=== PATIENT | male | born 1940 | race Caucasian/White ===

== ENCOUNTER → 2016-08-26 | Outpatient (CLI) | payer BC ==
[~2016-08-26] MED LIST: ATOR-26 PO; AVD5 PO; CLIN150C PO; CYCL10TA6 PO; DICL-201 PO; INSU1INJ SC; LISI20TA3 PO; LPR50X PO; LSX/80 PO; MAGN1TAB41 PO; METF-384 PO; POTA-335 PO; PRD150 PO; RPF/8 PO; XNXUNK PO; [UNRECOGNIZED DRUG - CODE] IM
[2016-08-26 11:48] LABS: BASO % 0.5 %; BASO ABS # 0.03 K/uL (0-0.2); COMPLETE YES; EOS % 4.2 %; HEMATOCRIT 49.8 % (42-52); IG% 0.3 %; LYMPH % 34.4 %; LYMPH ABS # 2.03 K/uL (1.2-3.4); MEAN CELL VOLUME 96.1 fL (80-100); MEAN CORPUSCULAR HEMOGLOBIN 31.7 pg (25-34); MEAN CORPUSCULAR HGB CONC 32.9 g/dl (32-36); MEAN PLATELET VOLUME 10.2 fL (7.4-10.4); NEUT % 49.6 %; PLATELET COUNT 179 K/uL (130-400); RED BLOOD COUNT 5.18 M/uL (4.7-6.1)
[2016-08-26 12:01] LABS: ALT/SGPT 31 U/L (12-78); AST/SGOT 17 U/L (15-37); BLOOD UREA NITROGEN 29 mg/dl (7-18); BUN/CREATININE RATIO 19.6 (10-20); CALCIUM 8.7 mg/dl (8.5-10.1); CARBON DIOXIDE 32 mmol/L (21-32); CHLORIDE 105 mmol/L (98-107); GLUCOSE 120 mg/dl (70-99); POTASSIUM 4.5 mmol/L (3.5-5.1); SODIUM 142 mmol/L (136-145)
[2016-08-26 12:06] LABS: ALB/GLOB RATIO 1.1 (0.9-2); ALKALINE PHOSPHATASE 75 U/L (45-117)
[2016-08-26 13:11] LABS: ESTIMATED AVERAGE GLUCOSE 126 mg/dl; HA1C FLAG Normal (Normal)
== END | disposition home or self-care (01) ==
LOC: C.LAB1850 09:48
PROVIDERS: ATTEND Internal Medicine Pulmonary Disease
DX: R39.9 Unspecified symptoms and signs involving the genitourinary system (principal); E78.5 Hyperlipidemia, unspecified; I10 Essential (primary) hypertension; E11.9 Type 2 diabetes mellitus without complications; I25.10 Atherosclerotic heart disease of native coronary artery without angina pectoris; G47.33 Obstructive sleep apnea (adult) (pediatric); I35.1 Nonrheumatic aortic (valve) insufficiency; G47.34 Idiopathic sleep related nonobstructive alveolar hypoventilation

== ENCOUNTER → 2016-09-25 | Outpatient (CLI) | payer BC | END | disposition home or self-care (01) | LOC: C.LAB1850 14:45 | PROVIDERS: ATTEND Urology | DX: N52.9 Male erectile dysfunction, unspecified (principal) ==

== ENCOUNTER → 2017-01-13 | Outpatient (CLI) | payer BC ==
[2017-01-13 13:44] LABS: ESTIMATED AVERAGE GLUCOSE 126 mg/dl; HA1C FLAG Normal (Normal)
[2017-01-13 13:51] LABS: ALT/SGPT 31 U/L (12-78); AST/SGOT 19 U/L (15-37); BLOOD UREA NITROGEN 31 mg/dl (7-18); BUN/CREATININE RATIO 25.6 (10-20); CALCIUM 8.7 mg/dl (8.5-10.1); CARBON DIOXIDE 27 mmol/L (21-32); CHLORIDE 107 mmol/L (98-107); GLUCOSE 116 mg/dl (70-99); POTASSIUM 4.6 mmol/L (3.5-5.1); SODIUM 140 mmol/L (136-145)
[2017-01-13 13:54] LABS: RATIO 24.4 mcg/mg (0-30.0)
[2017-01-13 13:57] LABS: ALB/GLOB RATIO 1.1 (0.9-2); ALKALINE PHOSPHATASE 82 U/L (45-117); CHOLESTEROL 126 mg/dl (0-200); CHOLESTEROL/HDL RATIO 2.3; HDL CHOLESTEROL 54 mg/dl; LDL CHOLESTEROL CALCULATED 54 mg/dl; TRIGLYCERIDES 91 mg/dl (0-150); VERY LOW DENSITY LIPOPROT CALC 18 mg/dl
--- NOTE | 2017-01-22 11:01 | CODING QUERY MEDICAL NECESSITY ---
SUPPORTING DIAGNOSIS NEEDED A supporting diagnosis is required for the test/procedure performed on this patient in order for us to be reimbursed by the patient's insurance. Please provide a supporting diagnosis for the following test/procedure listed below next to the test name along with your signature. *If there is no additional diagnosis for this patient that would support the following test/procedure please document that below next to the test/procedure. Test(s)/Procedure(s) that require a supporting diagnosis: * VITAMIN D, 25-HYDROXY DIAGNOSIS: * VITAMIN B12 DIAGNOSIS: Provider Signature: Date: Thank you Kenyatta Mckeon [employer] Once completed, please kindly fax back to [phone] For questions please call [phone]
== END | disposition home or self-care (01) ==
LOC: C.LAB1850 11:35
PROVIDERS: ATTEND Internal Medicine Endocrinology, Diabetes & Metabolism
DX: E11.9 Type 2 diabetes mellitus without complications (principal); E55.9 Vitamin D deficiency, unspecified; R53.83 Other fatigue

== ENCOUNTER → 2017-03-03 | Outpatient (CLI) | payer BC ==
[2017-03-03 12:05] LABS: BASO % 0.5 %; BASO ABS # 0.03 K/uL (0-0.2); COMPLETE YES; HEMATOCRIT 51.4 % (42-52); IG% 0.3 %; LYMPH % 30.2 %; MEAN CELL VOLUME 98.8 fL (80-100); MEAN CORPUSCULAR HEMOGLOBIN 32.7 pg (25-34); MEAN CORPUSCULAR HGB CONC 33.1 g/dl (32-36); MONO % 10.2 %; NEUT % 54.8 %; PLATELET COUNT 160 K/uL (130-400); WHITE BLOOD COUNT 5.97 K/uL (4.8-10.8)
[2017-03-03 12:18] LABS: ALT/SGPT 30 U/L (12-78); BLOOD UREA NITROGEN 30 mg/dl (7-18); BUN/CREATININE RATIO 23.4 (10-20); CALCIUM 9.1 mg/dl (8.5-10.1); CARBON DIOXIDE 32 mmol/L (21-32); CHLORIDE 105 mmol/L (98-107); GLUCOSE 110 mg/dl (70-99); POTASSIUM 4.5 mmol/L (3.5-5.1); SODIUM 142 mmol/L (136-145)
[2017-03-03 12:23] LABS: ALB/GLOB RATIO 1.1 (0.9-2); ALKALINE PHOSPHATASE 74 U/L (45-117); AST/SGOT 23 U/L (15-37)
[2017-03-03 12:33] LABS: ESTIMATED AVERAGE GLUCOSE 128 mg/dl; HA1C FLAG Normal (Normal)
--- NOTE | 2017-03-18 07:29 | CODING QUERY MEDICAL NECESSITY ---
CQSUPPORTING DIAGNOSIS NEEDED A supporting diagnosis is required for the test/procedure performed on this patient in order for us to be reimbursed by the patient's insurance. Please provide a supporting diagnosis for the following test/procedure listed below next to the test name along with your signature. *If there is no additional diagnosis for this patient that would support the following test/procedure please document that below next to the test/procedure. Test(s)/Procedure(s) that require a supporting diagnosis: DOS 03/03/17 PROSTATE SPECIFIC TEST Provider Signature: Date: Thank you Milka Barrera [employer] Once completed, please kindly fax back to [phone] For questions please call [phone]
--- NOTE | 2017-03-18 07:30 | CODING QUERY MEDICAL NECESSITY ---
CQSUPPORTING DIAGNOSIS NEEDED A supporting diagnosis is required for the test/procedure performed on this patient in order for us to be reimbursed by the patient's insurance. Please provide a supporting diagnosis for the following test/procedure listed below next to the test name along with your signature. *If there is no additional diagnosis for this patient that would support the following test/procedure please document that below next to the test/procedure. Test(s)/Procedure(s) that require a supporting diagnosis: DOS 03/03/17 COMPLETE BLOOD COUNT Provider Signature: Date: Thank you Milka Barrera [employer] Once completed, please kindly fax back to [phone] For questions please call [phone]
== END | disposition home or self-care (01) ==
LOC: C.LAB1850 10:12
PROVIDERS: ATTEND Urology
DX: N52.9 Male erectile dysfunction, unspecified (principal); E78.5 Hyperlipidemia, unspecified; E11.9 Type 2 diabetes mellitus without complications; G47.33 Obstructive sleep apnea (adult) (pediatric); G47.34 Idiopathic sleep related nonobstructive alveolar hypoventilation

== ENCOUNTER → 2017-05-20 | Outpatient (CLI) | payer BC ==
[2017-05-20 17:34] LABS: LYME DISEASE AB IGG NEG (NEG)
[2017-05-20 17:36] LABS: LYME DISEASE AB IGM EQUIVOCAL (NEG)
== END | disposition home or self-care (01) ==
LOC: C.LAB1850 15:31
PROVIDERS: ATTEND Physician Assistant Medical
DX: M25.50 Pain in unspecified joint (principal); T14.8XXA Other injury of unspecified body region, initial encounter; W57.XXXA Bitten or stung by nonvenomous insect and other nonvenomous arthropods, initial encounter

== ENCOUNTER → 2017-09-04 | Outpatient (CLI) | payer BC ==
[~2017-09-04] MED LIST changes: +DABI150C3 PO; -PRD150 PO
[2017-09-04 16:35] LABS: HEMATOCRIT 51.5 % (42-52); MEAN CELL VOLUME 100.4 fL (80-100); MEAN CORPUSCULAR HEMOGLOBIN 33.1 pg (25-34); MEAN PLATELET VOLUME 9.9 fL (7.4-10.4); PLATELET COUNT 196 K/uL (130-400); RED CELL DISTRIBUTION WIDTH CV 14.1 % (11.5-14.5); RED CELL DISTRIBUTION WIDTH SD 52.2 fL (36.4-46.3); WHITE BLOOD COUNT 7.05 K/uL (4.8-10.8)
[2017-09-04 17:04] LABS: ALBUMIN 3.5 gm/dl (3.4-5.0); ALT/SGPT 45 U/L (12-78); BLOOD UREA NITROGEN 36 mg/dl (7-18); CALCIUM 8.5 mg/dl (8.5-10.1); CARBON DIOXIDE 32 mmol/L (21-32); CREATININE 1.76 mg/dl (0.60-1.40); GLUCOSE 117 mg/dl (70-99); POTASSIUM 4.6 mmol/L (3.5-5.1); SODIUM 141 mmol/L (136-145)
[2017-09-04 17:09] LABS: ALKALINE PHOSPHATASE 88 U/L (45-117); AST/SGOT 31 U/L (15-37); TOTAL PROTEIN 6.8 gm/dl (6.4-8.2)
[2017-09-05 08:41] LABS: HEMOGLOBIN A1C 5.5 % (4.5-5.6)
== END | disposition home or self-care (01) ==
LOC: C.LAB1850 15:45
PROVIDERS: ATTEND Urology
DX: R39.9 Unspecified symptoms and signs involving the genitourinary system (principal); E11.9 Type 2 diabetes mellitus without complications

== ENCOUNTER 2019-12-07 09:57 | Inpatient (IN) ==
--- NOTE | 2019-11-09 13:46 | PAT Medication Instructions ---
Medication Instructions Date of Service November 09, 2019 Home Medications Medication Instructions Recorded magnesium oxide 400 mg (241.3 mg 400 mg PO BID #180 tab 04/14/19 magnesium) tablet lansoprazole 30 mg capsule,delayed 30 mg PO DAILY #90 cap 04/21/19 release atorvastatin 80 mg tablet See Rx Instructions .ROUTE 07/19/19 .COMPLEX #90 tablet potassium chloride 20 mEq See Rx Instructions .ROUTE 08/10/19 tablet,extended release .COMPLEX #60 tab metoprolol tartrate 50 mg tablet 50 mg PO BID #180 tab 08/20/19 hydrocodone 5 mg-acetaminophen 300 1 tab PO Q6H #100 tab 08/26/19 mg tablet diazepam 5 mg tablet 5 mg PO TID #90 tab 09/20/19 testosterone cypionate 200 mg/mL 200 mg IM ONCE #5 ml 09/28/19 intramuscular oil diclofenac sodium 75 mg 75 mg PO BID #180 tab 10/18/19 tablet,delayed release lisinopril 20 mg tablet 20 mg PO QAM #90 tab 10/18/19 apixaban 5 mg tablet 5 mg PO BID #180 tab 10/25/19 alprazolam [Xanax] 0.25 mg PO BID PRN dutasteride 0.5 mg PO QAM furosemide 40 mg PO Q2D tamsulosin 0.4 mg PO QPM magnesium oxide 400 mg (241.3 mg magnesium) tablet 400 mg PO BID lansoprazole 30 mg capsule,delayed release 30 mg PO DAILY atorvastatin 80 mg tablet See Rx Instructions .ROUTE .COMPLEX potassium chloride 20 mEq tablet,extended release See Rx Instructions .ROUTE .COMPLEX metoprolol tartrate 50 mg tablet 50 mg PO BID hydrocodone 5 mg-acetaminophen 300 mg tablet 1 tab PO Q6H diazepam 5 mg tablet 5 mg PO TID testosterone cypionate 200 mg/mL intramuscular oil 200 mg IM ONCE diclofenac sodium 75 mg tablet,delayed release 75 mg PO BID lisinopril 20 mg tablet 20 mg PO QAM apixaban 5 mg tablet 5 mg PO BID cetirizine [Zyrtec] 10 mg PO DAILY PRN [id number] acid-lutein [Centrum Silver] 1 tab PO QAM vitamin B complex 1 tab PO QAM Continue as directed testosterone cypionate 200 mg/mL intramuscular oil 200 mg IM ONCE ASK your surgeon for instructions diclofenac sodium 75 mg tablet,delayed release 75 mg PO BID ASK your prescriber and surgeon apixaban 5 mg tablet 5 mg PO BID -- must be held for a minimum of 3 days prior to surgery for spinal anesthesia. DO NOT take the morning of surgery furosemide 40 mg PO Q2D magnesium oxide 400 mg (241.3 mg magnesium) tablet 400 mg PO BID potassium chloride 20 mEq tablet,extended release See Rx Instructions .ROUTE .COMPLEX lisinopril 20 mg tablet 20 mg PO QAM cetirizine [Zyrtec] 10 mg PO DAILY PRN [id number] acid-lutein [Centrum Silver] 1 tab PO QAM vitamin B complex 1 tab PO QAM Take morning of surgery With a small sip of water, OTHERWISE NOTHING TO EAT OR DRINK AFTER MIDNIGHT: alprazolam [Xanax] 0.25 mg PO BID PRN (if needed) dutasteride 0.5 mg PO QAM lansoprazole 30 mg capsule,delayed release 30 mg PO DAILY metoprolol tartrate 50 mg tablet 50 mg PO BID hydrocodone 5 mg-acetaminophen 300 mg tablet 1 tab PO Q6H (if needed, may be taken up to four hours before surgery) diazepam 5 mg tablet 5 mg PO TID Take evening before surgery alprazolam [Xanax] 0.25 mg PO BID PRN (if needed) tamsulosin 0.4 mg PO QPM magnesium oxide 400 mg (241.3 mg magnesium) tablet 400 mg PO BID atorvastatin 80 mg tablet PO QPM metoprolol tartrate 50 mg tablet 50 mg PO BID hydrocodone 5 mg-acetaminophen 300 mg tablet 1 tab PO Q6H (if needed) diazepam 5 mg tablet 5 mg PO TID cetirizine [Zyrtec] 10 mg PO DAILY PRN (if needed) Other Notes If you have any questions please call us at [phone] or [phone] or [phone] or [phone]
--- NOTE | 2019-11-10 15:05 | Anesthesiology Consultation ---
Date of Service November 10, 2019 Assessment & Plan (1) Encounter for pre-operative examination: Note to Kip re: hyperkalemia, await response. Cardio clearance scheduled for 11/21 [facility]. Patient has allergy to ropivicaine listed. He does not recall any specific incident, tho "pruritis with knee injection" is listed. Had bupivacaine regional block with TSA, no complications noted. Also has h/o multilevel spinal fusion. May not be candidate for SAB. Surgeon and patient aware. Chart Review Chart Review: Acceptable Risk for Surgery (pending surgeon ordered cardio clearance 11/21 [facility], optimization of K+) and Patient seen in Pre Admission Testing Teaching & Discussion Instructed NPO after midnight before surgery, except medications with 15 cc of water. Medication instructions provided according to the PAT guidelines. History Surgery Operation Date: 12/07/19 09:25 Proposed Procedures p Right Total Hip Arthroplasty, Possible Acetabular Component - Mann Rubio, Height/Weight Height: 6 ft 3 in Weight: 124.6 kg Allergies Allergy/AdvReac Type Severity Reaction Status Date / Time nickel Allergy Intermediate contact Verified 11/03/19 13:18 dermatitis acetaminophen Allergy Mild PRURITIS Verified 11/03/19 13:18 [From Tylenol-Codeine #3] adhesive Allergy Mild SKIN Verified 11/03/19 13:18 IRRITATION,SWELLING codeine Allergy Mild ITCHING Verified 11/03/19 13:18 Penicillins Allergy Mild ITCHING Verified 11/03/19 13:18 ropivacaine Allergy Mild PRURITIS Verified 11/03/19 13:18 REACTION WITH KNEE INJECTION shrimp Allergy Mild ITCHY HANDS Verified 11/03/19 13:18 Medications Home Medications Medication Instructions Recorded Confirmed Last Taken alprazolam [Xanax] 0.25 mg PO BID PRN 03/12/18 11/03/19 Unknown dutasteride 0.5 mg PO QAM 03/12/18 11/03/19 03/27/18 07:30 furosemide 40 mg PO Q2D 03/12/18 11/03/19 03/25/18 11:00 tamsulosin 0.4 mg PO QPM 03/12/18 11/03/19 03/26/18 23:00 magnesium oxide 400 mg (241.3 mg 400 mg PO BID #180 tab 04/14/19 11/03/19 Unknown magnesium) tablet lansoprazole 30 mg capsule,delayed 30 mg PO DAILY #90 cap 04/21/19 11/03/19 Unknown release atorvastatin 80 mg tablet See Rx Instructions .ROUTE 07/19/19 11/03/19 Unknown .COMPLEX #90 tablet potassium chloride 20 mEq See Rx Instructions .ROUTE 08/10/19 11/03/19 Unknown tablet,extended release .COMPLEX #60 tab metoprolol tartrate 50 mg tablet 50 mg PO BID #180 tab 08/20/19 11/03/19 Unknown hydrocodone 5 mg-acetaminophen 300 1 tab PO Q6H #100 tab 08/26/19 11/03/19 Unknown mg tablet diazepam 5 mg tablet 5 mg PO TID #90 tab 09/20/19 11/03/19 Unknown testosterone cypionate 200 mg/mL 200 mg IM ONCE #5 ml 09/28/19 11/03/19 Unknown intramuscular oil diclofenac sodium 75 mg 75 mg PO BID #180 tab 10/18/19 11/03/19 Unknown tablet,delayed release lisinopril 20 mg tablet 20 mg PO QAM #90 tab 10/18/19 11/03/19 Unknown apixaban 5 mg tablet 5 mg PO BID #180 tab 10/25/19 11/03/19 Unknown cetirizine [Zyrtec] 10 mg PO DAILY PRN 11/03/19 11/03/19 Unknown [id number] acid-lutein [Centrum 1 tab PO QAM 11/03/19 11/03/19 Unknown Silver] vitamin B complex 1 tab PO QAM 11/03/19 11/03/19 Unknown Past Medical History Medical History Atrial fibrillation PAROXYSMAL BPH (benign prostatic hyperplasia) CAD (coronary artery disease) CABG X2 (2012)- [facility], SVG-OM Cardiomyopathy TACHYCARDIA INDUCED (RESOLVED) CHF (congestive heart failure) DIASTOLIC CKD (chronic kidney disease) Degenerative disc disease Diabetes mellitus, type 2 DIET CONTROLLED (KETO DIET) GERD (gastroesophageal reflux disease) CONTROLLED Hearing deficit Hiatal hernia SUSPECTED Hyperlipidemia Hypertension Obesity Osteoarthritis Peripheral neuropathy Personal history of kidney stones Sleep apnea CPAP Valvular disease MODERATE AI Exercise / Class Metabolic Activity III < 4 Walking/Shop/Light housework (Using cane for ambulation, does not have stairs, denies CP or SOB with ambulation) Does endorse some chest pain but feels 2/2 acid reflux, states cardiology also suspects GI etiology Past Family History Family History Unknown Skin cancer Lung cancer Coronary arteriosclerosis Grandmother (Paternal) Family history of diabetes mellitus Past Surgical History Surgical History Fusion of lumbar spine History of appendectomy History of cardiac cath 2012 (NO STENTS) DONE AT [facility] History of carpal tunnel release LEFT History of cataract surgery BILATERAL CATARACT History of cholecystectomy History of colonoscopy History of nasal septoplasty History of surgery PENIS PUMP IMPLANT (STILL INTACT/WORKING) History of tooth extraction HAS IMPLANTS History of total hip arthroplasty RIGHT OLGA LIDIA; REVISION History of total knee replacement B/L Hx of decompression of ulnar nerve LEFT= 09/07/15= GRADE VIEW 2, CARO #2, ETT 7.5 AT [facility] (ROPIVACAINE ALLERGY; NO PNB USED) Hx of heart bypass surgery CABG X2 (2012)- [facility], SVG-OM ([facility]) Past Anesthesia History No Hx of Anesthesia Complications and No Family Hx of Anesthesia Complications History of PONV No Hx of PONV and No Hx of Motion Sickness Social History Smoking Status: Former smoker tobacco type: cigarettes Do You Dip or Chew Tobacco: No Smoking End Date: 1995 Hx Alcohol Use: Yes Alcohol type: wine and hard liquor alcohol intake frequency: a few times a week Hx Substance Use: No substance use type: does not use Review of Systems Pt denies any recent chest pain, shortness of breath, palpitations, cough, fever or URI. +seasonal allergy symptoms, itchy eyes/runny nose Physical Exam Vital Signs BP: 151/57 -- pt reports this is high for him, usually 120s systolic at home P: 65bpm SPO2: 95% RA T: 98.0 F R: 18 ENMT Mouth: + dental restorations (few implants); no chipped teeth and no loose teeth Thyromental Distance: < 3.5 Finger Breadths (3) Mallampati Class: II Neck + limited neck extension (moderately) Respiratory normal respiratory effort Auscultation: lungs clear to auscultation bilaterally Cardiovascular Rate/Rhythm: regular rate and regular rhythm Heart Sounds: + murmur (I/ systolic RSB) Extremities: no edema Testing Laboratory Results 11/10/19 15:20 11/10/19 15:20 PT 11.0 Seconds (9.0-12.0) 11/10/19 15:20 INR 1.0 (0.9-1.1) 11/10/19 15:20 APTT 29.5 Seconds (21.0-31.0) 11/10/19 15:20 Urine Color Yellow 11/10/19 Unknown Urine Appearance Clear (Clear) 11/10/19 Unknown Urine pH 5.0 (4.5-7.5) 11/10/19 Unknown Ur Specific [place] 1.017 (1.000-1.030) 11/10/19 Unknown Urine Protein Negative (Negative) 11/10/19 Unknown Urine Glucose (UA) Negative (Negative) 11/10/19 Unknown Urine Ketones Negative (Negative) 11/10/19 Unknown Urine Nitrite Negative (Negative) 11/10/19 Unknown Ur Leukocyte Esterase Negative (Negative) 11/10/19 Unknown *creatinine is at baseline, pt has CKD. Note sent to PCP re: K+ Electrocardiogram Date: 11/10/19 Findings: + NSR @ (61bpm) and + RBBB When compared with EKG of 04/01/2018, septal infarct is now present. QT has shortened. Ventricular rate is decreased by 30 bpm and QRS axis shifted left. Chest X-Ray Date: 11/10/19 FINDINGS: Cardiac silhouette is enlarged, unchanged. Prior median sternotomy with findings suggestive of CABG. Calcified plaque of the thoracic aortic arch. Left shoulder total joint arthroplasty. No pneumothorax, pleural effusion, airspace consolidation or overt pulmonary edema. Degenerative changes of the right shoulder and spine. IMPRESSION: Cardiomegaly without acute process. Echocardiogram Date: 08/19/19 EF: 55% Moderately dilated left ventricle with normal systolic function. No regional wall motion abnormalities. Severe concentric LVH. Mildly dilated right ventricle with reduced systolic function. Right ventricle not well visualized. At least mild to moderate eccentric aortic regurgitation. Aortic regurgitation may be underestimated due to poor image quality. Technically difficult study, enhanced with IV Definity. No significant change from prior study on 11/28/2014.
--- NOTE | 2019-11-10 15:54 | XRay Report ---
XR chest Pre-admission PA/Lat HISTORY: 79 years-old Male PAT preoperative exam COMPARISON: Chest radiograph 03/30/2018 TECHNIQUE: PA and lateral views of the chest FINDINGS: Cardiac silhouette is enlarged, unchanged. Prior median sternotomy with findings suggestive of CABG. Calcified plaque of the thoracic aortic arch. Left shoulder total joint arthroplasty. No pneumothorax , pleural effusion, airspace consolidation or overt pulmonary edema. Degenerative changes of the righ t shoulder and spine. IMPRESSION: Cardiomegaly without acute process. ACT 112: Negative or not required by law. The above report was generated using voice recognition software. It may contain grammatical, syntax o r spelling errors. Electronically signed by: Richy Pierce M.D. 11/10/2019 3:52 PM
[2019-11-10 16:28] LABS: Basophils # (auto) 0.02 K/uL (0-0.2); Basophils % (auto) 0.3 %; Eosinophils # (auto) 0.22 K/uL (0-0.5); Eosinophils % (auto) 3.5 %; Hematocrit (blood only) 48.6 % (42-52); Hemoglobin 15.9 g/dL (14.0-18.0); Immature Granulocytes # (auto) 0.02 K/uL (0.00-0.02); Immature Granulocytes % (auto) 0.3 %; Lymphocytes # (auto) 1.13 K/uL (1.2-3.4); Lymphocytes % (auto) 18.1 %; Mean Corpuscular Hemoglobin 31.6 pg (25-34); Mean Corpuscular Hgb Conc 32.7 g/dL (32-36); Mean Corpuscular Volume 96.6 fL (80-100); Mean Platelet Volume 10.4 fL (7.4-10.4); Monocytes # (auto) 0.63 K/uL (0.11-0.59); Monocytes % (auto) 10.1 %; Neutrophils # (auto) 4.22 K/uL (1.4-6.5); Neutrophils % (auto) 67.7 %; Platelet Count 158 K/uL (130-400); RDW Coefficient of Variation 14.2 % (11.5-14.5); RDW Standard Deviation 50.3 fL (36.4-46.3); Red Blood Count 5.03 M/uL (4.7-6.1); White Blood Count 6.24 K/uL (4.8-10.8)
[2019-11-10 16:32] LABS: Appearance Urine Clear (Clear); Bilirubin Urine Negative (Negative); Blood Urine Negative (Negative); Color Urine Yellow; Glucose Urine UA Negative (Negative); Ketones Urine Negative (Negative); Leukocyte Esterase Urine Negative (Negative); Nitrite Urine Negative (Negative); Protein Urine Negative (Negative); Specific Gravity Urine 1.017 (1.000-1.030); Urobilinogen Urine Negative (Negative)
[2019-11-10 16:38] LABS: Partial Thromboplastin Ratio 1.1; Partial Thromboplastin Time 29.5 Seconds (21.0-31.0)
[2019-11-10 16:48] LABS: Albumin Level 3.4 gm/dl (3.4-5.0); BUN Creatinine Ratio 36.6 (10-20); Calcium 8.6 mg/dl (8.5-10.1); Creatinine Clr Calc Pharmacy 53.1 ml/min; Est GFR (African American) 46.1; Est GFR (Non-African American) 39.8; Potassium 5.6 mmol/L (3.5-5.1)
--- NOTE | 2019-11-10 16:51 | Electrocardiogram Report ---
Test Reason : Blood Pressure : / mmHG Vent. Rate : 061 BPM Atrial Rate : 061 BPM P-R Int : 196 ms QRS Dur : 186 ms QT Int : 452 ms P-R-T Axes : 060 239 022 degrees QTc Int : 455 ms Normal sinus rhythm Right bundle branch block Abnormal ECG When compared with ECG of 01-APR-2018 07:17, Vent. rate has decreased BY 38 BPM QRS axis Shifted left Septal infarct is now Present QT has shortened Confirmed by Joes Alfredo Crockett ([id number]) on 11/10/2019 4:51:10 PM Referred By: Mann Rubio Confirmed By:Jose Alfredo Crockett
[2019-11-11 05:47] LABS: Estimated Average Glucose 131 mg/dl; Hemoglobin A1C 6.2 % (4.5-5.6)
--- NOTE | 2019-12-04 18:47 | History & Physical Report ---
Date of Service December 07, 2019 Assessment & Plan (1) Failed total hip arthroplasty: I have indicated the patient for revision right total hip replacement, head and liner exchange, possible acetabulum. The risks, benefits and complications of surgery were explained to the patient which include but not limited to infection, acute blood loss, DVT/PE, injury to nerves, vessels, bone, soft tissue, arthrofibrosis, chronic pain, failure of the prosthesis, hip dislocation, leg length discrepancy, need for additional surgery, cardiac and pulmonary events and . The patient wished to proceed with surgery and informed consent was obtained at this time. We will plan to restart the patients home blood thinner, Eliquis post-operatively for DVT prophylaxis. Upon discharge the patient will be discharged home with home health services. Appropriate clearances by PCP and cardiology were obtained. Patient has nickel allergy however has done well over the last 16 years without any adverse reactions with his current implant. History of Present Illness Chief Complaint: Failed right total hip arthroplasty Primary Care Provider: Tylor Almodovar MD The patient is a 79 year old male who presents with failed right total hip arthroplasty. Patient has a history for right hip OLGA LIDIA 11/[address] Mayer. The patient had recurrent instability with multiple dislocation and underwent revision right OLGA LIDIA with constrained liner 08/2003. The patient has done well since without any recurrent of right total hip instability however in August 2019 the patient was seen in the office with increasing right hip pain. XRs at that time demonstrated failure of the constrained liner with a broken displaced ring. The patient has failed outpatient conservative treatments to this point which included NSAIDs and home exercise/walking program. The patient's pain and limited function have progressed to the point where they severely hinder their activities of daily living and they no longer tolerate exercise programs. They are requesting to proceed with revision total hip replacement surgery. Allergies Allergy/AdvReac Type Severity Reaction Status Date / Time nickel Allergy Intermediate contact Verified 12/07/19 10:28 dermatitis adhesive Allergy Mild SKIN Verified 12/07/19 10:28 IRRITATION,SWELLING codeine Allergy Mild ITCHING Verified 12/07/19 10:28 Penicillins Allergy Mild ITCHING Verified 12/07/19 10:28 ropivacaine Allergy Mild PRURITIS Verified 12/07/19 10:28 REACTION WITH KNEE INJECTION shrimp Allergy Mild ITCHY HANDS Verified 12/07/19 10:28 Home Medications Home Medications Medication Instructions Recorded Confirmed Type alprazolam [Xanax] 0.25 mg PO BID PRN 03/12/18 12/07/19 History dutasteride 0.5 mg PO QAM 03/12/18 12/07/19 History tamsulosin 0.4 mg PO QPM 03/12/18 12/07/19 History magnesium oxide 400 mg (241.3 mg 400 mg PO BID #180 tab 04/14/19 12/07/19 Rx magnesium) tablet lansoprazole 30 mg capsule,delayed 30 mg PO DAILY #90 cap 04/21/19 12/07/19 Rx release atorvastatin 80 mg tablet See Rx Instructions .ROUTE 07/19/19 12/07/19 Rx .COMPLEX #90 tablet metoprolol tartrate 50 mg tablet 50 mg PO BID #180 tab 08/20/19 12/07/19 Rx testosterone cypionate 200 mg/mL 200 mg IM ONCE #5 ml 09/28/19 12/07/19 Rx intramuscular oil diclofenac sodium 75 mg 75 mg PO BID #180 tab 10/18/19 12/07/19 Rx tablet,delayed release lisinopril 20 mg tablet 20 mg PO QAM #90 tab 10/18/19 12/07/19 Rx apixaban 5 mg tablet 5 mg PO BID #180 tab 10/25/19 12/07/19 Rx cetirizine [Zyrtec] 10 mg PO DAILY PRN 11/03/19 12/07/19 History ot-olh-dncpi acid-lutein [Centrum 1 tab PO QAM 11/03/19 12/07/19 History Silver] vitamin B complex 1 tab PO QAM 11/03/19 12/07/19 History hydrocodone 5 mg-acetaminophen 300 1 tab PO Q6H #100 tab 11/18/19 12/07/19 Rx mg tablet diazepam 5 mg PO TID PRN 12/07/19 12/07/19 History Past Med/Surg History Medical History Atrial fibrillation PAROXYSMAL BPH (benign prostatic hyperplasia) CAD (coronary artery disease) CABG X2 (2012)- [facility], SVG-OM Cardiomyopathy TACHYCARDIA INDUCED (RESOLVED) CHF (congestive heart failure) DIASTOLIC CKD (chronic kidney disease) Degenerative disc disease Diabetes mellitus, type 2 DIET CONTROLLED (KETO DIET) GERD (gastroesophageal reflux disease) CONTROLLED Hearing deficit Hiatal hernia SUSPECTED Hyperlipidemia Hypertension Obesity Osteoarthritis Peripheral neuropathy Personal history of kidney stones Sleep apnea CPAP Valvular disease MODERATE AI Surgical History Fusion of lumbar spine History of appendectomy History of cardiac cath 2012 (NO STENTS) DONE AT [facility] History of carpal tunnel release LEFT History of cataract surgery BILATERAL CATARACT History of cholecystectomy History of colonoscopy History of nasal septoplasty History of surgery PENIS PUMP IMPLANT (STILL INTACT/WORKING) History of tooth extraction HAS IMPLANTS History of total hip arthroplasty RIGHT OLGA LIDIA; REVISION History of total knee replacement B/L Hx of decompression of ulnar nerve LEFT= 09/07/15= GRADE VIEW 2, CARO #2, ETT 7.5 AT [facility] (ROPIVACAINE ALLERGY; NO PNB USED) Hx of heart bypass surgery CABG X2 (2012)- [facility]OM[facility]-L[facility], SVG-OM ([facility]) Family History Unknown Skin cancer Lung cancer Coronary arteriosclerosis Grandmother (Paternal) Family history of diabetes mellitus Social History Preferred Language: Ivorian Communication Ability: Effective Visual Impairment: No Limitations Lead Architect Required: No Beliefs That Will Affect Care: None marital status: Current Living Situation: Spouse Feels Safe at Home: Yes Safety Concerns: Feels Safe At This Time Smoking Status: Former smoker Tobacco Type: cigarettes ; Age Started Using Tobacco: 15 ; Age Quit Using Tobacco: 56 ; packs per day: 1.5 ; Do You Dip or Chew Tobacco: No ; Smoking End Date: 1995 ; Number of Years Since Quit: 24 ; Second Hand Exposure: Yes (IN THE PAST) ; Tobacco Cessation Education Requested by Patient: No Hx Alcohol Use: Yes Alcohol type: wine and hard liquor Hx Substance Use: No Review of Systems Review of Systems: All systems reviewed & are unremarkable except as noted in HPI & below Constitutional: as per Subjective / HPI Physical Exam Physical Exam: RLE NVSI +EHL/FHL/TA/GS SILT grossly, +2 DP pulse, compartments soft NT, antalgic gait. Constitutional: WD/WN, vitals as above Eyes: PERRL, conjunctivae normal, anicteric sclerae ENMT: external ear and nose normal, oropharynx normal Neck: trachea midline, no thyromegaly Respiratory: normal respiratory effort, lungs clear to auscultation Cardiovascular: RRR, no murmur, no edema Gastrointestinal (Abdomen): normal bowel sounds, soft, nontender, no hepatosplenomegaly Musculoskeletal: no cyanosis or clubbing, extremities motor strength 5/5 Skin: no rashes, warm and dry Neurologic: patellar DTR's 2+ bilat, sensation intact Psychiatric: A+Ox3, euthymic affect Lymphatic: no cervical or axillary lymphadenopathy Results & Data Results & Data ([facility]) Diagnostic Findings XRs of the right hip demonstrate a well aligned well fixed total hip prothesis with a constrain liner, the ring is displaced and broken in two pieces. Bone scan of the right hip negative for infectious process or loosening.
[~2019-12-07 09:57] MED LIST changes: +ACETAMINOPHEN 500 MG TAB PO SCH; -ATOR-26 PO; -AVD5 PO; +BUPIVACAINE 0.5 % 5 MG/1 ML PF 10ML VIAL ONE; -CLIN150C PO; +CLINDAMYCIN 600 MG/54 ML BAG IV SCH; -CYCL10TA6 PO; +CeleBREX 200 MG CAP PO SCH; -DABI150C3 PO; -DICL-201 PO; +FAMOTIDINE 20 MG TAB PO SCH; +GABAPENTIN 300 MG CAP PO SCH; -INSU1INJ SC; -LISI20TA3 PO; -LPR50X PO; +LR 500ML BOLUS, THEN 15ML/HR IV SCH; -LSX/80 PO; -MAGN1TAB41 PO; -METF-384 PO; +METOCLOPRAMIDE HCL 10 MG TABLET PO SCH; -POTA-335 PO; -RPF/8 PO; +TRANEXAMIC ACID 1,000 MG **IV Intra-op IV SCH; +TRANEXAMIC ACID 1,000 MG **IV Pre-op IV SCH; -XNXUNK PO; -[UNRECOGNIZED DRUG - CODE] IM; +dexAMETHasone 4 MG TAB PO SCH
--- NOTE | 2019-12-07 11:28 | History & Physical Bridge Note ---
Date of Service December 07, 2019 History & Physical Bridge Note I have examined the patient, reviewed the History & Physical and in the interval since the performance of the History & Physical I have noted the following changes of clinical significance: no changes noted
[2019-12-07] MEDS ORDERED: EPINEPHRINE INFIL SCH (11:45)
[2019-12-07] MEDS ORDERED: BUPIVACAINE INFIL SCH (11:45)
[2019-12-07] MEDS ORDERED: [UNRECOGNIZED DRUG - OTHER] INFIL SCH (11:45)
[2019-12-07] MEDS ORDERED: fentaNYL citrate 100 MCG/2 ML VIAL ONE ×2 (13:07→17:28)
[2019-12-07] MEDS ORDERED: MIDAZOLAM HCL 1 MG/ML 2ML VIAL ONE (13:07)
[2019-12-07] MEDS ORDERED: BACITRACIN INJ 50,000 UNIT VIAL ONE (14:27)
[2019-12-07] MEDS ORDERED: CLINDAMYCIN PHOS 300 MG/2 ML VIAL IV SCH (15:30)
--- NOTE | 2019-12-07 16:13 | Post Operative Brief Note ---
Immediate Post Op Note v1 Date of Surgery December 07, 2019 Pre & Post Diagnosis Operation Date: 12/07/19 11:55 Pre-Op Diagnosis: Failed right total hip arthroplasty Post-Op Diagnosis: Failed right total hip arthroplasty I identified the patient and participated in the time-out.: Yes Procedure Operation Date: 12/07/19 11:55 Actual Procedures p Right Revision Total Hip Arthroplasty, Head and Liner Exchange, Constrained(Right) - Mann Rubio DO Surgeon Mann Rubio DO Librarian Sloan Wilburn Estimated Blood Loss 175 Findings Consistent with Post-Op Diagnosis Fluids 1300 cc LR Specimens femoral head, constrained liner, broken locking ring Anesthesia Type Spinal MAC Complications none Disposition Disposition: Recovery Room Overlapping Procedure I was present for: the critical portions of procedure. I was immediately available: during the entire case. Back up surgeon: was not required during procedure.
--- NOTE | 2019-12-07 16:15 | Operative Report ---
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 Post-Op Diagnosis: Failed right total hip arthroplasty I identified the patient and participated in the time-out.: Yes Procedure Operation Date: 12/07/19 11:55 Actual Procedures p Right Revision Total Hip Arthroplasty, Head and Liner Exchange, Constrained(Right) - Mann Rubio DO Surgeon Mann Rubio DO Signing Agent Sloan Wilburn Estimated Blood Loss 175 Findings Consistent with Post-Op Diagnosis Fluids 1300 cc LR Specimens femoral head, constrained liner, broken locking ring, two pieces Drains none Anesthesia Type Spinal MAC Complications none Disposition Disposition: Recovery Room Description of Procedure Following induction of adequate spinal anesthesia, the patient was transferred to the OR table and placed in lateral decubitus position with left hip down. The right hip was prepped and draped in the typical sterile fashion and a posterolateral/Bari-Langenbeck incision was made inline with the previous incision. Subcutaneous tissue was sharply dissected. Electrocautery was utilized for hemostasis. The fascia was incised throughout the length of the wound and retracted with the Charnley retractor. The bursa which was scared in was taken down and the short external rotators and capsule were identified and tagged with two #1 Vicryl sutures. The short external rotators and capsule were divided from the posterior aspect of the femur using electrocautery. Both external rotators and posterior capsule were swept posterior and protected, along with protecting the sciatic nerve. 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 Meticulous removal of intra-articular scar tissue was performed with bovie until only healthy appearing synovial tissue remained. Locking ring was identified broken into two pieces and loosely sitting within the joint. These pieces were removed at this time. The hip prosthesis was dislocated by flexion and internal rotation in a controlled manner. The femoral head was removed from the trunion, which was clean and was without signs of wear. The femoral stem stability assessed and found to be stable without signs of loosening. Next, exposure of the acetabulum was obtained. Additional scar tissue removal and debridement of the intra-articular soft tissue was performed. Utilizing the liner extraction tool the liner was removed. Acetabular cup stability was assessed and found to be stable and witho ut signs of loosening. Next, a 56 trial liner was inserted and locked into place. A +3.5 femoral head was placed onto the stem and a trial reduction was carried out. The hip was found to be stable in all degrees of rotation with hip flexion and extension with no impingement and leg lengths were equal. The hip was dislocated once more, trial components were removed and access to the acetabulum was re- established. The trial liner was removed and the cup was irrigated to ensure all debris was removed. A final 56 mm Trident constrained acetabular insert was placed and seated properly. Access to the proximal femur was once more gained and the final 28+3.5 mm femoral head was impacted into place and the hip was reduced. Range of motion was checked once again and found to be stable. The wound was copiously irrigated with sterile saline solution with bacitracin. The carmelo-incisional soft tissue was injected utilizing [place] ortho mix which includes a combination of Ropivicaine 0.5% 150mg, Bupivicaine 0.5%/Epinephrine 1:200,000 30ml, Toradol 30mg, Dexamethasone 4mg, Ketamine 10mg, Clonidine 100mcg and NSS 30ml solution. Capsule, external rotators and deep tissue were repaired with #1 Vicryl. The fascia was closed using #1 Vicryl, subcutaneous tissue was closed using 2-0 Vicryl, and skin was closed with mic. Sterile dressings were applied which included Prevena incisional vac. A abduction pillow was placed between the legs. The patient tolerated the procedure well and was transported to PACU in stable condition. Due to the complex nature of the procedure, the entire surgery was performed with the operational assistance of Sloan Wilburn PA-C. The social worker assistant, under direct supervision, was involved in the actual performance of all aspects of the surgical procedure including patient positioning, hemostasis, tissue retraction, instrument management and wound closure. I attest to the content of the Intraoperative Record and any orders documented therein. Any exceptions are noted below.
[2019-12-07] MEDS ORDERED: PROPOFOL IV EMULSION 10 MG/ML 20 ML VIAL IV ONE (16:18)
[2019-12-07] MEDS ORDERED: LIDOCAINE HCL 2% 2 ML VIAL/AMP(20MG/ML) INFIL ONE (16:18)
[2019-12-07] MEDS ORDERED: PHENYLEPHRINE HCL 10 MG/ML VIAL ONE (16:18)
[2019-12-07] MEDS ORDERED: ONDANSETRON INJ 2 MG/ML 2 ML VIAL ONE (16:18)
--- NOTE | 2019-12-07 17:01 | XRay Report ---
XR hip 1V RT w pelvis CLINICAL HISTORY: Postoperative examination COMPARISON: None. DISCUSSION: There are postsurgical changes of a total right hip arthroplasty. The acetabular and femo ral components appear well seated. There is no dislocation. There is gas present within the soft tiss ues consistent with recent surgery. There are mild osteoarthritic changes involving the left hip. Rad iopaque densities project over the base of the penis. There are vascular calcifications. IMPRESSION: Postsurgical changes of a total right hip arthroplasty. ACT 112: Negative or not required by law. Electronically signed by: Jomar To M.D. 12/07/2019 5:00 PM
--- NOTE | 2019-12-07 17:15 | Anesthesiology Progress Note ---
Date of Service December 07, 2019 Anesthesia Post Procedure Vital Signs Vital Signs: Temp Pulse Pulse Resp BP BP Pulse Ox 12/07/19 17:10 62 18 133/61 94 12/07/19 17:00 72 16 139/60 95 12/07/19 16:50 68 14 126/58 L 94 12/07/19 16:40 97.3 F L 66 16 122/51 L 96 12/07/19 10:20 98.4 F 67 20 180/63 H 97 Pain Intensity Right Hip: Pain Intensity: 2 Transfer of Care Handoff Completed per policy Notes Mental Status: alert / awake / arousable and participated in evaluation Patient Amnestic to Procedure: Yes Nausea / Vomiting: adequately controlled Pain: adequately controlled Airway Patency, RR, SpO2: stable & adequate BP & HR: stable & adequate Hydration State: stable & adequate Neuraxial Anesthesia: was administered and sensory block is resolving Anesthetic Complications: no major complications apparent and Pt Satisfied with anesthetic care
[2019-12-07] MEDS ORDERED: ATROPINE SULFATE 0.1 MG/ML 10ML SYR IV PRN (17:31)
[2019-12-07] MEDS ORDERED: ONDANSETRON INJ 2 MG/ML 2 ML VIAL IV PRN ×2 (17:31→18:20)
[2019-12-07] MEDS ORDERED: ePHEDrine sulfate 50 MG/ML AMP IV PRN (17:31)
[2019-12-07] MEDS: fentaNYL citrate 100 MCG/2 ML VIAL IV PRN ×2 (17:33→17:38)
[2019-12-07] MEDS ORDERED: HYDROmorphone INJ 0.5 MG/0.5 ML SYR IV PRN (18:20)
[2019-12-07] MEDS ORDERED: MAGNESIUM HYDROXIDE SUSP 30 ML UDC PO PRN (18:20)
[2019-12-07] MEDS ORDERED: METOCLOPRAMIDE HCL INJ 5 MG/ML 2 ML VIAL IV PRN (18:20)
[2019-12-07] MEDS ORDERED: bisacodyL 10 MG SUPP PR PRN (18:20)
[2019-12-07] MEDS ORDERED: NALOXONE HCL 0.4 MG/1 ML VIAL/CARP IV PRN (18:20)
[2019-12-07] MEDS ORDERED: ALPRAZolam 0.25 MG TABLET PO PRN (18:20)
--- NOTE | 2019-12-07 18:23 | Orthopedic Progress Note ---
Date of Service December 07, 2019 Assessment & Plan (1) Failed total hip arthroplasty: s/p revision R OLGA LIDIA, head and liner, constrained -clinda x 24 -DVT ppx: SCDs, TEDs, Eliquis -WBAT RLE -PT/OT -Posterior hip precautions -PO XR demonstrates well aligned well fixed total hip prothesis without fracture/dislocation -am labs -DC planning Admission and Anticipated Discharge Date Admission Date: December 07, 2019 Subjective Post Operative Progress Note Patient seen sitting up in bed, comfortable, denies complaints, pain well controlled, no acute issues. Review of Systems Review of Systems: All systems reviewed & are unremarkable except as noted in HPI & below Constitutional: as per Subjective / HPI Physical Exam Physical Exam: RLE NVSI +EHL/FHL/TA/GS SILT grossly, +2 DP pulse, compartments soft NT, dressing cdi. Constitutional: WD/WN, vitals as above Results & Data ([facility]) Vital Signs (Past 12 Hours) Vital Signs Temp Pulse Pulse Resp BP BP Pulse Ox 12/07/19 18:00 54 L 12 135/51 L 95 12/07/19 17:50 36.7 C 58 L 12 134/49 L 96 12/07/19 17:40 58 L 12 135/49 L 96 12/07/19 17:30 53 L 14 147/55 H 95 12/07/19 17:20 36.7 C 58 L 14 143/59 H 92 12/07/19 17:10 62 18 133/61 94 12/07/19 17:00 72 16 139/60 95 12/07/19 16:50 68 14 126/58 L 94 12/07/19 16:40 36.3 C L 66 16 122/51 L 96 12/07/19 10:20 36.9 C 67 20 180/63 H 97
[2019-12-07] MEDS: OXYCODONE HCL IR 5 MG TAB (IMMEDIATE RELEASE) PO PRN (18:53)
[2019-12-07] MEDS ORDERED: SODIUM CHLORIDE 0.9% 1000ML 1,000 ML IV SCH (19:00)
[2019-12-07] MEDS ORDERED: SENNA 8.6 MG TAB PO SCH (21:00)
[2019-12-07] MEDS ORDERED: TAMSULOSIN HCL 0.4 MG CAP PO SCH (21:00)
[2019-12-07] MEDS: METOPROLOL TARTRATE 50 MG TAB PO SCH (22:09)
[2019-12-07] MEDS: DOCUSATE SODIUM 100 MG CAP PO SCH (22:09)
[2019-12-07] MEDS: ACETAMINOPHEN 500 MG TAB PO SCH (22:10)
[2019-12-07] MEDS: DUTASTERIDE: ORDER AWAITING ACTION SCH (23:42)
[2019-12-07] MEDS: CLINDAMYCIN 900 MG in DEXTROSE 5% 50 ML IV SCH (23:42)
[2019-12-08] MEDS: ACETAMINOPHEN 500 MG TAB PO SCH ×2 (05:06→14:23)
[2019-12-08 05:57] LABS: Basophils # (auto) 0.01 K/uL (0-0.2); Basophils % (auto) 0.1 %; Hematocrit (blood only) 43.8 % (42-52); Immature Granulocytes # (auto) 0.01 K/uL (0.00-0.02); Immature Granulocytes % (auto) 0.1 %; Lymphocytes % (auto) 5.4 %; Mean Corpuscular Hemoglobin 31.3 pg (25-34); Mean Platelet Volume 10.1 fL (7.4-10.4); Monocytes # (auto) 1.04 K/uL (0.11-0.59); Monocytes % (auto) 11.3 %; Neutrophils # (auto) 7.68 K/uL (1.4-6.5); Neutrophils % (auto) 83.1 %; Platelet Count 144 K/uL (130-400); RDW Coefficient of Variation 14.7 % (11.5-14.5); RDW Standard Deviation 52.7 fL (36.4-46.3); Red Blood Count 4.47 M/uL (4.7-6.1); White Blood Count 9.24 K/uL (4.8-10.8)
[2019-12-08 06:23] LABS: Calcium 8.1 mg/dl (8.5-10.1); Creatinine Clr Calc Pharmacy 67.2 ml/min; Est GFR (African American) 61.1; Est GFR (Non-African American) 52.8; Potassium 4.5 mmol/L (3.5-5.1)
--- NOTE | 2019-12-08 07:38 | Orthopedic Progress Note ---
Date of Service December 08, 2019 Assessment & Plan (1) Failed total hip arthroplasty: s/p revision R OLGA LIDIA, head and liner, constrained POD#1 -clinda x 24 -DVT ppx: SCDs, TEDs, Eliquis -WBAT RLE -PT/OT -Posterior hip precautions -PO XR demonstrates well aligned well fixed total hip prothesis without fracture/dislocation -am labs - as above, hgb 14.0 -DC planning - home with Admission and Anticipated Discharge Date Admission Date: December 07, 2019 Subjective Post Operative Progress Note Patient seen sitting up in bed, comfortable, denies complaints, pain well controlled, no acute issues. Denies F/C/N/V/SOB/CP. Patient was also seen post operatively on 12/07/19, progress note placed, however the note was accidently canceled on 12/08/19 when placing today's progress note. On 12/07/19 patient was doing well and without complications, RLE PE NVSI grossly, dressing CDI. A/P as noted below. Review of Systems Review of Systems: All systems reviewed & are unremarkable except as noted in HPI & below Constitutional: as per Subjective / HPI Physical Exam Physical Exam: RLE NVSI +EHL/FHL/TA/GS SILT grossly, +2 DP pulse, compartments soft NT, dressing cdi. Constitutional: WD/WN, vitals as above Results & Data ([facility]) Vital Signs (Past 12 Hours) Vital Signs Temp Pulse Resp BP Pulse Ox 12/08/19 03:50 36.4 C L 57 L 16 135/54 L 97 12/07/19 23:22 36.7 C 52 L 16 144/61 H 98 12/07/19 21:18 36.3 C L 69 18 137/57 L 95 12/07/19 20:16 36.6 C 72 18 133/53 L 95 Laboratory Results 12/08/19 12/08/19 12/07/19 Range/Units 05:30 05:30 16:40 WBC 9.24 (4.8-10.8) K/uL RBC 4.47 L (4.7-6.1) M/uL Hgb 14.0 (14.0-18.0) g/dL Hct 43.8 (42-52) % MCV 98.0 (80-100) fL MCH 31.3 (25-34) pg MCHC 32.0 (32-36) g/dL RDW Std Deviation 52.7 H (36.4-46.3) fL RDW Coeff of Anjelica 14.7 H (11.5-14.5) % Plt Count 144 (130-400) K/uL MPV 10.1 (7.4-10.4) fL Immature Gran % (Auto) 0.1 % Neut % (Auto) 83.1 % Lymph % (Auto) 5.4 % Barton % (Auto) 11.3 % Eos % (Auto) 0.0 % Baso % (Auto) 0.1 % Neut # (Auto) 7.68 H (1.4-6.5) K/uL Lymph # (Auto) 0.50 L (1.2-3.4) K/uL Barton # (Auto) 1.04 H (0.11-0.59) K/uL Eos # (Auto) 0.00 (0-0.5) K/uL Baso # (Auto) 0.01 (0-0.2) K/uL Immature Gran # (Auto) 0.01 (0.00-0.02) K/uL Sodium 140 (136-145) mmol/L Potassium 4.5 (3.5-5.1) mmol/L Chloride 109 H (98-107) mmol/L Carbon Dioxide 26 (21-32) mmol/L Anion Gap 5.0 (3-11) BUN 23 H (7-18) mg/dl Creatinine 1.29 (0.6-1.4) mg/dl Est Cr Clr Drug Dosing 67.2 ml/min Est GFR ( Amer) 61.1 Est GFR (Non-Af Amer) 52.8 BUN/Creatinine Ratio 18.0 (10-20) Glucose 151 H (70-99) mg/dl POC Glucose 153 H (70-99) mg/dl Calcium 8.1 L (8.5-10.1) mg/dl Blood Type Antibody Screen Crossmatch 12/07/19 12/07/19 Range/Units 10:19 10:15 WBC (4.8-10.8) K/uL RBC (4.7-6.1) M/uL Hgb (14.0-18.0) g/dL Hct (42-52) % MCV (80-100) fL MCH (25-34) pg MCHC (32-36) g/dL RDW Std Deviation (36.4-46.3) fL RDW Coeff of Anjelica (11.5-14.5) % Plt Count (130-400) K/uL MPV (7.4-10.4) fL Immature Gran % (Auto) % Neut % (Auto) % Lymph % (Auto) % Barton % (Auto) % Eos % (Auto) % Baso % (Auto) % Neut # (Auto) (1.4-6.5) K/uL Lymph # (Auto) (1.2-3.4) K/uL Barton # (Auto) (0.11-0.59) K/uL Eos # (Auto) (0-0.5) K/uL Baso # (Auto) (0-0.2) K/uL Immature Gran # (Auto) (0.00-0.02) K/uL Sodium (136-145) mmol/L Potassium (3.5-5.1) mmol/L Chloride (98-107) mmol/L Carbon Dioxide (21-32) mmol/L Anion Gap (3-11) BUN (7-18) mg/dl Creatinine (0.6-1.4) mg/dl Est Cr Clr Drug Dosing ml/min Est GFR ( Amer) Est GFR (Non-Af Amer) BUN/Creatinine Ratio (10-20) Glucose (70-99) mg/dl POC Glucose 128 H (70-99) mg/dl Calcium (8.5-10.1) mg/dl Blood Type O Positive Antibody Screen NEGATIVE Crossmatch See Detail
[2019-12-08] MEDS ORDERED: MULTIVITAMIN TAB PO SCH (09:00)
[2019-12-08] MEDS ORDERED: APIXABAN 5 MG TABLET PO SCH (09:00)
[2019-12-08] MEDS ORDERED: PANTOprazole 40 MG TAB PO SCH (09:00)
[2019-12-08] MEDS ORDERED: lisinopriL 20 MG TAB PO SCH (09:00)
[2019-12-08] MEDS ORDERED: ATORVASTATIN 40 MG TAB PO SCH (09:00)
[2019-12-08] MEDS: CLINDAMYCIN 900 MG in DEXTROSE 5% 50 ML IV SCH (09:02)
[2019-12-08] MEDS: OXYCODONE HCL IR 5 MG TAB (IMMEDIATE RELEASE) PO PRN ×2 (09:04)
[2019-12-08] MEDS: DOCUSATE SODIUM 100 MG CAP PO SCH (09:06)
[2019-12-08] MEDS: METOPROLOL TARTRATE 50 MG TAB PO SCH (09:07)
[2019-12-08] MEDS: DUTASTERIDE: ORDER AWAITING ACTION SCH (09:08)
--- NOTE | 2019-12-08 14:16 | Discharge Summary ---
Date of Service December 08, 2019 Admission HPI Per Admitting Provider The patient is a 79 year old male who presents with failed right total hip arthroplasty. Patient has a history for right hip OLGA LIDIA 11/[address] Mayer. The patient had recurrent instability with multiple dislocation and underwent revision right OLGA LIDIA with constrained liner 08/2003. The patient has done well since without any recurrent of right total hip instability however in August 2019 the patient was seen in the office with increasing right hip pain. XRs at that time demonstrated failure of the constrained liner with a broken displaced ring. The patient has failed outpatient conservative treatments to this point which included NSAIDs and home exercise/walking program. The patient's pain and limited function have progressed to the point where they severely hinder their activities of daily living and they no longer tolerate exercise programs. They are requesting to proceed with revision total hip replacement surgery. Principal Diagnosis Revision right total hip replacement, head and liner exchange, constrained -Failed right total hip replacement Discharge Exam RLE NVSI +EHL/FHL/TA/GS SILT grossly, +2 DP pulse, compartments soft NT, dressing cdi. Constitutional WD/WN, vitals as above Discharge Data Allergies Allergy/AdvReac Type Severity Reaction Status Date / Time nickel Allergy Intermediate contact Verified 12/07/19 10:28 dermatitis adhesive Allergy Mild SKIN Verified 12/07/19 10:28 IRRITATION,SWELLING codeine Allergy Mild ITCHING Verified 12/07/19 10:28 Penicillins Allergy Mild ITCHING Verified 12/07/19 10:28 ropivacaine Allergy Mild PRURITIS Verified 12/07/19 10:28 REACTION WITH KNEE INJECTION shrimp Allergy Mild ITCHY HANDS Verified 12/07/19 10:28 Consultations 12/08/19 08:00 Consult Case Management - Discharge Planning Routine Procedures Performed Operation Date: 12/07/19 11:55 Actual Procedures p Right Revision Total Hip Arthroplasty, Head and Liner Exchange, Constrained(Right) - Mann Rubio DO Hospital Course (1) Failed total hip arthroplasty: The patient is a 79 -year-old male who presents with pain and failed right total hip replacement with broken locking ring on constrained liner and failed outpatient conservative treatments. The patient's symptoms have progressed to the point where it has been difficult to perform even normal activities of daily living. I indicated the patient for a revision right total hip arthroplasty, the risks, benefits and complications of the procedure include but not limited to infection, bleeding, damage to bone, nerves, vessels, surrounding soft tissue, may develop blood clots, loss of function, leg length discrepancy, dislocation, failure of the components, loosening of the components, the need for additional surgery and . The patient wished to proceed with surgery at this time and informed consent was obtained. Hospital Course: On 12/07/19 the patient was taken to the operating room, adequate anesthesia administered and underwent a revision right total hip arthroplasty. The patient tolerated the procedure well and was taken to the PACU in stable condition. Post-operatively the patient was started on a DVT ppx medication and given appropriate IV antibiotics. Consults were placed to physical therapy, occupational therapy and case management. On POD#1, the patient did well overnight and their pain was well controlled. Labs were drawn and the Hgb was 14.0. The patient progressed well with PT. Dressings were changed at this time and the incision was clean, dry and intact. The patients hospital stay was relatively uneventful and they were deemed stable by the orthopedic team and consultants to be discharged home with on 12/08/19. Discharge Instructions: Upon discharge the patient may weight bear as tolerates through their operative extremity. They were instructed to keep the incision clean and dry at all times. The patient may shower but should not submerge the incision, avoid bathing, pools and hot tubes. The patient was given a script for pain medication and should take as instructed. The patient's home blood thinner, Eliquis was restarted and should take as directed. The patient was instructed to not drive or travel for long distances until cleared to do so. If the patient develops any symptoms of fevers, chills, nausea, vomiting, increased redness, swelling, pain or drainage from the surgical site, they should notify the office and/or proceed to the nearest emergency room. The patient should follow up in 10-14 days after surgery for their routine post-operative follow-up appointment and should call the office to confirm the date and time. s/p revision R OLGA LIDIA, head and liner, constrained POD#1 -clinda x 24 -DVT ppx: SCDs, TEDs, Eliquis -WBAT RLE -PT/OT -Posterior hip precautions -PO XR demonstrates well aligned well fixed total hip prothesis without fracture/dislocation -am labs - as above, hgb 14.0 -DC planning - home with Total Time Total Time Spent Total Time Spent (In Minutes): 30 Discharge Plan Discharge Items Patient Disposition: Home - Home Health Services Reason For Visit: Unilateral Primary Osteoarthritis, Right hip Discharge Diagnosis: Revision right total hip replacement Condition on Discharge: Good Activity: Per Instructions section Lifting: Wait until after follow-up appointment Bathing: Keep incision dry Bathing Comment: No bathing, pools or hot tubs Sexual Activity: Wait until after follow-up appointment Exercise/Sports: Wait until after follow-up appointment Driving/Machine Use: No driving Weightbearing: Full weightbearing Non-emergency contact: Primary Care Provider and Surgeon Call non-emergency contact if: you have any medication questions, your symptoms worsen, your pain is not controlled, your pain is worsening, your pain is unusual for you, your pain is concerning for you, you have a fever, your temperature is above 101, your wound has increased redness, your wound has incre ased drainage and your wound pain has increased Follow-up/Referrals: Tylor lAmodovar MD [Primary Care Provider] - Diet: Regular Addtl Attending Provider Instructions: ACTIVITY RECOMMENDATIONS: SELF CARE INSTRUCTIONS AFTER TOTAL HIP REPLACEMENT Until the incision and soft tissues around your hip have healed, there is a possibility that the hip prosthesis could dislocate. A. Observe the following precautions to prevent dislocation: 1. Don't bend your hip greater than 90 degrees. 2. Avoid crossing your legs or ankles while standing or lying. 3. Sit with your feet placed 6 inches apart. 4. When sitting, keep your knees below your hips. Sit on a firm surface, avoid deep, soft chairs and couches. Use an elevated toilet seat in the bathroom. 5. Don't bend over at the waist. Use a long handled shoehorn and a sock aid to help you put on your shoes and socks. A graphics specialist can help you spanish moss picker objects that are too high or too low to reach. 6. Keep car riding to a minimum for at least one month after surgery. B. Your balance may be shaky for a while. Use crutches or a walker until directed by your doctor. C. Use hand rails when walking on stairs. D. Wear low heeled shoes with non-slip soles. E. Be sure that your floors are free of things that could trip you - throw rugs, electrical cords, small objects. Avoid wet and waxed floors, especially with crutches and canes. F. Try to walk several times a day with rest periods between. G. Continue with all the exercises taught to you in the hospital. Again, make walking a part of your daily routine. SPECIAL CARE INSTRUCTIONS: VERY IMPORTANT TO READ AND REVIEW A. You may still be at risk for phlebitis and blood clots. 1. Wear surgical stockings (JANKI hose) for 2 weeks after surgery to improve circulation and reduce swelling. 2. Take your home blood thinner, Eliquis twice daily or as directed by your doctor. This is your blood thinner. 3. High risk patients may be prescribed a stronger blood thinner if necessary. 4. If you are on Coumadin normally, your family doctor/emergency preparedness coordinator should monitor your blood work. Expect a phone call the day of or the day after bloodwork is drawn to adjust your dosage. B. You must take antibiotics before having dental work, bladder, bowel and other surgery. Your doctor will provide you with a permanent card to carry describing precautions. C. Call [facility] if you have a fever, redness or swelling around the incision, cloudy drainage from incision, or sudden increase in pain in your hip, not relieved by your regular pain medication. D. Please call the office at if you have any concerns or questions about your operation or recovery. * YOU MAY SHOWER, NO TUB BATHS UNTIL CLEARED BY YOUR DOCTOR. * WEAR JANKI HOSE 20 HOURS PER DAY FOR 2 WEEKS. * YOU SHOULD USE A WALKER OR CRUTCHES FOR 2-4 WEEKS. THIS WILL HELP PREVENT STRAIN ON YOUR HIP MUSCLE AND ALLOW IT TO HEAL PROPERLY. YOU MAY WEAN TO A CANE TOLERATED. * MOST PATIENTS WILL HAVE HOME NURSING FOR THERAPY. IF YOU DECIDE TO DO OUTPATIENT PHYSICAL THERAPY, PLEASE SCHEDULE THIS 3 TIMES PER WEEK. *PREVENA incisional vac is a special dressing covering your incision. This dressing provides a sterile dry environment while you are healing. The dressing is to be left in place for 7 days post-operatively. Your home nurse or surgeon will remove. If you develop any redness or blisters or have any questions notify your surgeon immediately. FOLLOW UP VISIT: If appointment is not already scheduled: Please call [facility] to make a follow-up appointment for 2 weeks after your surgery at . Pending Studies at Discharge: No Stand-Alone Forms: My [facility], Opioid Pain Management, Smoking Cessation Medications and DC Order Prescriptions: New acetaminophen 500 mg Tablet 1,000 mg PO Q8 PRN (Reason: pain/fever) Qty: 90 RF: 0 oxycodone 5 mg Tablet 5 mg PO Q6H MDD 4 PRN (Reason: pain) Qty: 30 RF: 0 sennosides [Senokot] 8.6 mg Tablet 17.2 mg PO HS PRN (Reason: constipation) Qty: 28 RF: 0 Continued magnesium oxide 400 mg (241.3 mg magnesium) tablet 400 mg PO BID Qty: 180 RF: 3 lansoprazole 30 mg capsule,delayed release(DR/EC) 30 mg PO DAILY Qty: 90 RF: 3 atorvastatin 80 mg tablet See Rx Instructions .ROUTE .COMPLEX Qty: 90 RF: 4 metoprolol tartrate 50 mg tablet 50 mg PO BID Qty: 180 RF: 3 lisinopril 20 mg tablet 20 mg PO QAM Qty: 90 RF: 3 Eliquis 5 mg tablet 5 mg PO BID Qty: 180 RF: 3 cetirizine [Zyrtec] 10 mg Tablet 10 mg PO DAILY PRN (Reason: allergy relief) RF: 0 vitamin B complex Tablet 1 tab PO QAM RF: 0 Centrum Silver 400-250 mcg Tablet,Chewable 1 tab PO QAM RF: 0 diazepam 5 mg tablet 5 mg PO TID PRN (Reason: anxiety) RF: 0 tamsulosin 0.4 mg Capsule 0.4 mg PO QPM RF: 0 dutasteride 0.5 mg Capsule 0.5 mg PO QAM RF: 0 Discontinued testosterone cypionate 200 mg/mL oil 200 mg IM ONCE Qty: 5 RF: 0 diclofenac sodium 75 mg tablet,delayed release (DR/EC) 75 mg PO BID Qty: 180 RF: 3 hydrocodone-acetaminophen 5-300 mg tablet 1 tab PO Q6H Qty: 100 RF: 0 alprazolam [Xanax] 0.25 mg Tablet 0.25 mg PO BID PRN (Reason: Anxiety) RF: 0 Discharge Orders: Discharge Order (Routine); Ordered 12/08/19 Ordered By: Mann Spaulding/Other Patient Handouts: DVT Post Op Prevention, A1C Admission Data Admit Date/Time: 12/07/19 16:41 Attending Provider: Mann Rubio Admit Provider: Mann Rubio Primary Care Provider: Tylor Almodovar Other Providers: Tahir,Home Health Other Interventions: Discharge Summary Assessment (RN) Last Done: 12/08/19 14:18 DC Date/Time DO NOT enter until pt leaves facility: 12/08/19 15:15
== END 2019-12-08 15:15 | disposition home health service (06) | DRG 464 ==
LOC: ASU 09:57 → 3E 16:41

== ENCOUNTER 2023-04-22 07:00 | Inpatient (IN) ==
[2023-04-22 08:13] LABS: Basophils # (auto) 0.04 K/uL (0.00-0.20); Basophils % (auto) 0.6 %; Eosinophils # (auto) 0.21 K/uL (0.00-0.50); Eosinophils % (auto) 3.3 %; Hematocrit (blood only) 49.1 % (42.0-52.0); Hemoglobin 16.3 g/dl (14.0-18.0); Immature Granulocytes # (auto) 0.02 K/uL (0.01-0.20); Immature Granulocytes % (auto) 0.3 %; Lymphocytes # (auto) 0.72 K/uL (1.20-3.40); Lymphocytes % (auto) 11.3 %; Mean Corpuscular Hgb Conc 33.2 g/dL (32.0-36.0); Mean Corpuscular Volume 96.5 fL (80.0-100.0); Mean Platelet Volume 10.2 fL (9.4-12.4); Monocytes # (auto) 0.66 K/uL (0.11-0.59); Monocytes % (auto) 10.3 %; Neutrophils # (auto) 4.75 K/uL (1.40-6.50); Neutrophils % (auto) 74.2 %; Platelet Count 164 K/uL (130-400); RDW Standard Deviation 57.6 fL (36.4-46.3); Red Blood Count 5.09 M/uL (4.70-6.10)
--- NOTE | 2023-04-22 08:15 | Emergency Department Note ---
Impression & Plan SOB (shortness of breath), CHF (congestive heart failure), Pedal edema, Elevated troponin, Hypomagnesemia ED Provider Note NAME: KEELEY CABRERA AGE: 83 SEX: M : 1940 ARRIVES VIA: Walk-In INFORMANT: [Patient][family] ED PROVIDER(S): [Chun Ingram MD] CHIEF COMPLAINT: Respiratory problems HISTORY OF PRESENT ILLNESS: The patient is an 83-year-old former smoker. He has had 1 cardiac bypass. The patient had a stress echo several months ago and did well. He had a recent upper GI that was unremarkable and a recent negative chest x-ray. The patient states that he has been increasingly short of breath for several months. He especially notices it with exertion or if he tries to lay flat. He cannot sleep at night. Things have worsened to the point where he felt he should be seen. The patient states that he has noticed some increasing pedal and abdominal edema. He has gained about 6 pounds. He is on diuretics. The patient is concerned that he may have COPD that is yet to be diagnosed. He is asking for a pulmonology referral at discharge. PMHx/PSHx/Social Hx: See Below PHYSICAL EXAM: GENERAL: Patient is in no acute distress. HEENT: No acute trauma, normocephalic atraumatic, mucous membranes moist, no nasal congestion. NECK: No stridor, no adenopathy, no meningismus, trachea is midline. LUNGS: Clear to auscultation bilaterally, no wheeze, no rhonchi, breath sounds equal. HEART: 2/6 systolic murmur, regular rate and rhythm. ABDOMEN: Soft, nontender, no peritonitis. EXTREMITIES: No cyanosis, full range of motion of all the joints without pain or difficulty. Moderate bilateral pedal edema. NEUROLOGIC: Oriented x 3, no acute motor or sensory deficits, no focal weakness. SKIN: No jaundice, no diaphoresis. DIFFERENTIAL DIAGNOSIS: Fluid overload, CHF, renal failure, electrolyte imbalance, COPD, PE, NE, anemia, among others. EMERGENCY DEPARTMENT PROCEDURES: MEDICAL DECISION MAKING: There is no leukocytosis or anemia. There is a normal platelet count. INR is slightly high at 1.2, likely from his Eliquis use. There is an elevation of the creatinine which is baseline looking back at previous testing. Magnesium was somewhat low at 1.5. No concerning liver enzyme elevation. ECG shows a sinus rhythm with a right bundle branch block, no obvious acute ischemia. Cardiac enzyme testing x1 is slightly elevated. This troponin elevation could be secondary to mismatch or potentially cardiac injury. Chest film does show CHF, no pneumonia. Chest CT does show CHF, no pneumonia. BNP is elevated consistent with fluid overload. On exam, the patient did have moderate pedal edema. The patient received IV Lasix, 80 mg. He is diuresing. He was given 1 g of IV magnesium. Given his ongoing dyspnea, given the findings on x-ray, given his laboratory testing results, I do think a hospital stay would be warranted. He needs further diuresis and cardiac work-up. I spoke with the patient and case management, the on-call hospitalist was consulted. Prior/Outside records/notes reviewed: Recent stress echo result, recent GI note. ECG per my interpretation: Indication was shortness of breath. The ECG shows a sinus rhythm with some PVCs. There is a right bundle branch block. The rate is 83. There is no concerning ST elevation. The QTc is 505. Continuous Cardiac Monitoring per my interpretation: An order was placed for continuous cardiac monitoring. The monitor shows a rate of 76 with sinus rhythm with PVCs.. Imaging/x-ray results per my interpretation: Chest x-ray shows some CHF, no pneumonia. Chronic Medical/Social conditions affecting care: Coronary artery disease, advanced age. Care/Management discussed with: Case management, the on-call hospitalist. Level of care consideration(s): After review of the information above and other included data: --I believe the patient requires escalation of care to admission DISPOSITION: Admitted Past Med/Surg History Medical History Degenerative disc disease Diabetes mellitus, type 2 DIET CONTROLLED (KETO DIET) Peripheral neuropathy Obesity Cardiomyopathy TACHYCARDIA INDUCED (RESOLVED) CKD (chronic kidney disease) Valvular disease MODERATE AI Hiatal hernia SUSPECTED CHF (congestive heart failure) DIASTOLIC CAD (coronary artery disease) CABG X2 (2012)- THOMAS-LAD, SVG-OM GERD (gastroesophageal reflux disease) Osteoarthritis BPH (benign prostatic hyperplasia) Personal history of kidney stones Hearing deficit Hyperlipidemia Hypertension Atrial fibrillation PAROXYSMAL Sleep apnea CPAP Surgical History Fusion of lumbar spine History of surgery PENIS PUMP IMPLANT (STILL INTACT/WORKING) History of cardiac cath 2012 (NO STENTS) DONE AT [place] Hx of decompression of ulnar nerve LEFT= 09/07/15= GRADE VIEW 2, CARO #2, ETT 7.5 AT [facility] (ROPIVACAINE ALLERGY; NO PNB USED) History of carpal tunnel release LEFT History of total hip arthroplasty RIGHT OLGA LIDIA; REVISION History of total knee replacement B/L History of colonoscopy History of cholecystectomy History of appendectomy History of tooth extraction HAS IMPLANTS History of nasal septoplasty History of cataract surgery BILATERAL CATARACT Hx of heart bypass surgery CABG X2 (2012)- THOMAS-LAD, SVG-OM () Family History Unknown Skin cancer Lung cancer Coronary arteriosclerosis Grandmother (Paternal) Family history of diabetes mellitus Social History Smoking Status: Former smoker Age Started Using Tobacco: 15; Age Quit Using Tobacco: 56; packs per day: 1.5; Second Hand Exposure: Yes (IN THE PAST); Do You Dip or Chew Tobacco: No; Hx Alcohol Use: Yes Alcohol type: wine and hard liquor Hx Substance Use: No Preferred Language: Citizen Of [place] Communication Ability: Effective Visual Impairment: No Limitations Care Navigator Required: No Beliefs That Will Affect Care: None marital status: Current Living Situation: Spouse Feels Safe at Home: Yes Assistive Devices: Glasses and Walker Allergies Allergies Allergy/AdvReac Type Severity Reaction Status Date / Time nickel Allergy Intermediate contact Verified 04/22/23 11:43 dermatitis adhesive Allergy Mild SKIN Verified 04/22/23 11:43 IRRITATION,SWELLING codeine Allergy Mild ITCHING Verified 04/22/23 11:43 Penicillins Allergy Mild ITCHING Verified 04/22/23 11:43 ropivacaine Allergy Mild PRURITIS Verified 04/22/23 11:43 REACTION WITH KNEE INJECTION shrimp Allergy Mild ITCHY HANDS Verified 04/22/23 11:43 Home Meds Home Medications Medication Instructions Recorded Confirmed multivit with min-folic 1 tab PO QAM 11/03/19 04/22/23 acid-lutein 400 mcg-250 mcg chewable tablet (Centrum Silver) vitamin B complex 1 tab PO QAM 11/03/19 04/22/23 cholecalciferol (vitamin D3) 50 100 mcg PO BID 07/10/21 04/22/23 mcg (2,000 unit) capsule insulin glargine 100 unit/mL (3 17 unit subcut QPM 10/29/22 04/22/23 mL) subcutaneous pen (Lantus Solostar U-100 Insulin) diclofenac sodium 75 mg 75 mg PO BID 01/29/23 04/22/23 tablet,delayed release apixaban 5 mg tablet (Eliquis) 5 mg PO BID 04/22/23 04/22/23 atorvastatin 80 mg tablet 80 mg PO HS 04/22/23 04/22/23 furosemide 80 mg tablet 40 mg PO QAM 04/22/23 04/22/23 metoprolol tartrate 50 mg tablet 50 mg PO BID 04/22/23 04/22/23 pantoprazole 40 mg tablet,delayed 40 mg PO QAM 04/22/23 04/22/23 release Previous Rx's Medication Instructions Recorded safety needles 21 gauge x 1" (BD #100 ea 02/26/21 Eclipse) syringe with needle 3 mL 21 gauge #100 ea 09/14/21 x 1" ([employer] Luer Lock Syringe with needle) metformin 500 mg tablet 500 mg PO BID #180 tabs 05/13/22 BD Ultra-Fine Mini Pen Needle 31 #100 ea 06/08/22 gauge x 3/16" (pen needle, diabetic) blood sugar diagnostic (OneTouch #300 ea 09/10/22 Verio test strips) testosterone cypionate 200 mg/mL 200 mg IM Q14D #10 mL 09/12/22 intramuscular oil diazepam 5 mg tablet 5 mg PO TID PRN anxiety #30 tabs 11/07/22 betamethasone dipropionate 0.05 % 1 applic topical BID PRN skin 11/29/22 topical ointment irritation #45 grams lisinopril 40 mg tablet 40 mg PO DAILY #30 tabs 01/29/23 dutasteride 0.5 mg capsule 0.5 mg PO QAM #90 caps 02/19/23 hydrocodone 5 mg-acetaminophen 325 1 tab PO Q6H PRN pain #100 tabs 03/03/23 mg tablet tamsulosin 0.4 mg capsule 0.4 mg PO QPM #90 caps 04/15/23 Results & Data (ED) Vital Signs Vital Signs - 24 hr 04/22/23 07:01 04/22/23 07:01 04/22/23 07:47 Temperature 36.6 C Temperature Source Temporal Artery Scan Pulse Rate 76 85 Pulse Rate from SpO2 Sensor 86 Respiratory Rate 16 18 Blood Pressure 169/70 H Blood Pressure Mean 103 Pulse Oximetry 93 91 Oxygen Delivery Method Room Air Room Air Sepsis Recent Fever Within 48 Hours No Sepsis New/Unexplained Change in Mental Status N/A Sepsis Action Taken by Nursing No Action Required 04/22/23 07:49 04/22/23 07:49 04/22/23 08:00 Temperature Temperature Source Pulse Rate 82 71 Pulse Rate from SpO2 Sensor 82 70 Respiratory Rate 19 18 Blood Pressure 178/74 H Blood Pressure Mean 134 Pulse Oximetry 91 90 Oxygen Delivery Method Sepsis Recent Fever Within 48 Hours Sepsis New/Unexplained Change in Mental Status Sepsis Action Taken by Nursing 04/22/23 08:30 04/22/23 08:43 04/22/23 09:00 Temperature Temperature Source Pulse Rate 71 69 81 Pulse Rate from SpO2 Sensor 71 82 Respiratory Rate 20 15 Blood Pressure Blood Pressure Mean Pulse Oximetry 97 97 Oxygen Delivery Method Sepsis Recent Fever Within 48 Hours Sepsis New/Unexplained Change in Mental Status Sepsis Action Taken by Nursing 04/22/23 09:12 04/22/23 09:12 Temperature Temperature Source Pulse Rate 87 Pulse Rate from SpO2 Sensor 87 Respiratory Rate 22 Blood Pressure 194/80 H Blood Pressure Mean 134 Pulse Oximetry 94 Oxygen Delivery Method Sepsis Recent Fever Within 48 Hours Sepsis New/Unexplained Change in Mental Status Sepsis Action Taken by Prison Medications Current Medication List: was personally reviewed by me Laboratory Data Attestation: I reviewed the patient's lab results. 04/22/23 07:55 04/22/23 07:55 Lab Results 04/22/23 04/22/23 Range/Units 07:55 09:30 WBC 6.40 (4.8-10.8) K/ul RBC 5.09 (4.70-6.10) M/uL Hgb 16.3 (14.0-18.0) g/dl Hct 49.1 (42.0-52.0) % MCV 96.5 (80.0-100.0) fL MCH 32.0 (25.0-34.0) pg MCHC 33.2 (32.0-36.0) g/dL RDW Std Deviation 57.6 H (36.4-46.3) fL RDW Coeff of Anjelica 16.0 H (11.5-14.5) % Plt Count 164 (130-400) K/uL MPV 10.2 (9.4-12.4) fL Immature Gran % (Auto) 0.3 % Neut % (Auto) 74.2 % Lymph % (Auto) 11.3 % Glasscock % (Auto) 10.3 % Eos % (Auto) 3.3 % Baso % (Auto) 0.6 % Neut # (Auto) 4.75 (1.40-6.50) K/uL Lymph # (Auto) 0.72 L (1.20-3.40) K/uL Glasscock # (Auto) 0.66 H (0.11-0.59) K/uL Eos # (Auto) 0.21 (0.00-0.50) K/uL Baso # (Auto) 0.04 (0.00-0.20) K/uL Immature Gran # (Auto) 0.02 (0.01-0.20) K/uL PT 13.0 H (9.0-12.0) Seconds INR 1.2 H (0.9-1.1) APTT 27.9 (21.0-31.0) Seconds PTT Ratio 1.0 Sodium 142 (136-145) mmol/L Potassium 4.4 (3.5-5.1) mmol/L Chloride 105 (98-107) mmol/L Carbon Dioxide 30 (21-32) mmol/L Anion Gap 7 (3-11) BUN 46 H (6-23) mg/dl Creatinine 2.10 H (0.6-1.4) mg/dl Est Cr Clr Drug Dosing Not Reportable Est GFR ( Amer) 33.0 ml/min Est GFR (Non-Af Amer) 28.5 ml/min BUN/Creatinine Ratio 21.9 H (10-20) Glucose 171 H (70-99(Fasting)) mg/dl Calcium 9.3 (8.6-10.3) mg/dl Magnesium 1.5 L (1.7-2.4) mg/dl Total Bilirubin 1.5 H (0.2-1.0) mg/dl AST 30 (13-39) U/L ALT 27 (7-52) U/L Alkaline Phosphatase 56 (34-104) U/L Troponin I High Sens 46.0 H 46.1 H (0-20) pg/ml B-Natriuretic Peptide 1924 H (0-100) pg/ml Total Protein 6.5 (6.0-8.3) gm/dl Albumin 3.9 (3.4-5.0) gm/dl Globulin 2.6 (2.5-4.0) gm/dl Albumin/Globulin Ratio 1.5 (0.9-2) Administered Medications Discontinued Medications Furosemide (Furosemide 40 Mg/4 Ml Vial) 80 mg IV ONE ONE Stop: 04/22/23 08:50 Last Admin: 04/22/23 10:21 Dose: 80 mg Documented By: HS Magnesium Sulfate/Dextrose (Magnesium Sulfate / D5w) 1 gm in 100 mls @ 100 mls/hr IV NOW STA Stop: 04/22/23 09:49 Last Infusion: 04/22/23 11:23 Dose: Infused Documented By: Admin: 04/22/23 10:21 Dose: 100 mls/hr Documented By: HS Imaging Data Radiologist's Impression: Chest X-Ray 04/22/23 07:40 XR chest 1V portable HISTORY: 83 years-old Male Chest pain, nonspecific acute chest pain COMPARISON: 11/15/2022 TECHNIQUE: AP view of the chest FINDINGS: Cardiac silhouette is enlarged. Median sternotomy wires are noted. No pneumothorax, pleural effusion or overt pulmonary edema. Pulmonary vascular congestion. Mild bibasilar atelectasis versus scarring. Left shoulder arthroplasty. Degenerative changes of the spine and right shoulder. IMPRESSION: Cardiomegaly with pulmonary vascular congestion. ACT 112: Negative or not required by law. The above report was generated using voice recognition software. It may contain grammatical, syntax or spelling errors. Electronically signed by: Vignesh Pierce M.D. 04/22/2023 9:[address] 04/22/23 08:48 CT SCAN OF THE CHEST WITHOUT IV CONTRAST CLINICAL HISTORY: Dyspnea. COMPARISON STUDY: Chest x-ray dated 04/22/2023. TECHNIQUE: CT scan of the thorax was performed from the thoracic inlet to the upper abdomen. Images are reviewed in the axial, sagittal, and coronal planes. IV contrast was not administered for this examination as per the referring clinician. A dose lowering technique was utilized adhering to the principles of ALARA. There are streak artifacts from a left shoulder arthroplasty. CT DOSE: 977.49 mGy.cm FINDINGS: Thyroid: Enlarged and heterogeneous. Thoracic aorta: There is atherosclerotic calcification of the thoracic aorta, which is normal in caliber and demonstrates standard 3-vessel arch anatomy. Heart: The patient is status post midline sternotomy. The heart is enlarged and without pericardial effusion. The coronary arteries are densely calcified. The main pulmonary arteries are dilated suggesting pulmonary artery hypertension. Lungs and pleural spaces: Emphysematous change is noted. There are trace pleural effusions. No airspace consolidation is seen typical for pneumonia. The trachea and central airways are clear. Foci of parenchymal scarring are seen throughout both lungs, greatest at the lung bases. There are scattered calcified granulomas. Moderate lobular septal thickening is observed. Mediastinum: Subcentimeter mediastinal lymph nodes are not pathologically enlarged by size criteria. Angella: Not well assessed without IV contrast. Axillae: There is no axillary lymphadenopathy. Upper abdomen: Residual enteric contrast is noted in the colon. A 2.3 cm cyst is seen in the upper pole of the left kidney. Skeletal structures: The skeletal structures are osteopenic. No lytic or blastic bony lesions are seen. A left shoulder arthroplasty is in place. Advanced arthritic changes seen in the right shoulder. Fusion hardware is seen in the upper lumbar spine. Spondylotic changes seen throughout the thoracic spine. IMPRESSION: 1. Marked cardiomegaly with mild intralobular septal thickening. This could be seen with acute versus chronic congestive change. Correlate clinically. 2. Trace pleural effusions. 3. There is no airspace consolidation typical for pneumonia. 4. Mild emphysema. 5. Additional findings as above. ACT 112: Negative or not required by law. Electronically signed by: Chun Casarez M.D. 04/22/2023 10:07 AM Discharge Plan Visit Data Chief Complaint: Respiratory Problems Stated Complaint: TROUBLE BREATHING,LABORED BREATHING ED Provider: Chun Ingram Discharge Problem: SOB (shortness of breath), CHF (congestive heart failure), Pedal edema, Elevated troponin, Hypomagnesemia Patient Disposition: Admitted As Inpatient Condition: Fair Discharge Problem: CHF (congestive heart failure) Qualifiers: Heart failure type: unspecified Heart failure chronicity: acute Qualified Code(s): I50.9 - Heart failure, unspecified
[2023-04-22 08:39] LABS: Alanine Aminotransferase 27 U/L (7-52); Albumin Globulin Ratio 1.5 (0.9-2); Albumin Level 3.9 gm/dl (3.4-5.0); Alkaline Phosphatase 56 U/L (34-104); Anion Gap 7 (3-11); Aspartate Aminotransferase 30 U/L (13-39); BUN Creatinine Ratio 21.9 (10-20); Bilirubin,Total 1.5 mg/dl (0.2-1.0); Blood Urea Nitrogen 46 mg/dl (6-23); Calcium 9.3 mg/dl (8.6-10.3); Carbon Dioxide 30 mmol/L (21-32); Chloride 105 mmol/L (98-107); Est GFR (Non-African American) 28.5 ml/min; Globulin 2.6 gm/dl (2.5-4.0); Glucose 171 mg/dl (70-99(Fasting)); Magnesium 1.5 mg/dl (1.7-2.4); Potassium 4.4 mmol/L (3.5-5.1); Sodium 142 mmol/L (136-145); Total Protein 6.5 gm/dl (6.0-8.3)
[2023-04-22 08:41] LABS: INR 1.2 (0.9-1.1); Partial Thromboplastin Time 27.9 Seconds (21.0-31.0)
[2023-04-22] MEDS ORDERED: FUROSEMIDE 40 MG/4 ML VIAL IV ONE (08:49)
[2023-04-22] MEDS ORDERED: MAGNESIUM SULFATE / D5W 1 GM/100 ML BAG IV STA (08:50)
--- NOTE | 2023-04-22 09:01 | XRay Report ---
XR chest 1V portable HISTORY: 83 years-old Male Chest pain, nonspecific acute chest pain COMPARISON: 11/15/2022 TECHNIQUE: AP view of the chest FINDINGS: Cardiac silhouette is enlarged. Median sternotomy wires are noted. No pneumothorax, pleural effusion or overt pulmonary edema. Pulmonary vascular congestion. Mild bibasilar atelectasis versus scarring. Left shoulder arthroplasty. Degenerative changes of the spine and right shoulder. IMPRESSION: Cardiomegaly with pulmonary vascular congestion. ACT 112: Negative or not required by law. The above report was generated using voice recognition software. It may contain grammatical, syntax o r spelling errors. Electronically signed by: Vignesh Pierce M.D. 04/22/2023 9:00 AM
--- NOTE | 2023-04-22 10:09 | CT Scan Report ---
CT SCAN OF THE CHEST WITHOUT IV CONTRAST CLINICAL HISTORY: Dyspnea. COMPARISON STUDY: Chest x-ray dated 04/22/2023. TECHNIQUE: CT scan of the thorax was performed from the thoracic inlet to the upper abdomen. Images are reviewed in the axial, sagittal, and coronal planes. IV contrast was not administered for this ex amination as per the referring clinician. A dose lowering technique was utilized adhering to the gurmeet nciples of SUKHJINDER. There are streak artifacts from a left shoulder arthroplasty. CT DOSE: 977.49 mGy.cm FINDINGS: Thyroid: Enlarged and heterogeneous. Thoracic aorta: There is atherosclerotic calcification of the thoracic aorta, which is normal in rambo shiva and demonstrates standard 3-vessel arch anatomy. Heart: The patient is status post midline sternotomy. The heart is enlarged and without pericardial e ffusion. The coronary arteries are densely calcified. The main pulmonary arteries are dilated suggest ing pulmonary artery hypertension. Lungs and pleural spaces: Emphysematous change is noted. There are trace pleural effusions. No airspa ce consolidation is seen typical for pneumonia. The trachea and central airways are clear. Foci of pa renchymal scarring are seen throughout both lungs, greatest at the lung bases. There are scattered ca lcified granulomas. Moderate lobular septal thickening is observed. Mediastinum: Subcentimeter mediastinal lymph nodes are not pathologically enlarged by size criteria. Angella: Not well assessed without IV contrast. Axillae: There is no axillary lymphadenopathy. Upper abdomen: Residual enteric contrast is noted in the colon. A 2.3 cm cyst is seen in the upper po le of the left kidney. Skeletal structures: The skeletal structures are osteopenic. No lytic or blastic bony lesions are see n. A left shoulder arthroplasty is in place. Advanced arthritic changes seen in the right shoulder. F usion hardware is seen in the upper lumbar spine. Spondylotic changes seen throughout the thoracic sp ine. IMPRESSION: 1. Marked cardiomegaly with mild intralobular septal thickening. This could be seen with acute versus chronic congestive change. Correlate clinically. 2. Trace pleural effusions. 3. There is no airspace consolidation typical for pneumonia. 4. Mild emphysema. 5. Additional findings as above. ACT 112: Negative or not required by law. Electronically signed by: Chun Casarez M.D. 04/22/2023 10:07 AM
--- NOTE | 2023-04-22 12:53 | XCELERA ---
[id number] [id number]___[id number]
[2023-04-22] MEDS ORDERED: ONDANSETRON INJ 2 MG/ML 2 ML VIAL IV PRN (13:42)
[2023-04-22] MEDS ORDERED: POLYETHYLENE (MIRALAX) 17 GM PACK PO PRN (13:42)
[2023-04-22] MEDS ORDERED: MAGNESIUM HYDROXIDE SUSP 30 ML UDC PO PRN (13:42)
[2023-04-22] MEDS ORDERED: ACETAMINOPHEN 325 MG TAB PO PRN (13:42)
[2023-04-22] MEDS ORDERED: ALUMINUM/MAGNESIUM SUSP 30 ML UDC PO PRN (13:42)
[2023-04-22] MEDS ORDERED: diazePAM 5 MG TABLET PO PRN (13:42)
--- NOTE | 2023-04-22 13:50 | Electrocardiogram Report ---
Test Reason : Blood Pressure : / mmHG Vent. 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
[2023-04-22] MEDS ORDERED: METOPROLOL TARTRATE 50 MG TAB PO STA (14:03)
[2023-04-22] MEDS: FUROSEMIDE 40 MG/4 ML VIAL IV SCH (17:59)
--- NOTE | 2023-04-22 18:35 | History & Physical Report ---
Date of Service April 22, 2023 Assessment & Plan (1) CHF (congestive heart failure): Plan: appears that his dyspnea is most likely pulmonary edema due to diastolic CHF and CKD probably exacerbated by sodium intake diuresis consider adjusting AMARI inhibitor/beta-jackelin after diuresis educated on sodium restriction and how to track with the delicate balance between diastolic dysfunction and CKD, discussed we will probably need to have his Lasix more dynamic at home (with daily weights, symptom logs, close/serial BMP checks, etc.) elevated troponin appears to be mild demand ischemia due to above (2) CKD (chronic kidney disease): Plan: see above, CKD 3, slight bump in creatinine probably due to poor forward flow from acute exacerbation (3) Type 2 diabetes mellitus with stage 3b chronic kidney disease: Plan: fingersticks, home meds, supplemental insulin if needed (4) Hypertension: Plan: follow-up with diuresis, holding lisinopril for now due to slight bump in creatinine and need for aggressive diuresis (5) Paroxysmal atrial fibrillation: Plan: rate controlled, anticoagulated with Eliquis (6) DVT prophylaxis: Plan: anticoagulated with Eliquis (7) [facility]: [facility] Anticipate hospitalization until breathing has improved, fluid has been removed. In discussion with patient he is a full code. Admission and Anticipated Discharge Date Admission Date: April 22, 2023 History of Present Illness Chief Complaint: Patient is a very pleasant 83-year-old male who notes that over the last probably 3 months or more he has had intermittent chest painnotes its sort of across his entire chest and feel like a stabbing type pain or gas painhe notes sometimes Gas-X helps sometimes it does not. For this he has had a rather extensive work-up including a GI work-up and a stress test that have been reassuringly negative. Additionally he has had a degree of progressive dyspnea on exertion and progressive orthopneato wear recently he has only really been able to sleep in the chairshe came in today because the overall situation was worsening and he had gone about 3 nights without being able to sleep at all. He has gained 6-8 pounds over that timeframe, but also notes that he was trying to eat significantly less and significantly healthier during that timeframe because he also has lost about 100 pounds over the last year, and whenever he was gaining weight he tried to make up for it by restricting his diet further. He notes occasional sodium intake in the form of soy sauce maybe twice a week, but then his noted that he takes in a good bit of sodium multiple timesalthough she was not really able to specify what it was that he was eating besides the soy sauce. Primary Care Provider: Tylor Almodovar MD See above Allergies Allergy/AdvReac Type Severity Reaction Status Date / Time nickel Allergy Intermediate contact Verified 04/22/23 11:43 dermatitis adhesive Allergy Mild SKIN Verified 04/22/23 11:43 IRRITATION,SWELLING codeine Allergy Mild ITCHING Verified 04/22/23 11:43 Penicillins Allergy Mild ITCHING Verified 04/22/23 11:43 ropivacaine Allergy Mild PRURITIS Verified 04/22/23 11:43 REACTION WITH KNEE INJECTION shrimp Allergy Mild ITCHY HANDS Verified 04/22/23 11:43 Home Medications Medication Instructions Recorded Confirmed Type multivit with min-folic 1 tab PO QAM 11/03/19 04/22/23 History acid-lutein 400 mcg-250 mcg chewable tablet (Centrum Silver) vitamin B complex 1 tab PO QAM 11/03/19 04/22/23 History safety needles 21 gauge x 1" (BD #100 ea 02/26/21 04/10/23 Rx Eclipse) cholecalciferol (vitamin D3) 50 100 mcg PO BID 07/10/21 04/22/23 History mcg (2,000 unit) capsule syringe with needle 3 mL 21 gauge #100 ea 09/14/21 04/10/23 Rx x 1" (emploi.uspoint Luer Lock Syringe with needle) metformin 500 mg tablet 500 mg PO BID #180 tabs 05/13/22 04/22/23 Rx BD Ultra-Fine Mini Pen Needle 31 #100 ea 06/08/22 04/10/23 Rx gauge x 3/16" (pen needle, diabetic) blood sugar diagnostic (OneTouch #300 ea 09/10/22 04/10/23 Rx Verio test strips) testosterone cypionate 200 mg/mL 200 mg IM Q14D #10 mL 09/12/22 04/22/23 Rx intramuscular oil insulin glargine 100 unit/mL (3 17 unit subcut QPM 10/29/22 04/22/23 History mL) subcutaneous pen (Lantus Solostar U-100 Insulin) diazepam 5 mg tablet 5 mg PO TID PRN anxiety #30 tabs 11/07/22 04/22/23 Rx betamethasone dipropionate 0.05 % 1 applic topical BID PRN skin 11/29/22 04/22/23 Rx topical ointment irritation #45 grams diclofenac sodium 75 mg 75 mg PO BID 01/29/23 04/22/23 History tablet,delayed release lisinopril 40 mg tablet 40 mg PO DAILY #30 tabs 01/29/23 04/22/23 Rx dutasteride 0.5 mg capsule 0.5 mg PO QAM #90 caps 02/19/23 04/22/23 Rx hydrocodone 5 mg-acetaminophen 325 1 tab PO Q6H PRN pain #100 tabs 03/03/23 04/22/23 Rx mg tablet tamsulosin 0.4 mg capsule 0.4 mg PO QPM #90 caps 04/15/23 04/22/23 Rx apixaban 5 mg tablet (Eliquis) 5 mg PO BID 04/22/23 04/22/23 History atorvastatin 80 mg tablet 80 mg PO HS 04/22/23 04/22/23 History furosemide 80 mg tablet 40 mg PO QAM 04/22/23 04/22/23 History metoprolol tartrate 50 mg tablet 50 mg PO BID 04/22/23 04/22/23 History pantoprazole 40 mg tablet,delayed 40 mg PO QAM 04/22/23 04/22/23 History release Past Med/Surg History Medical History Degenerative disc disease Diabetes mellitus, type 2 DIET CONTROLLED (KETO DIET) Peripheral neuropathy Obesity Cardiomyopathy TACHYCARDIA INDUCED (RESOLVED) CKD (chronic kidney disease) Valvular disease MODERATE AI Hiatal hernia SUSPECTED CHF (congestive heart failure) DIASTOLIC CAD (coronary artery disease) CABG X2 (2012)- [facility]OM[facility], SVG-OM GERD (gastroesophageal reflux disease) Osteoarthritis BPH (benign prostatic hyperplasia) Personal history of kidney stones Hearing deficit Hyperlipidemia Hypertension Atrial fibrillation PAROXYSMAL Sleep apnea CPAP Surgical History Fusion of lumbar spine History of surgery PENIS PUMP IMPLANT (STILL INTACT/WORKING) History of cardiac cath 2012 (NO STENTS) DONE AT [facility] Hx of decompression of ulnar nerve LEFT= 09/07/15= GRADE VIEW 2, CARO #2, ETT 7.5 AT [facility] (ROPIVACAINE ALLERGY; NO PNB USED) History of carpal tunnel release LEFT History of total hip arthroplasty RIGHT OLGA LIDIA; REVISION History of total knee replacement B/L History of colonoscopy History of cholecystectomy History of appendectomy History of tooth extraction HAS IMPLANTS History of nasal septoplasty History of cataract surgery BILATERAL CATARACT Hx of heart bypass surgery CABG X2 (2013)- [facility]OM[facility], SVG-OM () Family History Unknown Skin cancer Lung cancer Coronary arteriosclerosis Grandmother (Paternal) Family history of diabetes mellitus Social History Smoking Status: Former smoker Age Started Using Tobacco: 15; Age Quit Using Tobacco: 56; packs per day: 1.5; Second Hand Exposure: Yes (IN THE PAST); Do You Dip or Chew Tobacco: No; Hx Alcohol Use: Yes Alcohol type: wine and hard liquor Hx Substance Use: No Preferred Language: Ecuadorean Communication Ability: Effective Visual Impairment: No Limitations 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 HEENT normocephalic atraumatic mucous membranes moist. Cardio is regular no rubs murmurs or gallops. Lungs show faint basilar and midlung scattered rales, although this is admittedly after he has had 80 of Lasix and a rather significant urine output. No rhonchi no wheezes no accessory muscle use. Extremities show bilateral lower extremity edema. Neuro shows cranial nerves II through XII be grossly intact gross motor and sensory intact. Skin without rashes pallor or icterus. Mental status shows good recent and remote recall normal mood and affect good judgment and insight. Normal gait Results & Data Results & Data Vital Signs (Past 12 Hours) Vital Signs Temp Pulse Pulse Resp BP BP Pulse Ox 04/22/23 18:24 04/22/23 16:52 97.9 F 103 H 18 169/80 H 97 04/22/23 16:14 74 18 157/75 H 93 04/22/23 14:28 82 18 176/78 H 91 04/22/23 13:43 04/22/23 13:42 78 18 182/74 H 94 04/22/23 11:17 92 04/22/23 11:17 79 22 164/78 H 92 04/22/23 10:30 84 23 94 04/22/23 10:19 93 04/22/23 09:12 194/80 H 04/22/23 09:12 87 22 94 04/22/23 09:00 81 15 97 04/22/23 08:43 69 04/22/23 08:30 71 20 97 04/22/23 08:00 71 18 90 04/22/23 07:49 178/74 H 04/22/23 07:49 82 19 91 04/22/23 07:47 85 18 91 04/22/23 07:01 04/22/23 07:01 97.9 F 76 16 169/70 H 93 Pulse Ox O2 Del Method O2 Del Method 04/22/23 18:24 Room Air 04/22/23 16:52 Room Air 04/22/23 16:14 Room Air 04/22/23 14:28 Room Air 04/22/23 13:43 93 Room Air 04/22/23 13:42 Room Air 04/22/23 11:17 Room Air 04/22/23 11:17 Room Air 04/22/23 10:30 04/22/23 10:19 04/22/23 09:12 04/22/23 09:12 04/22/23 09:00 04/22/23 08:43 04/22/23 08:30 04/22/23 08:00 04/22/23 07:49 04/22/23 07:49 04/22/23 07:47 04/22/23 07:01 Room Air 04/22/23 07:01 Room Air Code Status & VTE Plan VTE Prophylaxis Plan VTE Prophylaxis will be ordered: Yes PG Care Time/CCT Total # of Minutes Spent Total Time Spent with Patient: Total time spent is greater than 50% in coordination of care (as documented) at patient's floor/unit and/or counseling patient: Coding Level of Care Code 61904 INT INP/OBS CARE 3/75MIN Diagnoses CHF (congestive heart failure) I50.9 Heart failure chronicity: acute Heart failure type: unspecified CKD (chronic kidney disease) N18.9 Type 2 diabetes mellitus with stage 3b chronic kidney disease E11.22; N18.32 Hypertension I10 Paroxysmal atrial fibrillation I48.0 DVT prophylaxis Z29.9 Discharge planning issues Z02.9 (1) CHF (congestive heart failure) Heart failure chronicity: acute Heart failure type: unspecified Qualified Code(s): I50.9 - Heart failure, unspecified
[2023-04-22] MEDS ORDERED: GLUCAGON FOR INJ 1 MG VIAL IM PRN (19:00)
[2023-04-22] MEDS ORDERED: CARBOHYDRATES FOR HYPOGLYCEMIA PO PRN (19:00)
[2023-04-22] MEDS ORDERED: GLUCOSE 10 TAB/TUBE PO PRN (19:00)
[2023-04-22] MEDS ORDERED: DEXTROSE 50% 50 ML SYRINGE IV PRN (19:00)
[2023-04-22] MEDS ORDERED: GLUCOSE 40% GEL 15 GM TUBE PO PRN (19:00)
[2023-04-22] MEDS: ATORVASTATIN 40 MG TAB PO SCH (20:50)
[2023-04-22] MEDS: APIXABAN 2.5 MG TAB PO SCH (20:50)
[2023-04-22] MEDS: TAMSULOSIN HCL 0.4 MG CAP PO SCH (20:51)
[2023-04-22] MEDS: METOPROLOL TARTRATE 50 MG TAB PO SCH (20:51)
[2023-04-22] MEDS: CHOLECALCIFEROL 1,000 UNITS 25 MCG TAB PO SCH (20:53)
[2023-04-22] MEDS ORDERED: LANTUS PER UNIT CHARGE SQ SCH (21:00)
[2023-04-22] MEDS ORDERED: MELATONIN 3 MG TAB PO PRN (21:38)
[2023-04-22] MEDS: INSULIN ASPART PER UNIT CHARGE SC SCH (21:45)
[2023-04-22] MEDS: LANTUS PER UNIT CHARGE SQ SCH (21:53)
[2023-04-23] MEDS: HYDROCODONE/ACETAMOPHEN 5/325MG TAB PO PRN ×4 (01:19→22:06)
[2023-04-23 07:23] LABS: Basophils # (auto) 0.04 K/uL (0.00-0.20); Basophils % (auto) 0.6 %; Eosinophils # (auto) 0.28 K/uL (0.00-0.50); Eosinophils % (auto) 4.5 %; Hematocrit (blood only) 47.6 % (42.0-52.0); Hemoglobin 15.8 g/dl (14.0-18.0); Immature Granulocytes # (auto) 0.01 K/uL (0.01-0.20); Immature Granulocytes % (auto) 0.2 %; Lymphocytes # (auto) 1.03 K/uL (1.20-3.40); Lymphocytes % (auto) 16.6 %; Mean Corpuscular Hemoglobin 32.4 pg (25.0-34.0); Mean Corpuscular Hgb Conc 33.2 g/dL (32.0-36.0); Mean Corpuscular Volume 97.7 fL (80.0-100.0); Monocytes # (auto) 0.77 K/uL (0.11-0.59); Monocytes % (auto) 12.4 %; Neutrophils # (auto) 4.06 K/uL (1.40-6.50); Neutrophils % (auto) 65.7 %; Platelet Count 150 K/uL (130-400); RDW Coefficient of Variation 16.3 % (11.5-14.5); RDW Standard Deviation 58.7 fL (36.4-46.3); Red Blood Count 4.87 M/uL (4.70-6.10); White Blood Count 6.19 K/ul (4.8-10.8)
[2023-04-23 08:00] LABS: Calcium 8.9 mg/dl (8.6-10.3); Potassium 3.7 mmol/L (3.5-5.1)
[2023-04-23 08:01] LABS: Troponin I High Sensitivity 63.6 pg/ml (0-20)
[2023-04-23 08:05] LABS: BUN Creatinine Ratio 20.9 (10-20); Creatinine Clr Calc Pharmacy 44.1 ml/min; Est GFR (African American) 39.2 ml/min; Est GFR (Non-African American) 33.8 ml/min
[2023-04-23] MEDS: APIXABAN 2.5 MG TAB PO SCH ×2 (08:16→20:48)
[2023-04-23] MEDS: FINASTERIDE 5 MG TAB PO SCH (08:17)
[2023-04-23] MEDS: FUROSEMIDE 40 MG/4 ML VIAL IV SCH ×2 (08:17→16:29)
[2023-04-23] MEDS: CEROVITE ADV FORMULA TAB PO SCH (08:18)
[2023-04-23] MEDS: METOPROLOL TARTRATE 50 MG TAB PO SCH (08:18)
[2023-04-23] MEDS: PANTOprazole 40 MG TAB PO SCH (08:18)
[2023-04-23] MEDS: VITAMIN B COMPLEX TAB PO SCH (08:19)
[2023-04-23] MEDS: VIBEGRON 75 MG TAB PO SCH (08:19)
[2023-04-23] MEDS: CHOLECALCIFEROL 1,000 UNITS 25 MCG TAB PO SCH ×2 (08:19→20:49)
[2023-04-23] MEDS: INSULIN ASPART PER UNIT CHARGE SC SCH ×4 (08:31→20:51)
[2023-04-23] MEDS ORDERED: FAMOTIDINE 20 MG TAB PO SCH (09:00)
[2023-04-23] MEDS: METOPROLOL TARTRATE 25 MG TAB PO SCH ×2 (10:26→20:50)
[2023-04-23] MEDS: DICLOFENAC SOD 1% GEL 100 GM TUBE EXT SCH ×4 (10:27→20:51)
--- NOTE | 2023-04-23 15:11 | Hospitalist Progress Note ---
Date of Service April 23, 2023 Assessment & Plan (1) CHF (congestive heart failure): Plan: appears that his dyspnea is most likely pulmonary edema due to diastolic CHF and CKD probably exacerbated by sodium intake continue diuresis consider adjusting AMARI inhibitor/today will increase beta-jackelin ongoing education on sodium restriction and how to track with the delicate balance between diastolic dysfunction and CKD, discussed we will probably need to have his Lasix more dynamic at home (with daily weights, symptom logs, close/serial BMP checks, etc.) elevated troponin appears to be mild demand ischemia due to above - hasn't peaked but also echo without WMA and overall elevation of troponin mild. will trend to peak for completeness (2) CKD (chronic kidney disease): Plan: see above, CKD 3, slight bump in creatinine probably due to poor forward flow from acute exacerbation - improved w diuresis (3) Type 2 diabetes mellitus with stage 3b chronic kidney disease: Plan: fingersticks, home meds, supplemental insulin if needed - sugars have been acceptable (4) Hypertension: Plan: follow-up with diuresis, holding lisinopril for now due to slight bump in creatinine and need for aggressive diuresis -numbers reasonable given the situation (5) Paroxysmal atrial fibrillation: Plan: rate controlled, anticoagulated with Eliquis (6) DVT prophylaxis: Plan: anticoagulated with Eliquis (7) Discharge planning issues: Plan: would like to diurese further to get him closer to dry to make dynamic dosing/tracking easier for him as outpt - hopefully home tomorrow though Admission and Anticipated Discharge Date Admission Date: April 22, 2023 Subjective feeling better far less orthopnea and PND. still voiding a good deal no new symptoms chronic back pain amenable to the idea he might be taking in more sodium than he was aware of Review of Systems Review of Systems: All systems reviewed & are unremarkable except as noted in HPI & below Physical Exam Physical Exam: gen aaox3 pleasant nad heent nc at mmm lungs faint scattered rales fairly similar maybe even more pronounced than yseterday but also far better air entry /far better respiratory effort than yesterday. ongoing LE edema. no focal neuro deficits Results & Data Results & Data Vital Signs (Past 12 Hours) Vital Signs Temp Pulse Pulse Resp BP Pulse Ox O2 Del Method 04/23/23 12:00 98.4 F 88 18 155/74 H 97 Room Air 04/23/23 08:00 97.7 F 71 16 174/80 H 95 Room Air 04/23/23 07:33 62 PG Care Time/CCT Total # of Minutes Spent Total Time Spent with Patient: Total time spent is greater than 50% in coordination of care (as documented) at patient's floor/unit and/or counseling patient: Coding Level of Care Code 77028 SUB INP/OBS CARE 3/50MIN Diagnoses CHF (congestive heart failure) I50.9 Heart failure chronicity: acute Heart failure type: unspecified CKD (chronic kidney disease) N18.9 Type 2 diabetes mellitus with stage 3b chronic kidney disease E11.22; N18.32 Hypertension I10 Paroxysmal atrial fibrillation I48.0 DVT prophylaxis Z29.9 Discharge planning issues Z02.9 (1) CHF (congestive heart failure) Heart failure chronicity: acute Heart failure type: unspecified Qualified Code(s): I50.9 - Heart failure, unspecified
--- NOTE | 2023-04-23 15:11 | Billing Data ---
Date of Service April 23, 2023 Coding Level of Care Code 30742 SUB INP/OBS CARE
[2023-04-23] MEDS: ATORVASTATIN 40 MG TAB PO SCH (20:49)
[2023-04-23] MEDS: TAMSULOSIN HCL 0.4 MG CAP PO SCH (20:50)
[2023-04-23] MEDS: LANTUS PER UNIT CHARGE SQ SCH (20:52)
[2023-04-24 07:07] LABS: BUN Creatinine Ratio 21.1 (10-20); Calcium 9.6 mg/dl (8.6-10.3); Creatinine Clr Calc Pharmacy 45.4 ml/min; Est GFR (African American) 41.1 ml/min; Est GFR (Non-African American) 35.5 ml/min; Potassium 4.5 mmol/L (3.5-5.1)
--- NOTE | 2023-04-24 07:43 | Hospitalist Progress Note ---
Date of Service April 24, 2023 Assessment & Plan (1) CHF (congestive heart failure): Plan: appears that his dyspnea is most likely pulmonary edema due to diastolic CHF and CKD probably exacerbated by sodium intake continue diuresis consider adjusting AMARI inhibitor/today will increase beta-jackelin ongoing education on sodium restriction and how to track with the delicate balance between diastolic dysfunction and CKD, discussed we will probably need to have his Lasix more dynamic at home (with daily weights, symptom logs, close/serial BMP checks, etc.) elevated troponin appears to be mild demand ischemia due to above - hasn't peaked but also echo without WMA and overall elevation of troponin mild. will trend to peak for completeness (2) CKD (chronic kidney disease): Plan: see above, CKD 3, slight bump in creatinine probably due to poor forward flow from acute exacerbation - improved w diuresis (3) Type 2 diabetes mellitus with stage 3b chronic kidney disease: Plan: fingersticks, home meds, supplemental insulin if needed - sugars have been acceptable (4) Hypertension: Plan: follow-up with diuresis, holding lisinopril for now due to slight bump in creatinine and need for aggressive diuresis -numbers reasonable given the situa tion (5) Paroxysmal atrial fibrillation: Plan: rate controlled, anticoagulated with Eliquis (6) DVT prophylaxis: Plan: anticoagulated with Eliquis (7) Discharge planning issues: Plan: would like to diurese further to get him closer to dry to make dynamic dosing/tracking easier for him as outpt - hopefully home tomorrow though Admission and Anticipated Discharge Date Admission Date: April 22, 2023 Results & Data Results & Data Vital Signs (Past 12 Hours) Vital Signs Temp Pulse Pulse Resp BP Pulse Ox O2 Del Method 04/24/23 03:24 36.4 C L 59 L 20 161/64 H 94 Room Air 04/24/23 00:59 59 L 04/23/23 22:47 36.3 C L 65 20 166/67 H 91 Room Air 04/23/23 22:45 Room Air 04/23/23 19:56 36.6 C 80 20 172/77 H 95 Room Air (1) CHF (congestive heart failure) Heart failure chronicity: acute Heart failure type: unspecified Qualified Code(s): I50.9 - Heart failure, unspecified
[2023-04-24] MEDS: APIXABAN 2.5 MG TAB PO SCH (08:30)
[2023-04-24] MEDS: PANTOprazole 40 MG TAB PO SCH (08:30)
[2023-04-24] MEDS: CEROVITE ADV FORMULA TAB PO SCH (08:30)
[2023-04-24] MEDS: METOPROLOL TARTRATE 25 MG TAB PO SCH (08:30)
[2023-04-24] MEDS: VITAMIN B COMPLEX TAB PO SCH (08:30)
[2023-04-24] MEDS: CHOLECALCIFEROL 1,000 UNITS 25 MCG TAB PO SCH (08:30)
[2023-04-24] MEDS: FINASTERIDE 5 MG TAB PO SCH (08:31)
[2023-04-24] MEDS: DICLOFENAC SOD 1% GEL 100 GM TUBE EXT SCH (08:31)
[2023-04-24] MEDS: VIBEGRON 75 MG TAB PO SCH (08:31)
[2023-04-24] MEDS: INSULIN ASPART PER UNIT CHARGE SC SCH ×2 (08:34→12:14)
[2023-04-24] MEDS: FUROSEMIDE 40 MG/4 ML VIAL IV SCH (09:15)
--- NOTE | 2023-04-24 11:11 | Discharge Summary ---
Date of Service April 24, 2023 Admission HPI Per Admitting Provider See above Admission Exam Per Admitting Provider n general he is awake alert oriented x3 pleasant no distress. HEENT normocephalic atraumatic mucous membranes moist. Cardio is regular no rubs murmurs or gallops. Lungs show faint basilar and midlung scattered rales, although this is admittedly after he has had 80 of Lasix and a rather si gnificant urine output. No rhonchi no wheezes no accessory muscle use. Extremities show bilateral lower extremity edema. Neuro shows cranial nerves II through XII be grossly intact gross motor and sensory intact. Skin without rashes pallor or icterus. Mental status shows good recent and remote recall normal mood and affect good judgment and insight. Normal gait Principal Diagnosis fluid overload Discharge Exam Gen: well appearing male in NAD HEENT: AT NC MMM CV: RRR no m/r/g clinically well perfused Resp: CTAB no increased work of breathing, good air movement Abd: non-distended MSK: no obvious deformities Skin: no rashes or bruising Neuro: alert and oriented Psych: appropriate mood and affect Discharge Data Allergies Allergy/AdvReac Type Severity Reaction Status Date / Time nickel Allergy Intermediate contact Verified 04/22/23 11:43 dermatitis adhesive Allergy Mild SKIN Verified 04/22/23 11:43 IRRITATION,SWELLING codeine Allergy Mild ITCHING Verified 04/22/23 11:43 Penicillins Allergy Mild ITCHING Verified 04/22/23 11:43 ropivacaine Allergy Mild PRURITIS Verified 04/22/23 11:43 REACTION WITH KNEE INJECTION shrimp Allergy Mild ITCHY HANDS Verified 04/22/23 11:43 Consultations 04/22/23 09:16 ED Decision to Admit Stat Ordered Studies Chest X-Ray 04/22/23 07:40 XR chest 1V portable HISTORY: 83 years-old Male Chest pain, nonspecific acute chest pain COMPARISON: 11/15/2022 TECHNIQUE: AP view of the chest FINDINGS: Cardiac silhouette is enlarged. Median sternotomy wires are noted. No pneumothorax, pleural effusion or overt pulmonary edema. Pulmonary vascular congestion. Mild bibasilar atelectasis versus scarring. Left shoulder arthroplasty. Degenerative changes of the spine and right shoulder. IMPRESSION: Cardiomegaly with pulmonary vascular congestion. Chest CT 04/22/23 08:48 FINDINGS: Thyroid: Enlarged and heterogeneous. Thoracic aorta: There is atherosclerotic calcification of the thoracic aorta, which is normal in caliber and demonstrates standard 3-vessel arch anatomy. Heart: The patient is status post midline sternotomy. The heart is enlarged and without pericardial effusion. The coronary arteries are densely calcified. The main pulmonary arteries are dilated suggesting pulmonary artery hypertension. Lungs and pleural spaces: Emphysematous change is noted. There are trace pleural effusions. No airspace consolidation is seen typical for pneumonia. The trachea and central airways are clear. Foci of parenchymal scarring are seen throughout both lungs, greatest at the lung bases. There are scattered calcified granulomas. Moderate lobular septal thickening is observed. Mediastinum: Subcentimeter mediastinal lymph nodes are not pathologically enlarged by size criteria. Angella: Not well assessed without IV contrast. Axillae: There is no axillary lymphadenopathy. Upper abdomen: Residual enteric contrast is noted in the colon. A 2.3 cm cyst is seen in the upper pole of the left kidney. Skeletal structures: The skeletal structures are osteopenic. No lytic or blastic bony lesions are seen. A left shoulder arthroplasty is in place. Advanced arthritic changes seen in the right shoulder. Fusion hardware is seen in the upper lumbar spine. Spondylotic changes seen throughout the thoracic spine. IMPRESSION: 1. Marked cardiomegaly with mild intralobular septal thickening. This could be seen with acute versus chronic congestive change. Correlate clinically. 2. Trace pleural effusions. 3. There is no airspace consolidation typical for pneumonia. 4. Mild emphysema. 5. Additional findings as above. Hospital Course (1) CHF (congestive heart failure): #Dyspnea Likely multifactorial in nature as patient with diastolic dysfunction and CKD. Likely CHF acutely exacerbated in the setting of elevated sodium intake with pulmonary edema. Significant improvement with diuresis. Elevated troponin has peaked - appears to be mild demand ischemia. ECHO without wall motion abnormalities. Ongoing education on sodium restriction and how to track. Would recommend dynamic dosing of Lasix as fluid status is delicate between diastolic dysfunction and CKD. Adjust dosing based on daily weights, symptom logs, close/serial BMP checks. #Hypertension Increased beta-jackelin to 75 mg BID. Lisinopril held in the setting of MARKIE, resumed on discharge. Improving at time of discharge with Cr at 1.75. Adjust AMARI at PCP's discretion. Will need BP follow up and monitoring of BMP. #Paroxysmal a. fib Rate controlled, anticoagulated with Eliquis #T2DM with CKD3b Fingersticks, home meds, supplemental insulin if needed - sugars have been acceptable. Slight bump in creatinine probably due to poor forward flow from acute exacerbation. Improving. (2) CKD (chronic kidney disease): (3) Type 2 diabetes mellitus with stage 3b chronic kidney disease: (4) Hypertension: (5) Paroxysmal atrial fibrillation: (6) DVT prophylaxis: (7) Discharge planning issues: Total Time Total Time Spent Total Time Spent (In Minutes): <30 Discharge Plan Discharge Items Patient Disposition: Home - Self-Care Reason For Visit: CHF EXAC Discharge Diagnosis: CHF exacerbation Condition on Discharge: Fair Activity: Resume your previous activity Non-emergency contact: Primary Care Provider Call non-emergency contact if: your symptoms worsen Follow-up/Referrals: Tylor Almodovar MD [Primary Care Provider] - 04/28/23 9:00 am (Follow up scheduled on 04/28/23 @ 9am) Raimundo Clemens DO [Physician] - Diet: Heart Healthy Addtl Attending Provider Instructions: Congestive Heart Failure: Discharge Instructions Congestive Heart Failure essentially means your heart is able to have a "traffic jam" of fluid that backs up into your lungs. Fluid in lungs then blocks up breathing space making you feel short of breath. In the hospital, our job is to get the fluid off so that you are able to breathe better, and then get you back on track with medication and lifestyle adjustments to keep the traffic jam from happening again. Salt (Sodium) The vast majority of people admitted to the hospital with fluid back up into the lungs get there because of too much salt in their diet. The way our kidneys work: when you take a small amount of sodium, your kidneys hold onto a small amount of water. When you take a large amount of sodium, your kidneys hold onto a large amount of water. When this happens, your blood vessels get flooded, your heart gets overfilled, and the fluid backs up into your lungs. Most people know to avoid the salt shaker, but sodium is in almost anything prepackaged/prepared, as a preservative or as a flavoring agent. Most of the people we take care of who are here with congestive heart failure caused by too much sodium do not use a salt shaker at all. Get into the habit of looking at food labels, so you can see how much sodium is in the foods you eat. The most important number to look at is how much sodium is in each serving. But also notice the size of a serving. Food companies will frequently make a serving size so tiny that it does not look like there is much sodium per serving, but a normal person might eat 3 or 4 servings of the food and take in a lot more sodium than they realized. Keep a "budget" of how much sodium you take in in each day. Most people stay out of trouble and stay out of the hospital as long as they stay "under budget". The majority of congestive heart failure patients do well if they take less than 2000 mg of sodium a day. Because our kidneys retain water based on how much sodium they are seeing in any given moment, it is also important to stay at less than about 500 mg in any given meal. This is because even if you stayed at less than 2000 mg of sodium, but ate it all at once, your kidneys would retain fluid at a rate as though you are taking in much more sodium than you actually are. Occasionally your doctor may specifically recommend restricting even further (such as less than 1500mg per day) so if you have been told to be even stricter with sodium, please follow that advice. -Following How You Are Doing (Wet Versus Dry) Because managing congestive heart failure is an ongoing process, it is very important to learn how to follow your signs and symptoms and track how you are doing at home. This will allow you to catch problems before they become a big deal. In general, as your health care team, we look at managing congestive heart failure chronically as a balance of being "wet" (flooded with fluid) versus being "dry" (dehydrated from treatment). Wet - signs of fluid retention that would warrant further evaluation: Check your weight daily. If your weight goes up by more than 2 pounds in 1 day, it is almost certainly fluid related. This should warrant further thought, and/or a call to your doctor Follow your breathingmost of the time, early on when fluid backs up into your lungs, you will first start to notice shortness of breath when walking, or when lying flat. If you notice either of these, this should warrant further thought, and/or a call to your doctor If you notice both an increase in weight and worsening breathing, that definitely warrants getting seen as soon as possible "Dry"while the goal of managing the disease is to keep you from getting "wet, the medications can sometimes cause a degree of dehydration. Most people with congestive heart failure need frequent lab work (basic metabolic panel). Generally when there has been a change in diuretic dosing (a change in the water pill) or any other major changes, lab work should be followed closely and more frequently afterwards. This is because lab work will frequently show early signs of dehydration before you start to feel bad. Frequent symptoms of being dehydrated include: feeling weak and lightheaded, having lower blood pressures, making less urine than usual, or having a very dry mouth. If you notice any of these signs/symptoms, and you are not due for lab work, it would be quite reasonable to call your doctor to see if lab work or a visit could be arranged. Heart Failure Management Checklist: Limit Salt (Sodium) Intake to 2000mg (2g) per day and 500mg (0.5g) per meal Check weight daily (in same clothes, without shoes) every morning Use the provided chart to enter your weight and salt intake for the day Are you too wet? If you gained 2lb or more - make sure to take your water pill If your breathing is not good (you are more short of breath than usual) call your doctor regardless of weight change If you gained 2lb or more and you are short of breath, see your doctor or come to the emergency room Are you too dry? If you feel weak or lightheaded, have lower blood pressures, make less urine than usual, or have a very dry mouth. Call your doctor Pending Studies at Discharge: No Stand-Alone Forms: My [facility], Smoking Cessation Medications and DC Order Prescriptions: New metoprolol tartrate 25 mg Tablet 75 mg PO BID Qty: 180 0RF Continued (DME) [employer] Luer Lock Syr-needle 3 mL 21 gauge x 1" syringe See Rx Instructions .Route Qty: 100 1RF Rx Instructions: Use to inject testosterone every 14 days metformin 500 mg tablet 500 mg PO BID Qty: 180 3RF (DME) pen needle, diabetic [BD Ultra-Fine Mini Pen Needle] 31 gauge x 3/16" needle See Rx Instructions .Route Qty: 100 3RF Rx Instructions: use 1 daily (DME) OneTouch Verio test strips Strip See Rx Instructions .MEDSUPPLY Qty: 300 3RF Rx Instructions: Use to test BG TID. testosterone cypionate 200 mg/mL oil 200 mg IM Q14D Qty: 10 5RF diazepam 5 mg tablet 5 mg PO TID PRN (Reason: anxiety) Qty: 30 0RF betamethasone dipropionate 0.05 % ointment 1 applic topical BID PRN (Reason: skin irritation) Qty: 45 11RF Rx Instructions: Apply to areas of the hand twice daily for up to 2 weeks as needed for flaring. dutasteride 0.5 mg capsule 0.5 mg PO QAM Qty: 90 3RF tamsulosin 0.4 mg capsule 0.4 mg PO QPM Qty: 90 3RF cholecalciferol (vitamin D3) 50 mcg (2,000 unit) capsule 100 mcg PO BID insulin glargine [Lantus Solostar U-100 Insulin] 100 unit/mL (3 mL) insulin pen 17 unit subcut QPM hydrocodone-acetaminophen 5-325 mg tablet 1 tab PO Q6H PRN (Reason: pain) Qty: 100 0RF (DME) BD Eclipse 21 gauge x 1" needle See Rx Instructions .Route Qty: 100 1RF Rx Instructions: Use to inject Testosterone every 14 days diclofenac sodium 75 mg tablet,delayed release (DR/EC) 75 mg PO BID lisinopril 40 mg tablet 40 mg PO DAILY Qty: 30 0RF vitamin B complex Tablet 1 tab PO QAM Centrum Silver 400-250 mcg Tablet,Chewable 1 tab PO QAM furosemide 80 mg tablet 40 mg PO QAM Eliquis 5 mg tablet 5 mg PO BID atorvastatin 80 mg tablet 80 mg PO HS Rx Instructions: TAKE 1 TABLET AT BEDTIME pantoprazole 40 mg tablet,delayed release (DR/EC) 40 mg PO QAM Discontinued metoprolol tartrate 50 mg tablet 50 mg PO BID Rx Instructions: TAKE 1 TABLET TWICE A DAY Discharge Orders: Discharge Order- CHF (Routine); Ordered 04/24/23 Ordered By: Mireya Spaulding/Other Patient Handouts: Managing Type 2 Diabetes, Special Foot Care for Diabetes Admission Data Admit Date/Time: 04/22/23 09:38 Attending Provider: Julio Hart Admit Provider: Julio Hart Primary Care Provider: Tylor Almodovar Other Providers: Julio Hart Other Interventions: Discharge Summary Assessment (RN) Last Done: 04/24/23 12:18 Supervising Physician Co-Signing Physician Notes I personally examined the patient and verified all martel points of history and exam, discussed case, and agree with decision making with Dr Junior Feeling better breathing better would like to go home. Vitals noted, in general he is awake and alert pleasant no distress. HEENT normocephalic atraumatic mucous membranes moist. Breathing unlabored no accessory muscle use good effort. Skin shows no rashes no pallor or icterus. Lungs do show faint basilar rales but much better than before. Labs and diagnostics noted. Pulmonary edemainterplay of chronic diastolic CHF (making this acute on chronic diastolic CHF) with CKD stage III and probably sodium intake really creating a pulmonary edema picture more than that of an ominous CHF picture (i.e. I think it was more of a "perfect storm of comorbidities and lifestyle factors" than a dominant organ system dysfunction)improved nicely. Safe for home. Additional diuresis for the next 3 days at home. Weigh himself on Friday morning to establish new dry weight. Discussed extensively sodium restriction and tracking wet versus dry, discussed extensively close follow-up. He expresses good understanding of all of the above Resident Activity Tracking Resident Involvement: Resident Care Provided Care Provided: Adult Hospital Medicine
--- NOTE | 2023-04-24 17:46 | Billing Data ---
Date of Service April 24, 2023 Coding Level of Care Code 57202 IN/OBS DISCH 30 MIN/LESS
== END 2023-04-24 12:55 | disposition home or self-care (01) | DRG 291 ==
LOC: ED 07:00 → EDINP 09:38 → 2S 16:00

== ENCOUNTER 2023-05-05 09:01 | Inpatient (IN) ==
--- NOTE | 2023-05-05 09:23 | Emergency Department Note ---
Impression & Plan Acute exacerbation of CHF (congestive heart failure), Shortness of breath, Elevated troponin, Non-ST elevation MS (NSTEMI), Acute kidney injury superimposed on chronic kidney disease, Elevated brain natriuretic peptide (BNP) level ED Provider Note HISTORY OF PRESENT ILLNESS: Patient is an 83-year-old male presenting with 3 to 4 days of bilateral lower extremity swelling and shortness of breath. Patient reports he has history of CHF and is currently on 40 mg of Lasix at home. He was recently admitted to the hospital for CHF exacerbation. He states that his weight has not changed in the last 3 to 4 days, but his lower extremity edema has gotten significantly worse. He reports shortness of breath both at rest and with exertion. Denies any fevers or cough. Denies any chest pain. He is on Eliquis. ROS: as above PHYSICAL EXAM: Constitutional: Patient appears in no acute distress. HENT: Head: Normocephalic and atraumatic. Eyes: EOMI, PERRL Mouth/Throat: Mucous membranes moist. Neck: Trachea midline. Neck supple. Cardiovascular: RRR, No murmurs, rubs or gallops. Intact distal pulses. Pulmonary/Chest: No respiratory distress. Breath sounds clear and equal bilaterally. No wheezes or rales. Abdominal: Abdomen soft, no tenderness, rebound or guarding. Musculoskeletal: No tenderness or deformity noted. +3 pitting edema of bilateral lower extremities extending to knees. Skin: Warm and dry. No rash, erythema, pallor or cyanosis Psychiatric: Appropriate mood and affect for situation. Neurological: Alert and keenly responsive. CN II-XII grossly intact, moving all extremities equally and fully. MDM: - Vitals signs showed hypertension. - History obtained via patient. Patient presents with lower extremity swelling and shortness of breath. Patient reports he has had progressively worsening swelling of his lower extremities and progressively worsening shortness of breath in the last 3 to 4 days. He states he has been taking 40 mg of Lasix at home with little relief in his symptoms. - Chronic conditions affecting care: paroxysmal Afib; HTN; HLD; CAD (s/p CABG); CHF; CKD; DM-2 - Differential diagnoses include, but are not limited to: Congestive heart failure; acute coronary syndrome; COPD/asthma exacerbation; pulmonary edema; pulmonary embolism; pneumonia; pneumothorax; viral syndrome - Order placed for continuous cardiac monitoring. At this time, monitor showed rate of 60 bpm with normal sinus rhythm, per my interpretation. - External medical records reviewed. Discharge summary dated 04/24/2023 was reviewed. Patient was admitted for CHF exacerbation. - EKG reviewed by myself showed normal sinus rhythm with RBBB. Rate 62 bpm. QTc 497. No acute ischemic changes - Laboratory workup interpreted by myself showed normal WBC; stable electrolytes; MARKIE on CKD (Cr 2.22 - baseline 1.75); elevated BNP (925); elevated troponin (46.6) - CXR showed evidence of pulmonary edema, per my interpretation - VBG showed respiratory acidosis (pH 7.33; PCO2 63) - Repeat troponin elevated at 54.2 - Discussion was had with child care centre director. about patient's case and need for admission - Hospitalist consulted for admission - [facility] ASSESSMENT AND PLAN: Diagnosis: CHF exacerbation; shortness of breath; NSTEMI; MARKIE on CKD; elevated BNP; elevated troponin Plan: admit Past Med/Surg History Medical History Degenerative disc disease Diabetes mellitus, type 2 Peripheral neuropathy Obesity Cardiomyopathy CKD (chronic kidney disease) Valvular disease Hiatal hernia CHF (congestive heart failure) CAD (coronary artery disease) GERD (gastroesophageal reflux disease) Osteoarthritis BPH (benign prostatic hyperplasia) Personal history of kidney stones Hearing deficit Hyperlipidemia Hypertension Atrial fibrillation Sleep apnea Surgical History Fusion of lumbar spine History of surgery History of cardiac cath Hx of decompression of ulnar nerve History of carpal tunnel release History of total hip arthroplasty History of total knee replacement History of colonoscopy History of cholecystectomy History of appendectomy History of tooth extraction History of nasal septoplasty History of cataract surgery Hx of heart bypass surgery Family History Unknown Skin cancer Lung cancer Coronary arteriosclerosis Grandmother (Paternal) Family history of diabetes mellitus Social History Smoking Status: Former smoker Age Started Using Tobacco: 15; Age Quit Using Tobacco: 56; packs per day: 1.5; Second Hand Exposure: Yes (IN THE PAST); Do You Dip or Chew Tobacco: No; Hx Alcohol Use: Yes Alcohol type: wine and hard liquor Hx Substance Use: No Preferred Language: Setswana Communication Ability: Effective Visual Impairment: No Limitations Document Management Analyst Required: No Beliefs That Will Affect Care: None marital status: Current Living Situation: Spouse Feels Safe at Home: Yes Assistive Devices: Cane and Walker Allergies Allergies Allergy/AdvReac Type Severity Reaction Status Date / Time nickel Allergy Intermediate contact Verified 05/05/23 11:41 dermatitis adhesive Allergy Mild SKIN Verified 05/05/23 11:41 IRRITATION,SWELLING codeine Allergy Mild ITCHING Verified 05/05/23 11:41 Penicillins Allergy Mild ITCHING Verified 05/05/23 11:41 ropivacaine Allergy Mild PRURITIS Verified 05/05/23 11:41 REACTION WITH KNEE INJECTION shrimp Allergy Mild ITCHY HANDS Verified 05/05/23 11:41 Home Meds Home Medications Medication Instructions Recorded Confirmed multivit with min-folic 1 tab PO QAM 11/03/19 05/05/23 acid-lutein 400 mcg-250 mcg chewable tablet (Centrum Silver) vitamin B complex 1 tab PO QAM 11/03/19 05/05/23 cholecalciferol (vitamin D3) 50 100 mcg PO BID 07/10/21 05/05/23 mcg (2,000 unit) capsule insulin glargine 100 unit/mL (3 17 unit subcut QPM 10/29/22 05/05/23 mL) subcutaneous pen (Lantus Solostar U-100 Insulin) diclofenac sodium 75 mg 75 mg PO BID 01/29/23 05/05/23 tablet,delayed release apixaban 5 mg tablet (Eliquis) 5 mg PO BID 04/22/23 05/05/23 atorvastatin 80 mg tablet 80 mg PO HS 04/22/23 05/05/23 furosemide 80 mg tablet 40 mg PO QAM 04/22/23 05/05/23 pantoprazole 40 mg tablet,delayed 40 mg PO QAM 04/22/23 05/05/23 release Previous Rx's Medication Instructions Recorded safety needles 21 gauge x 1" (BD #100 ea 02/26/21 Eclipse) syringe with needle 3 mL 21 gauge #100 ea 09/14/21 x 1" (Carepoint Luer Lock Syringe with needle) metformin 500 mg tablet 500 mg PO BID #180 tabs 05/13/22 BD Ultra-Fine Mini Pen Needle 31 #100 ea 06/08/22 gauge x 3/16" (pen needle, diabetic) blood sugar diagnostic (OneTouch #300 ea 09/10/22 Verio test strips) testosterone cypionate 200 mg/mL 200 mg IM Q14D #10 mL 09/12/22 intramuscular oil diazepam 5 mg tablet 5 mg PO TID PRN anxiety #30 tabs 11/07/22 betamethasone dipropionate 0.05 % 1 applic topical BID PRN skin 11/29/22 topical ointment irritation #45 grams lisinopril 40 mg tablet 40 mg PO DAILY #30 tabs 01/29/23 dutasteride 0.5 mg capsule 0.5 mg PO QAM #90 caps 02/19/23 hydrocodone 5 mg-acetaminophen 325 1 tab PO Q6H PRN pain #100 tabs 03/03/23 mg tablet tamsulosin 0.4 mg capsule 0.4 mg PO QPM #90 caps 04/15/23 metoprolol tartrate 25 mg tablet 75 mg (3 x 25 mg) PO BID #180 tabs 04/24/23 albuterol sulfate 90 mcg/actuation 2 puff inhalation .every 4 hours 04/28/23 aerosol inhaler PRN shortness of breath or wheezing #8.5 grams umeclidinium 62.5 mcg-vilanterol 1 inh inhalation Q24H #1 inhaler 04/28/23 25 mcg/actuation powdr for inhalation (Anoro Ellipta) Results & Data (ED) Vital Signs Vital Signs - 24 hr 05/05/23 09:06 05/05/23 09:32 05/05/23 09:32 Temperature 36.5 C Temperature Source Skin Pulse Rate 74 Pulse Rate [Apical] 58 L Pulse Rate from SpO2 Sensor Respiratory Rate 18 20 Respiratory Effort / Characteristics Non-Labored Respiratory Depth Normal Blood Pressure 178/75 H Blood Pressure [Right Arm] 147/71 H Blood Pressure Mean 109 Blood Pressure Mean [Right Arm] 96 Pulse Oximetry 95 92 90 Oxygen Delivery Method Room Air Room Air Room Air Sepsis Recent Fever Within 48 Hours No Sepsis New/Unexplained Change in Mental Status No Sepsis Action Taken by Nursing No Action Required 05/05/23 09:33 05/05/23 09:39 05/05/23 09:40 Temperature Temperature Source Pulse Rate 60 61 59 L Pulse Rate [Apical] Pulse Rate from SpO2 Sensor 60 59 L Respiratory Rate 19 20 Respiratory Effort / Characteristics Respiratory Depth Blood Pressure Blood Pressure [Right Arm] Blood Pressure Mean Blood Pressure Mean [Right Arm] Pulse Oximetry 91 95 Oxygen Delivery Method Sepsis Recent Fever Within 48 Hours Sepsis New/Unexplained Change in Mental Status Sepsis Action Taken by Nursing 05/05/23 09:50 05/05/23 10:00 05/05/23 10:10 Temperature Temperature Source Pulse Rate 57 L 56 L 58 L Pulse Rate [Apical] Pulse Rate from SpO2 Sensor 56 L 56 L 59 L Respiratory Rate 22 22 23 Respiratory Effort / Characteristics Respiratory Depth Blood Pressure Blood Pressure [Right Arm] Blood Pressure Mean Blood Pressure Mean [Right Arm] Pulse Oximetry 92 90 95 Oxygen Delivery Method Sepsis Recent Fever Within 48 Hours Sepsis New/Unexplained Change in Mental Status Sepsis Action Taken by Nursing 05/05/23 10:20 05/05/23 10:30 05/05/23 10:40 Temperature Temperature Source Pulse Rate 58 L 57 L 58 L Pulse Rate [Apical] Pulse Rate from SpO2 Sensor 58 L 57 L 58 L Respiratory Rate 22 19 15 Respiratory Effort / Characteristics Respiratory Depth Blood Pressure Blood Pressure [Right Arm] Blood Pressure Mean Blood Pressure Mean [Right Arm] Pulse Oximetry 95 92 94 Oxygen Delivery Method Sepsis Recent Fever Within 48 Hours Sepsis New/Unexplained Change in Mental Status Sepsis Action Taken by Nursing 05/05/23 10:48 05/05/23 10:49 05/05/23 10:49 Temperature Temperature Source Pulse Rate 56 L Pulse Rate [Apical] 59 L Pulse Rate from SpO2 Sensor 57 L Respiratory Rate 20 21 Respiratory Effort / Characteristics Non-Labored Respiratory Depth Normal Blood Pressure 154/67 H Blood Pressure [Right Arm] 154/67 H Blood Pressure Mean 112 Blood Pressure Mean [Right Arm] 96 Pulse Oximetry 95 95 Oxygen Delivery Method Room Air Sepsis Recent Fever Within 48 Hours Sepsis New/Unexplained Change in Mental Status Sepsis Action Taken by Nursing 05/05/23 10:50 05/05/23 11:00 05/05/23 11:00 Temperature Temperature Source Pulse Rate 58 L 59 L Pulse Rate [Apical] Pulse Rate from SpO2 Sensor 58 L 60 Respiratory Rate 21 16 Respiratory Effort / Characteristics Respiratory Depth Blood Pressure 143/60 H Blood Pressure [Right Arm] Blood Pressure Mean 80 Blood Pressure Mean [Right Arm] Pulse Oximetry 97 94 Oxygen Delivery Method Sepsis Recent Fever Within 48 Hours Sepsis New/Unexplained Change in Mental Status Sepsis Action Taken by Nursing 05/05/23 11:10 11/20/23 11:20 05/05/23 11:30 Temperature Temperature Source Pulse Rate 57 L 58 L 56 L Pulse Rate [Apical] Pulse Rate from SpO2 Sensor 57 L 57 L 57 L Respiratory Rate 14 21 13 Respiratory Effort / Characteristics Respiratory Depth Blood Pressure Blood Pressure [Right Arm] Blood Pressure Mean Blood Pressure Mean [Right Arm] Pulse Oximetry 94 96 94 Oxygen Delivery Method Sepsis Recent Fever Within 48 Hours Sepsis New/Unexplained Change in Mental Status Sepsis Action Taken by Nursing 05/05/23 11:30 05/05/23 11:40 Temperature Temperature Source Pulse Rate 60 Pulse Rate [Apical] Pulse Rate from SpO2 Sensor 60 Respiratory Rate 16 Respiratory Effort / Characteristics Respiratory Depth Blood Pressure 153/65 H Blood Pressure [Right Arm] Blood Pressure Mean 94 Blood Pressure Mean [Right Arm] Pulse Oximetry 95 Oxygen Delivery Method Sepsis Recent Fever Within 48 Hours Sepsis New/Unexplained Change in Mental Status Sepsis Action Taken by Nursing Laboratory Data 05/05/23 09:43 05/05/23 09:43 Lab Results 05/05/23 05/05/23 05/05/23 Range/Units 09:36 09:43 11:25 WBC 6.18 (4.8-10.8) K/ul RBC 5.19 (4.70-6.10) M/uL Hgb 16.8 (14.0-18.0) g/dl Hct 50.7 (42.0-52.0) % MCV 97.7 (80.0-100.0) fL MCH 32.4 (25.0-34.0) pg MCHC 33.1 (32.0-36.0) g/dL RDW Std Deviation 58.2 H (36.4-46.3) fL RDW Coeff of Anjelica 16.0 H (11.5-14.5) % Plt Count 188 (130-400) K/uL MPV 9.8 (9.4-12.4) fL Immature Gran % (Auto) 0.2 % Neut % (Auto) 65.8 % Lymph % (Auto) 14.4 % [place] % (Auto) 12.5 % Eos % (Auto) 6.3 % Baso % (Auto) 0.8 % Neut # (Auto) 4.07 (1.40-6.50) K/uL Lymph # (Auto) 0.89 L (1.20-3.40) K/uL [place]house # (Auto) 0.77 H (0.11-0.59) K/uL Eos # (Auto) 0.39 (0.00-0.50) K/uL Baso # (Auto) 0.05 (0.00-0.20) K/uL Immature Gran # (Auto) 0.01 (0.01-0.20) K/uL PT 12.2 H (9.0-12.0) Seconds INR 1.1 (0.9-1.1) VBG pH 7.33 L (7.36-7.41) VBG pCO2 63 H (38-50) mmHg VBG pO2 34 mmHg VBG HCO3 33 mmol/L VBG O2 Saturation < 60.0 % VBG Base Excess 5.3 mEq/L Sodium 139 (136-145) mmol/L Potassium 4.8 (3.5-5.1) mmol/L Chloride 100 (98-107) mmol/L Carbon Dioxide 33 H (21-32) mmol/L Anion Gap 6 (3-11) BUN 67 H (6-23) mg/dl Creatinine 2.22 H (0.6-1.4) mg/dl Est Cr Clr Drug Dosing 37.4 ml/min Est GFR ( Amer) 30.8 ml/min Est GFR (Non-Af Amer) 26.6 ml/min BUN/Creatinine Ratio 30.2 H (10-20) Glucose 136 H (70-99(Fasting)) mg/dl Calcium 10.4 H (8.6-10.3) mg/dl Magnesium 1.9 (1.7-2.4) mg/dl Total Bilirubin 1.4 H (0.2-1.0) mg/dl AST 24 (13-39) U/L ALT 24 (7-52) U/L Alkaline Phosphatase 64 (34-104) U/L Troponin I High Sens 46.6 H 54.2 H* (0-20) pg/ml B-Natriuretic Peptide 925 H (0-100) pg/ml Total Protein 6.6 (6.0-8.3) gm/dl Albumin 3.9 (3.4-5.0) gm/dl Globulin 2.7 (2.5-4.0) gm/dl Albumin/Globulin Ratio 1.4 (0.9-2) SARS-CoV-2 (PCR) NEGATIVE (Negative) Imaging Data Radiologist's Impression: Chest X-Ray 05/05/23 09:13 SINGLE VIEW CHEST CLINICAL HISTORY: Dyspnea FINDINGS: An AP, portable, upright chest radiograph is compared to chest x-ray and chest CT dated 04/22/2023. The heart is enlarged noting atherosclerotic calcification of the thoracic aorta. There is pulmonary vascular congestion. There is bibasilar scarring/atelectasis. No large pleural effusion or pneumothorax is seen. The skeletal structures are osteopenic. The bony thorax is grossly intact. A left shoulder arthroplasty is in place. Advanced arthritic change is seen in the right shoulder. IMPRESSION: Cardiomegaly with evidence of congestive failure. ACT 112: Negative or not required by law. Electronically signed by: Chun Casarez M.D. 05/05/2023 9:57 AM Discharge Plan Visit Data Chief Complaint: Swelling/Edema to Extremity Stated Complaint: FEET SWELLING, TROUBLE BREATHING ED Provider: Huyen Herring Discharge Problem: Acute exacerbation of CHF (congestive heart failure), Shortness of breath, Elevated troponin, Non-ST elevation MS (NSTEMI), Acute kidney injury superimposed on chronic kidney disease, Elevated brain natriuretic peptide (BNP) level Forms Stand Alone Forms: My [facility] [place] Prescriptions Prescriptions: No Action (DME) Carepoint Luer Lock Syr-needle 3 mL 21 gauge x 1" syringe See Rx Instructions .Route Qty: 100 1RF Rx Instructions: Use to inject testosterone every 14 days metformin 500 mg tablet 500 mg PO BID Qty: 180 3RF (DME) pen needle, diabetic [BD Ultra-Fine Mini Pen Needle] 31 gauge x 3/16" needle See Rx Instructions .Route Qty: 100 3RF Rx Instructions: use 1 daily (DME) OneTouch Verio test strips Strip See Rx Instructions .MEDSUPPLY Qty: 300 3RF Rx Instructions: Use to test BG TID. testosterone cypionate 200 mg/mL oil 200 mg IM Q14D Qty: 10 5RF diazepam 5 mg tablet 5 mg PO TID PRN (Reason: anxiety) Qty: 30 0RF betamethasone dipropionate 0.05 % ointment 1 applic topical BID PRN (Reason: skin irritation) Qty: 45 11RF Rx Instructions: Apply to areas of the hand twice daily for up to 2 weeks as needed for flaring. dutasteride 0.5 mg capsule 0.5 mg PO QAM Qty: 90 3RF tamsulosin 0.4 mg capsule 0.4 mg PO QPM Qty: 90 3RF albuterol sulfate 90 mcg/actuation HFA aerosol inhaler 2 puff inhalation .every 4 hours PRN (Reason: shortness of breath or wheezing) Qty: 8.5 11RF cholecalciferol (vitamin D3) 50 mcg (2,000 unit) capsule 100 mcg PO BID insulin glargine [Lantus Solostar U-100 Insulin] 100 unit/mL (3 mL) insulin pen 17 unit subcut QPM hydrocodone-acetaminophen 5-325 mg tablet 1 tab PO Q6H PRN (Reason: pain) Qty: 100 0RF Anoro Ellipta 62.5-25 mcg/actuation blister with device 1 inh inhalation Q24H Qty: 1 11RF (DME) BD Eclipse 21 gauge x 1" needle See Rx Instructions .Route Qty: 100 1RF Rx Instructions: Use to inject Testosterone every 14 days diclofenac sodium 75 mg tablet,delayed release (DR/EC) 75 mg PO BID lisinopril 40 mg tablet 40 mg PO DAILY Qty: 30 0RF vitamin B complex Tablet 1 tab PO QAM Centrum Silver 400-250 mcg Tablet,Chewable 1 tab PO QAM furosemide 80 mg tablet 40 mg PO QAM Rx Instructions: If the weight increase 2lb overnight, take another 40mg. Eliquis 5 mg tablet 5 mg PO BID atorvastatin 80 mg tablet 80 mg PO HS Rx Instructions: TAKE 1 TABLET AT BEDTIME pantoprazole 40 mg tablet,delayed release (DR/EC) 40 mg PO QAM metoprolol tartrate 25 mg Tablet 75 mg PO BID Qty: 180 0RF Referrals Referrals: Tylor Almodovar MD [Primary Care Provider] -
[2023-05-05 09:57] LABS: Base Excess VBG 5.3 mEq/L; HCO3 VBG 33 mmol/L; Oxygen Saturation VBG < 60.0 %; PCO2 VBG 63 mmHg (38-50); PO2 VBG 34 mmHg; pH VBG 7.33 (7.36-7.41)
--- NOTE | 2023-05-05 09:59 | XRay Report ---
SINGLE VIEW CHEST CLINICAL HISTORY: Dyspnea FINDINGS: An AP, portable, upright chest radiograph is compared to chest x-ray and chest CT dated 04/22/2023. The heart is enlarged noting atherosclerotic calcification of the thoracic aorta. There is pu lmonary vascular congestion. There is bibasilar scarring/atelectasis. No large pleural effusion or pn eumothorax is seen. The skeletal structures are osteopenic. The bony thorax is grossly intact. A left shoulder arthroplasty is in place. Advanced arthritic change is seen in the right shoulder. IMPRESSION: Cardiomegaly with evidence of congestive failure. ACT 112: Negative or not required by law. Electronically signed by: Chun Casarez M.D. 05/05/2023 9:57 AM
[2023-05-05 10:05] LABS: Basophils # (auto) 0.05 K/uL (0.00-0.20); Basophils % (auto) 0.8 %; Eosinophils # (auto) 0.39 K/uL (0.00-0.50); Eosinophils % (auto) 6.3 %; Hematocrit (blood only) 50.7 % (42.0-52.0); Hemoglobin 16.8 g/dl (14.0-18.0); Immature Granulocytes # (auto) 0.01 K/uL (0.01-0.20); Immature Granulocytes % (auto) 0.2 %; Lymphocytes # (auto) 0.89 K/uL (1.20-3.40); Lymphocytes % (auto) 14.4 %; Mean Corpuscular Hemoglobin 32.4 pg (25.0-34.0); Mean Corpuscular Hgb Conc 33.1 g/dL (32.0-36.0); Mean Corpuscular Volume 97.7 fL (80.0-100.0); Mean Platelet Volume 9.8 fL (9.4-12.4); Monocytes # (auto) 0.77 K/uL (0.11-0.59); Monocytes % (auto) 12.5 %; Neutrophils # (auto) 4.07 K/uL (1.40-6.50); Neutrophils % (auto) 65.8 %; Platelet Count 188 K/uL (130-400); RDW Standard Deviation 58.2 fL (36.4-46.3); Red Blood Count 5.19 M/uL (4.70-6.10); White Blood Count 6.18 K/ul (4.8-10.8)
--- OUTSIDE RECORDS SUMMARY | 2023-05-05 10:18 | External Medical Summary | Summary of Care ---
Author Name Unknown Organization [facility] Address [address] [place] [address] Phone [phone] Care Team Providers Care Film Reader Name Role Phone Tylor Almodovar MD Primary Care Provider [phone] Encounter Details Date Type Department Care Team (Late st Contact Info) Description 01/28/2023 Telephone Otolaryngology [facility] [address] [facility] [place] [id number] Quique Ramos DO [address] [place] [id number] Allergies Active Allergy Reactions Criticality Noted Date Comments Penicillins 05/23/1999 itching documented as of this encounter (statuses as of 04/29/2023) Medications Medication Sig Dispensed Refills Start Date End Date Status TESTOSTERONE CYPIONATE 100 MG/ML IM OIL once every 2 weeks 0 Active TYLENOL WITH CODEINE #4 300-60 MG PO TABS 0.5 TO 1 TABLET EVERY 4 TO 6 HOURS NEEDED 0 02/20/2011 Active DICLOFENAC SODIUM 75 MG PO TBEC 1 tab two times daily 0 Active MAGNESIUM 400 MG PO CAPS 1 tab two times daily 0 Active HUMULIN 70/30 (70-30) 100 UNIT/ML SUBQ SUSP 2 inj per day 0 Active TRIAMCINOLONE ACETONIDE 0.1 % EX CREAIndications:Dermat itis Apply to affected area twice daily 60 g 5 10/28/2012 Active ASPIRIN 81 MG PO TABS 1 tab daily 0 Ac tive metoprolol (LOPRESSOR) 25 MG Tablet 75 mg in a.m. AND 50 MG AT NIGHT 0 Active dabigatran (PRADAXA) 75 MG Capsule 1 TAB TWICE DAILY 0 Acti ve doxazosin (CARDURA) 4 MG Tablet 1 TAB DAILY 0 Active Metformin HCl ER, MOD, 1000 MG TB24 1 TAB TWICE DAILY 0 Activ e ALPRAZolam (XANAX) 0.5 MG Tablet 1 TAB TWICE DAILY IF NEEDED 0 Active D5W 5% SOLN 50 mL with clindamycin 150 MG/ml SOLN 600 mg DIRECTED BY DENTIST 0 Active Misc. Devices (JAZMÍN [place] STETHOSCOPE) MISC 0 Active documented as of this encounter (statuses as of 04/29/2023) Active Problems Problem Noted Date Diagnosed Date HTN, GOAL BELOW 140/80 02/03/2012 Overview: Per HTN Protocol #27. DYSLIPIDEMIA, GOAL LDL BELOW 100 05/25/2009 Overview: Per Lipid Taxonomy. Type 2 diabetes mellitus wit h hemoglobin A1c goal of less than 7.0% 04/13/2009 Overview: Per Diabetes Taxonomy. ICD-10 update of inactive term INSOMNIA W SLEEP APNEA OBESITY, UNSPECIFIED FAM HX-DIABETES MELLITUS Overview: impaired fasting glucose GENERAL OSTEOARTHROSIS Overview: knees Erectile dysfunction Overview: w/penile implant documented as of this encounter (statuses as of 04/29/2023) Resolved Problems Problem Noted Date Diagnosed Date Resolved Date HTN, GOAL BELOW 130/80 07/12/200902/05 Overview: Per HTN Taxonomy. Mixed dyslipidemia Overview: Per Lipid Taxonomy. Type 2 diabetes mellitus wit h hemoglobin A1c goal of less than 7.0% 04/13/2009 Overview: Per Diabetes Taxonomy. ICD-10 update of inactive term HTN, goal below 140/90 07/12 Overview: Per HTN Taxonomy. documented as of this encounter (statuses as of 04/29/2023) Immunizations Name Administration Dates Next Due COVID-19 mRNA, LNP-s, No Pre serve, 2-Dose Series (Moderna) 08/19/2020,07/15/2020 documented as of this encounter Social History Tobacco Use Types Packs/Day Years Used Date Smoking Tobacco: Former Smokeless Tobacco: Never Comments:quit 1995 Alcohol Use Standard Drinks/Week Comments Yes 0 (1 standard drink = 0.6 oz pur e alcohol) rare Sex and Gender Information Value Date Recorded Sex Assigned at Not on file Gender Identity Not on file Sexual Orientation Not on file documented as of this encounter Miscellaneous Notes * Telephone Encounter - Kathleen Abdi - 01/28/2023 7:54 AM EDT Called pt to schedule referral appt. LMOM for pt to return call. Pt can be scheduled new patient next available. Kathleen Abdi documented in this encounter Plan of Treatment Health Maintenance Due Date Last Done Comments Pneumococcal Vaccine: 65+ Years (1 - PCV) 1947 Depression Screening 1953 Albumin/Creatinine Ratio 1959 Diabetic Eye Exam 1959 Diabetic Foot Exam 1959 DTaP,Tdap,and Td Vaccines (1 - Tdap) 01/19/1960 Zoster Vaccines (1 of 2) 1991 HbA1c 06/17/1999 12/15/1998, 07/17, 02/17/1998 GFR 05/21/2000 05/21/1999, 07/1998, 08/04/1998, Additional history exists Hepatitis B (1 of 3 - Risk 3-dose series) 2001 COVID-19 Vaccine (3 - season) 2023 08/19/2020, 07/15/2020 Influenza Vaccine (FLU shot) (#1) 2023 GARDASIL-HPV IMMUNIZATION SERIES Aged Out No longer eligible based on patient's age to complete this topic MENINGOCOCCAL (MENACTRA/MENVEO) Aged Out No longer eligible based on patient's age to complete this topic documented as of this encounter Medical Devices Not on filedocumented as of this encounter Care Teams Film Reader Relationship Specialty Start Date End Date Tylor Almodovar MD PCP - General Pulmonary Diseases 02/28/15 documented as of this encounter
[2023-05-05 10:19] LABS: Albumin Globulin Ratio 1.4 (0.9-2); Albumin Level 3.9 gm/dl (3.4-5.0); BUN Creatinine Ratio 30.2 (10-20); Bilirubin,Total 1.4 mg/dl (0.2-1.0); Calcium 10.4 mg/dl (8.6-10.3); Creatinine Clr Calc Pharmacy 37.4 ml/min; Est GFR (African American) 30.8 ml/min; Est GFR (Non-African American) 26.6 ml/min; Globulin 2.7 gm/dl (2.5-4.0); Magnesium 1.9 mg/dl (1.7-2.4); Potassium 4.8 mmol/L (3.5-5.1); Total Protein 6.6 gm/dl (6.0-8.3)
[2023-05-05 10:26] LABS: Troponin I High Sensitivity 46.6 pg/ml (0-20)
[2023-05-05 10:41] LABS: INR 1.1 (0.9-1.1); Prothrombin Time 12.2 Seconds (9.0-12.0)
[2023-05-05] MEDS ORDERED: BUMETANIDE 0.5 MG in SYRINGE 0 ML IV ONE (12:32)
[2023-05-05] MEDS ORDERED: FUROSEMIDE 40 MG/4 ML VIAL IV STA (12:37)
--- NOTE | 2023-05-05 12:37 | History & Physical Report ---
Date of Service May 05, 2023 Assessment & Plan (1) Acute exacerbation of CHF (congestive heart failure): Plan: Worsening MCKEON and pitting LE edema x1 week Recent [facility] admission for CHF exacerbation from 04/22-04/24 Echo on 04/22/2023 showed LVEF 50-55% Patient reports good compliance with Lasix 40 mg p.o. daily outpatient, and adherence to no salt diet Dry weight at time of 04/24 discharge was 123kg; on 05/05, it is 127.5kg BNP elevated at 925 CXR showed cardiomegaly with evidence of congestive failure EKG NSR with old RBBB Continuous telemetry monitoring Daily weights Strict I&O monitoring Daily fluid restriction of 1800 mL Supplemental oxygen as needed to maintain SPO2 >94% Lasix 80 mg IV twice daily [facility] CHF program referral Recommend switching from Lasix 40 mg p.o. daily outpatient to either Bumex or torsemide upon discharge A.m. CBC, BMP (2) Type 2 diabetes mellitus: Plan: Last A1c 6.2% on 01/27/2023 Hold metformin SSI with Lantus 17u HS Target BSG goal 110-150 mg/dL, CF 35, 10 carb ratio BSG ACHS T2DM diet Adjust regimen as needed AM A1c (3) Obstructive sleep apnea: Plan: Patient uses CPAP HS (4) Hypertension: Plan: BP 153/65 at time of admission Switched metoprolol tartrate 75mg BID --> metoprolol succinate 150mg QAM Continue metoprolol, lisinopril (5) Elevated troponin: Plan: Troponin 46.6 --> 54.2 on arrival; repeat pending Clinically, patient denies CP A.m. 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 He presented for LE edema b/l and gradual worsening of MCKEON x 1 week. Recent [facility] hospital admission for CHF exacerbation; discharged on 04/24. He endorses SOB with exertion, not at rest. He also notes associated difficulty sleeping with his CPAP, which he attributes to the buildup of "fluid in his chest". Patient has been sticking to a low-salt diet since discharge. He takes Lasix 40 mg p.o. as an outpatient. His dyspnea and lower extremity edema returned shortly after hospital discharge on 04/24. Patient reportedly spoke to his PCP on Wednesday 05/02 and was told to take 2 Lasix (80 mg) on Friday, which led to a 1 pound drop in fluids. He took all of his morning medications today 05/05. He manages his own medications and reports good compliance. Patient lives with his . Patient ambulates with a cane at baseline. ROS: Patient endorses worsening MCKEON, sleep deprivation, frequent urination, back pain (chronic), and swelling/tingling/numbness in LEs b/l. Patient denies fever, chills, SAUNDERS, dizziness, lightheadedness, fainting, CP, chest palpitations, pleuritic CP, SOB at rest, abdominal pain, N/V/D, blood in urine/stool, burning with urination, or pain in the legs. Social hx: Former tobacco cigarette smoker; 2ppd; quit in 1995 Endorses alcohol use; 1drink/daily; last drink on 05/04; whiskboone Denies recreational drug use No recent travel No PMHx of SC, DVT/PE, cancer, or CVAs Allergies Allergy/AdvReac Type Severity Reaction Status Date / Time nickel Allergy Intermediate contact Verified 05/05/23 11:41 dermatitis adhesive Allergy Mild SKIN Verified 05/05/23 11:41 IRRITATION,SWELLING codeine Allergy Mild ITCHING Verified 05/05/23 11:41 Penicillins Allergy Mild ITCHING Verified 05/05/23 11:41 ropivacaine Allergy Mild PRURITIS Verified 05/05/23 11:41 REACTION WITH KNEE INJECTION shrimp Allergy Mild ITCHY HANDS Verified 05/05/23 11:41 Home Medications Medication Instructions Recorded Confirmed Type multivit with min-folic 1 tab PO QAM 11/03/19 05/05/23 History acid-lutein 400 mcg-250 mcg chewable tablet (Centrum Silver) vitamin B complex 1 tab PO QAM 11/03/19 05/05/23 History safety needles 21 gauge x 1" (BD #100 ea 02/26/21 04/28/23 Rx Eclipse) cholecalciferol (vitamin D3) 50 100 mcg PO BID 07/10/21 05/05/23 History mcg (2,000 unit) capsule syringe with needle 3 mL 21 gauge #100 ea 09/14/21 04/28/23 Rx x 1" (365 Good Teacher Luer Lock Syringe with needle) metformin 500 mg tablet 500 mg PO BID #180 tabs 05/13/22 05/05/23 Rx BD Ultra-Fine Mini Pen Needle 31 #100 ea 06/08/22 04/28/23 Rx gauge x 3/16" (pen needle, diabetic) blood sugar diagnostic (OneTouch #300 ea 09/10/22 04/28/23 Rx Verio test strips) testosterone cypionate 200 mg/mL 200 mg IM Q14D #10 mL 09/12/22 05/05/23 Rx intramuscular oil insulin glargine 100 unit/mL (3 17 unit subcut QPM 10/29/22 05/05/23 History mL) subcutaneous pen (Lantus Solostar U-100 Insulin) diazepam 5 mg tablet 5 mg PO TID PRN anxiety #30 tabs 11/07/22 05/05/23 Rx betamethasone dipropionate 0.05 % 1 applic topical BID PRN skin 11/29/22 05/05/23 Rx topical ointment irritation #45 grams diclofenac sodium 75 mg 75 mg PO BID 01/29/23 05/05/23 History tablet,delayed release lisinopril 40 mg tablet 40 mg PO DAILY #30 tabs 01/29/23 05/05/23 Rx dutasteride 0.5 mg capsule 0.5 mg PO QAM #90 caps 02/19/23 05/05/23 Rx hydrocodone 5 mg-acetaminophen 325 1 tab PO Q6H PRN pain #100 tabs 03/03/23 05/05/23 Rx mg tablet tamsulosin 0.4 mg capsule 0.4 mg PO QPM #90 caps 04/15/23 05/05/23 Rx apixaban 5 mg tablet (Eliquis) 5 mg PO BID 04/22/23 05/05/23 History atorvastatin 80 mg tablet 80 mg PO HS 04/22/23 05/05/23 History furosemide 80 mg tablet 40 mg PO QAM 04/22/23 05/05/23 History pantoprazole 40 mg tablet,delayed 40 mg PO QAM 04/22/23 05/05/23 History release metoprolol tartrate 25 mg tablet 75 mg (3 x 25 mg) PO BID #180 tabs 04/24/23 05/05/23 Rx albuterol sulfate 90 mcg/actuation 2 puff inhalation .every 4 hours 04/28/23 05/05/23 Rx aerosol inhaler PRN shortness of breath or wheezing #8.5 grams umeclidinium 62.5 mcg-vilanterol 1 inh inhalation Q24H #1 inhaler 04/28/23 05/05/23 Rx 25 mcg/actuation powdr for inhalation (Anoro Ellipta) Past Med/Surg History Medical History (Updated 05/05/23 @ 13:35 by LAMBERT OrtezC) Degenerative disc disease Diabetes mellitus, type 2 DIET CONTROLLED (KETO DIET) Peripheral neuropathy Obesity Cardiomyopathy TACHYCARDIA INDUCED (RESOLVED) CKD (chronic kidney disease) Valvular disease MODERATE AI Hiatal hernia SUSPECTED CHF (congestive heart failure) DIASTOLIC CAD (coronary artery disease) CABG X2 (2012)- [facility], SVG-OM GERD (gastroesophageal reflux disease) Osteoarthritis BPH (benign prostatic hyperplasia) Personal history of kidney stones Hearing deficit Hyperlipidemia Hypertension Atrial fibrillation PAROXYSMAL Sleep apnea CPAP Surgical History Fusion of lumbar spine History of surgery PENIS PUMP IMPLANT (STILL INTACT/WORKING) History of cardiac cath 2012 (NO STENTS) DONE AT [facility] Hx of decompression of ulnar nerve LEFT= 09/07/15= GRADE VIEW 2, CARO #2, ETT 7.5 AT [facility] (ROPIVACAINE ALLERGY; NO PNB USED) History of carpal tunnel release LEFT History of total hip arthroplasty RIGHT OLGA LIDIA; REVISION History of total knee replacement B/L History of colonoscopy History of cholecystectomy History of appendectomy History of tooth extraction HAS IMPLANTS History of nasal septoplasty History of cataract surgery BILATERAL CATARACT Hx of heart bypass surgery CABG X2 (2012)- [facility], SVG-OM ([facility]) Family History Unknown Skin cancer Lung cancer Coronary arteriosclerosis Grandmother (Paternal) Family history of diabetes mellitus Social History Smoking Status: Never smoker Age Started Using Tobacco: 15; Age Quit Using Tobacco: 56; packs per day: 1.5; Second Hand Exposure: Yes (IN THE PAST); Do You Dip or Chew Tobacco: No; Hx Alcohol Use: Yes Alcohol type: hard liquor Hx Substance Use: No Preferred Language: Wolof Communication Ability: Effective Visual Impairment: No Limitations Tailman Required: No Beliefs That Will Affect Care: None marital status: Current Living Situation: Spouse Feels Safe at Home: Yes Assistive Devices: Cane, CPAP, Glasses and Hearing Aid - Bilateral Review of Systems Review of Systems: See HPI above Physical Exam Physical Exam: General: no acute distress; non-toxic appearing; well-nourished; cooperative HEENT: normocephalic, atraumatic; no scleral icterus; moderate cyanosis of the lips; PERRLA w/ EOMs intact; moist mucus membrane; vision and hearing grossly intact Neck: supple; + JVD; no lymphadenopathy; trachea midline Skin: warm, dry without signs of tenting; no cyanosis; no rashes, bruising, lesions, or erythema noted CV: chest wall NTP; RRR; S1/S2 normal; no murmurs/rubs/gallops; distant heart sounds; pulses intact and symmetric at radial, DP, and PT Lungs: no acute respiratory distress; symmetrical chest wall expansion; clear breath sounds across all lung agustin w/o adventitious sounds; no wheezing ABD: Soft, NTP; BS present; no rebound/guarding; no ascites; mild distention d/t body habitus MSK: no tics or fasciculations; +2 pitting edema in the LEs B/L Neuro: A&Ox3; normal mood and affect; fluent speech; no focal deficits; sensation grossly intact in the LEs B/L Results & Data Results & Data Vital Signs (Past 12 Hours) Vital Signs Temp Pulse Pulse Resp BP BP Pulse Ox 05/05/23 11:40 60 16 95 05/05/23 11:30 153/65 H 05/05/23 11:30 56 L 13 94 05/05/23 11:20 58 L 21 96 05/05/23 11:10 57 L 14 94 05/05/23 11:00 59 L 16 94 05/05/23 11:00 143/60 H 05/05/23 10:50 58 L 21 97 05/05/23 10:49 154/67 H 05/05/23 10:49 56 L 21 95 05/05/23 10:48 59 L 20 154/67 H 95 05/05/23 10:40 58 L 15 94 05/05/23 10:30 57 L 19 92 05/05/23 10:20 58 L 22 95 05/05/23 10:10 58 L 23 95 05/05/23 10:00 56 L 22 90 05/05/23 09:50 57 L 22 92 05/05/23 09:40 59 L 20 95 05/05/23 09:39 61 05/05/23 09:33 60 19 91 05/05/23 09:32 90 05/05/23 09:32 58 L 20 147/71 H 92 05/05/23 09:06 36.5 C 74 18 178/75 H 95 O2 Del Method 05/05/23 11:40 05/05/23 11:30 05/05/23 11:30 05/05/23 11:20 05/05/23 11:10 05/05/23 11:00 05/05/23 11:00 05/05/23 10:50 05/05/23 10:49 05/05/23 10:49 05/05/23 10:48 Room Air 05/05/23 10:40 05/05/23 10:30 05/05/23 10:20 05/05/23 10:10 05/05/23 10:00 05/05/23 09:50 05/05/23 09:40 05/05/23 09:39 05/05/23 09:33 05/05/23 09:32 Room Air 05/05/23 09:32 Room Air 05/05/23 09:06 Room Air Laboratory Results Abnormal lab results 05/05/23 05/05/23 Range/Units 09:43 11:25 RDW Std Deviation 58.2 H (36.4-46.3) fL RDW Coeff of Anjelica 16.0 H (11.5-14.5) % Lymph # (Auto) 0.89 L (1.20-3.40) K/uL [place] # (Auto) 0.77 H (0.11-0.59) K/uL PT 12.2 H (9.0-12.0) Seconds VBG pH 7.33 L (7.36-7.41) VBG pCO2 63 H (38-50) mmHg Carbon Dioxide 33 H (21-32) mmol/L BUN 67 H (6-23) mg/dl Creatinine 2.22 H (0.6-1.4) mg/dl BUN/Creatinine Ratio 30.2 H (10-20) Glucose 136 H (70-99(Fasting)) mg/dl Calcium 10.4 H (8.6-10.3) mg/dl Total Bilirubin 1.4 H (0.2-1.0) mg/dl Troponin I High Sens 46.6 H 54.2 H* (0-20) pg/ml B-Natriuretic Peptide 925 H (0-100) pg/ml Diagnostic Findings Chest X-Ray 05/05/23 09:13 SINGLE VIEW CHEST CLINICAL HISTORY: Dyspnea FINDINGS: An AP, portable, upright chest radiograph is compared to chest x-ray and chest CT dated 04/22/2023. The heart is enlarged noting atherosclerotic jeff cification of the thoracic aorta. There is pulmonary vascular congestion. There is bibasilar scarring/atelectasis. No large pleural effusion or pneumothorax is seen. The skeletal structures are osteopenic. The bony thorax is grossly intact. A left shoulder arthroplasty is in place. Advanced arthritic change is seen in the right shoulder. IMPRESSION: Cardiomegaly with evidence of congestive failure. ACT 112: Negative or not required by law. Electronically signed by: Chun Casarez M.D. 05/05/2023 9:57 AM Code Status & VTE Plan Code Status Full code VTE Prophylaxis Plan VTE Prophylaxis will be ordered: Yes Supervising Physician Co-Signing Physician Notes I personally saw and examined the patient. I independently reviewed the labs, EKG, imaging, problem list, medication list, past medical history and family history. I verified all martel points and agree with Brijesh Currie PA-C with the following exceptions and/or additions: 83 year old male with CHF presents to the ER with worsening leg swelling and shortness of breath after recent admission for CHF. He was receiving Lasix 80mg IV BID while inpatient and put back on his 40mg PO daily dose on discharge. He reports feeling better now than he did at the start of his last admission. O/E A&Ox3, HS RRR, no murmurs, no respiratory distress, Bibasal crackles, Abdo SNT, Abdo SNT, b/l 2+ pitting edema A/P Acute on chronic HFpEF - suspect failure due to significant reduction in dose as outpatient compared to inpatient and suspect he wasn't at his dry weight when he left. Getting worse despite doubling his Lasix dose as outpatient. Recommend referral to [facility] failure [facility] to help manage his fluid balance. Significant response already to Lasix 80mg IV (will continue BID dosing as he responded to this last admission to aim net negative 1.5-2L/day although given response may need less than this). Urine protein/Cr ratio added to assess how much his renal failure / CKD is contributing. Switch metoprolol tatrate to succinate to manage heart failure. 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 A. fib - currently in NSR, consider reduction in Eliquis if Cr remains > 1.5. Otherwise as above PG Care Time/CCT Total # of Minutes Spent Total Time Spent with Patient: Total time spent is greater than 50% in coordination of care (as documented) at patient's floor/unit and/or counseling patient: [place] [address] INT INP/OBS CARE 3/75MIN Patient Type Established Medical Decision Making Moderate Complexity Diagnoses Acute exacerbation of CHF (congestive heart failure) I50.9 Type 2 diabetes mellitus E11.9 Obstructive sleep apnea G47.33 Hypertension I10 Elevated troponin R79.89 CKD (chronic kidney disease) N18.9 Paroxysmal atrial fibrillation I48.0 COPD (chronic obstructive pulmonary disease) with emphysema J43.9 GERD (gastroesophageal reflux disease) K21.9 Benign prostatic hyperplasia N40.0
[2023-05-05 15:17] LABS: Appearance Urine Clear (Clear); Bilirubin Urine Negative (Negative); Blood Urine Negative (Negative); Color Urine Yellow; Glucose Urine UA Negative (Negative); Ketones Urine Negative (Negative); Leukocyte Esterase Urine Negative (Negative); Nitrite Urine Negative (Negative); Protein Urine Negative (Negative); Specific Gravity Urine 1.012 (1.000-1.030); Urobilinogen Urine Negative (Negative)
[2023-05-05] MEDS ORDERED: ALBUTEROL HFA 8 GM INHALER INH PRN (15:28)
[2023-05-05] MEDS ORDERED: GLUCOSE 10 TAB/TUBE PO PRN (15:28)
[2023-05-05] MEDS ORDERED: DEXTROSE 50% 50 ML SYRINGE IV PRN (15:28)
[2023-05-05] MEDS ORDERED: ACETAMINOPHEN 325 MG TAB PO PRN (15:28)
[2023-05-05] MEDS ORDERED: CARBOHYDRATES FOR HYPOGLYCEMIA PO PRN (15:28)
[2023-05-05] MEDS ORDERED: GLUCOSE 40% GEL 15 GM TUBE PO PRN (15:28)
[2023-05-05] MEDS ORDERED: GLUCAGON FOR INJ 1 MG VIAL SQ PRN (15:28)
[2023-05-05] MEDS ORDERED: diazePAM 5 MG TABLET PO PRN (15:28)
[2023-05-05 15:31] LABS: Total Protein Urine Random 14.7 mg/dl (0-11.9)
[2023-05-05 15:36] LABS: Protein Creatinine Ratio Urine 0.2 (0-0.2)
[2023-05-05] MEDS ORDERED: FLUOCINONIDE 0.05% OINT 15 GM TUBE EXT PRN (15:51)
[2023-05-05] MEDS: UMECLIDINIUM/VILANTEROL 62.5/25MCG 7 PUFFS/INHALER INH SCH (16:28)
[2023-05-05] MEDS: INSULIN ASPART PER UNIT CHARGE SC SCH ×2 (18:38→20:23)
[2023-05-05] MEDS: ATORVASTATIN 40 MG TAB PO SCH (20:23)
[2023-05-05] MEDS: APIXABAN 5 MG TABLET PO SCH (20:23)
[2023-05-05] MEDS: DICLOFENAC SODIUM 75 MG TABCR PO SCH (20:23)
[2023-05-05] MEDS: LANTUS PER UNIT CHARGE SQ SCH (20:24)
[2023-05-05] MEDS: TAMSULOSIN HCL 0.4 MG CAP PO SCH (20:24)
[2023-05-05] MEDS ORDERED: METOPROLOL TARTRATE 25 MG TAB PO ONE (21:00)
[2023-05-06] MEDS: HYDROCODONE/ACETAMOPHEN 5/325MG TAB PO PRN ×2 (00:39→20:00)
[2023-05-06 07:34] LABS: Basophils # (auto) 0.06 K/uL (0.00-0.20); Eosinophils # (auto) 0.39 K/uL (0.00-0.50); Eosinophils % (auto) 6.6 %; Hematocrit (blood only) 51.6 % (42.0-52.0); Hemoglobin 16.8 g/dl (14.0-18.0); Immature Granulocytes # (auto) 0.01 K/uL (0.01-0.20); Immature Granulocytes % (auto) 0.2 %; Lymphocytes # (auto) 0.95 K/uL (1.20-3.40); Mean Corpuscular Hemoglobin 32.3 pg (25.0-34.0); Mean Corpuscular Hgb Conc 32.6 g/dL (32.0-36.0); Mean Corpuscular Volume 99.2 fL (80.0-100.0); Mean Platelet Volume 9.6 fL (9.4-12.4); Monocytes # (auto) 0.69 K/uL (0.11-0.59); Monocytes % (auto) 11.6 %; Neutrophils # (auto) 3.85 K/uL (1.40-6.50); Neutrophils % (auto) 64.6 %; Platelet Count 175 K/uL (130-400); RDW Coefficient of Variation 15.9 % (11.5-14.5); RDW Standard Deviation 58.4 fL (36.4-46.3); White Blood Count 5.95 K/ul (4.8-10.8)
[2023-05-06] MEDS: FUROSEMIDE 40 MG/4 ML VIAL IV SCH ×2 (08:02→17:17)
[2023-05-06] MEDS: FINASTERIDE 5 MG TAB PO SCH (08:02)
[2023-05-06] MEDS: APIXABAN 5 MG TABLET PO SCH ×2 (08:02→20:03)
[2023-05-06] MEDS: DICLOFENAC SODIUM 75 MG TABCR PO SCH ×2 (08:02→20:02)
[2023-05-06] MEDS: lisinopril 40 MG TAB PO SCH (08:02)
[2023-05-06] MEDS: METOPROLOL SUCC 50MG EXT REL TAB PO SCH (08:03)
[2023-05-06] MEDS: PANTOprazole 40 MG TAB PO SCH (08:03)
[2023-05-06] MEDS: UMECLIDINIUM/VILANTEROL 62.5/25MCG 7 PUFFS/INHALER INH SCH (08:03)
[2023-05-06 08:05] LABS: Troponin I High Sensitivity 49.9 pg/ml (0-20)
[2023-05-06] MEDS: INSULIN ASPART PER UNIT CHARGE SC SCH ×4 (08:35→20:28)
[2023-05-06 08:58] LABS: BUN Creatinine Ratio 28.2 (10-20); Calcium 9.6 mg/dl (8.6-10.3); Creatinine Clr Calc Pharmacy 33.4 ml/min; Est GFR (African American) 27.4 ml/min; Est GFR (Non-African American) 23.6 ml/min; Potassium 4.7 mmol/L (3.5-5.1)
[2023-05-06 10:10] LABS: Estimated Average Glucose 137 mg/dl; Hemoglobin A1C 6.4 % (4.5-5.6)
--- NOTE | 2023-05-06 10:19 | Heart Failure Consultation ---
Date of Consultation May 06, 2023 Assessment & Plan (1) (HFpEF) heart failure with preserved ejection fraction: (2) COPD (chronic obstructive pulmonary disease) with emphysema: (3) Hypertension: (4) Paroxysmal atrial fibrillation: (5) Obstructive sleep apnea: Plan HFpEF: Currently with Class II-III symptoms. EF 55-60%. This is a readmission and therefore he was referred to the heart failure program. He is hypervolemic on exam today. Symptoms slowly improving but not at baseline. He is responding well to IV diuretics. Continue Lasix 80 mg IV BID with a goal of negative 1-2 L per day. Continue to closely monitor kidney function and electrolytes. Patient chronically takes Lasix 40 mg daily at home. Would like recommend 80 mg daily on discharge with labs and close follow up. Daily STANDING weights. Strict I&Os. Low sodium diet. We discussed the nature of heart failure and the goals of the program. He is agreeable to ongoing outpatient participation. Follow up within 7 days of discharge. History of Present Illness Attending Physician: Preston Garza History of Present Illness Mr. Mueller is a 79-year-old male with a history of CAD s/p CABG x 2 July 24, 2012 (THOMAS to LAD, SVG to OM), severe concentric LVH, chronic HFpEF, hypertension, dyslipidemia, chronic RBBB, paroxysmal atrial fibrillation (diagnosed in 2010 - asymptomatic), history of tachycardia-induced cardiomyopathy (resolved), at least mild to moderate AI, Type 2 DM, and obstructive sleep apnea (on CPAP with supplemental oxygen). Dr. 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 Most recent cardiovascular studies: 1. Dobutamine stress echo 03/13/18: Negative for ischemia at 88% MPHR. Normal resting LV size and function. 2. Echo 08/19/19: Moderately dilated left ventricle with normal systolic function. Estimated EF 55%. No regional wall motion abnormalities. Severe concentric LVH. Mildly dilated right ventricle with reduced systolic function. At least mild to moderate eccentric aortic regurgitation. AI may be underestimated due to poor image quality. No significant change from prior study on 11/28/14. 3. EKG 11/10/19: Normal sinus rhythm at 61 bpm. RBBB. 4. 07/13/21 Echo: Moderately dilated LV with normal systolic function. EF 55-60%. No RWMA. Moderate concentric LVH. RV not well visualized. Poor image quality. 5. 11/27/22 Dobutamine stress echo: Negative for ischemia. No chest pain. Normal LV function 55%. 6. 04/22/23 Echo: LV systolic function is low normal. No RWMA. Moderate concentric LVH. EF 50-55%. Mild MR. Patient presented with worsening dyspnea on exertion and edema. He was recently admitted last week with similar presentation. Weight had been stable at home however his symptoms worsened. He has evidence of hypervolemia on exam. BNP 925. CXR with evidence of CHF. He was initiated on Lasix 80 mg IV BID. Metoprolol tartrate switched over to succinate on admission. He's net negative 1 L so far and reports good urine output. He is feeling somewhat improved however continues to have significant edema. He is on room air. He denies chest pain, cough, palpitations. FamHx: Patient denies premature heart disease however has various older family members with CAD SocHx: Patient lives in [place] with his . He is retired from [employer]. He is a former smoker. He drinks alcohol 1-2 drinks/day. Allergies Allergy/AdvReac Type Severity Reaction Status Date / Time nickel Allergy Intermediate contact Verified 05/05/23 11:41 dermatitis adhesive Allergy Mild SKIN Verified 05/05/23 11:41 IRRITATION,SWELLING codeine Allergy Mild ITCHING Verified 05/05/23 11:41 Penicillins Allergy Mild ITCHING Verified 05/05/23 11:41 ropivacaine Allergy Mild PRURITIS Verified 05/05/23 11:41 REACTION WITH KNEE INJECTION shrimp Allergy Mild ITCHY HANDS Verified 05/05/23 11:41 Home Medications Medication Instructions Recorded Confirmed Type multivit with min-folic 1 tab PO QAM 11/03/19 05/05/23 History acid-lutein 400 mcg-250 mcg chewable tablet (Centrum Silver) vitamin B complex 1 tab PO QAM 11/03/19 05/05/23 History safety needles 21 gauge x 1" (BD #100 ea 02/26/21 04/28/23 Rx Eclipse) cholecalciferol (vitamin D3) 50 100 mcg PO BID 07/10/21 05/05/23 History mcg (2,000 unit) capsule syringe with needle 3 mL 21 gauge #100 ea 09/14/21 04/28/23 Rx x 1" ([facility] Luer Lock Syringe with needle) metformin 500 mg tablet 500 mg PO BID #180 tabs 05/13/22 05/05/23 Rx BD Ultra-Fine Mini Pen Needle 31 #100 ea 06/08/22 04/28/23 Rx gauge x 3/16" (pen needle, diabetic) blood sugar diagnostic (OneTouch #300 ea 09/10/22 04/28/23 Rx Verio test strips) testosterone cypionate 200 mg/mL 200 mg IM Q14D #10 mL 09/12/22 05/05/23 Rx intramuscular oil insulin glargine 100 unit/mL (3 17 unit subcut QPM 10/29/22 05/05/23 History mL) subcutaneous pen (Lantus Solostar U-100 Insulin) diazepam 5 mg tablet 5 mg PO TID PRN anxiety #30 tabs 11/07/22 05/05/23 Rx betamethasone dipropionate 0.05 % 1 applic topical BID PRN skin 11/29/22 05/05/23 Rx topical ointment irritation #45 grams diclofenac sodium 75 mg 75 mg PO BID 01/29/23 05/05/23 History tablet,delayed release lisinopril 40 mg tablet 40 mg PO DAILY #30 tabs 01/29/23 05/05/23 Rx dutasteride 0.5 mg capsule 0.5 mg PO QAM #90 caps 02/19/23 05/05/23 Rx hydrocodone 5 mg-acetaminophen 325 1 tab PO Q6H PRN pain #100 tabs 03/03/2304/17 Rx mg tablet tamsulosin 0.4 mg capsule 0.4 mg PO QPM #90 caps 04/15/23 05/05/23 Rx apixaban 5 mg tablet (Eliquis) 5 mg PO BID 04/22/23 05/05/23 History atorvastatin 80 mg tablet 80 mg PO HS 04/22/23 05/05/23 History furosemide 80 mg tablet 40 mg PO QAM 04/22/23 05/05/23 History pantoprazole 40 mg tablet,delayed 40 mg PO QAM 04/22/23 05/05/23 History release metoprolol tartrate 25 mg tablet 75 mg (3 x 25 mg) PO BID #180 tabs 04/24/23 05/05/23 Rx albuterol sulfate 90 mcg/actuation 2 puff inhalation .every 4 hours 04/28/23 05/05/23 Rx aerosol inhaler PRN shortness of breath or wheezing #8.5 grams umeclidinium 62.5 mcg-vilanterol 1 inh inhalation Q24H #1 inhaler 04/28/23 05/05/23 Rx 25 mcg/actuation powdr for inhalation (Anoro Ellipta) Patient History Medical History (Updated 05/06/23 @ 14:36 by Anya Alfonso PA-C) Degenerative disc disease Diabetes mellitus, type 2 DIET CONTROLLED (KETO DIET) Peripheral neuropathy Obesity Cardiomyopathy TACHYCARDIA INDUCED (RESOLVED) CKD (chronic kidney disease) Valvular disease MODERATE AI Hiatal hernia SUSPECTED CAD (coronary artery disease) CABG X2 (2012)- THOMAS-NICOLE, SVG-OM GERD (gastroesophageal reflux disease) Osteoarthritis BPH (benign prostatic hyperplasia) Personal history of kidney stones Hearing deficit Hyperlipidemia Hypertension Atrial fibrillation PAROXYSMAL Sleep apnea CPAP Surgical History Fusion of lumbar spine History of surgery PENIS PUMP IMPLANT (STILL INTACT/WORKING) History of cardiac cath 2012 (NO STENTS) DONE AT [address] Hx of decompression of ulnar nerve LEFT= 09/07/15= GRADE VIEW 2, CARO #2, ETT 7.5 AT [facility] (ROPIVACAINE ALLERGY; NO PNB USED) History of carpal tunnel release LEFT History of total hip arthroplasty RIGHT OLGA LIDIA; REVISION History of total knee replacement B/L History of colonoscopy History of cholecystectomy History of appendectomy History of tooth extraction HAS IMPLANTS History of nasal septoplasty History of cataract surgery BILATERAL CATARACT Hx of heart bypass surgery CABG X2 (2012)- MARTHA-NICOLE, SVG-OM ([facility]) Family History Unknown Skin cancer Lung cancer Coronary arteriosclerosis Grandmother (Paternal) Family history of diabetes mellitus Social History Smoking Status: Never smoker Age Started Using Tobacco: 15; Age Quit Using Tobacco: 56; packs per day: 1.5; Second Hand Exposure: Yes (IN THE PAST); Do You Dip or Chew Tobacco: No; Hx Alcohol Use: Yes Alcohol type: hard liquor Hx Substance Use: No Preferred Language: Indonesian Communication Ability: Effective Visual Impairment: No Limitations Painter Set Required: No Beliefs That Will Affect Care: None marital status: Current Living Situation: Spouse Feels Safe at Home: Yes Assistive Devices: Cane, CPAP, Glasses and Hearing Aid - Bilateral Physical Exam Physical Exam: Constitutional: Alert, oriented, in no acute distress HEENT: Head is atraumatic and normocephalic. EOMs intact. Sclera anicteric. Face is symmetric. No perioral cyanosis. Mucous membranes moist. Neck: Supple, + JVD Pulmonary: Normal respiratory effort, clear to auscultation bilaterally Cardiac: Regular rate and rhythm. Normal S1 and S2, no gallops, no rubs, no murmurs Extremities: 2+ radial pulses bilaterally. 2+ posterior tibialis pulses bilaterally. 2+ pitting edema to the knees. No cyanosis or clubbing. Abdomen: Normal bowel sounds, soft, non-tender, no abdominal mass palpated Skin: Normal skin color, turgor, and pigmentation, no rash, no skin lesions Neurological: Patient is awake, alert, and oriented. Pleasant and cooperative. Answers questions appropriately. Speech is clear. Normal movement in all 4 extremities. Gait pattern is unremarkable. Results & Data Vital Signs (Past 12 Hours) Vital Signs Temp Pulse Pulse Pulse Resp BP BP 05/06/23 07:49 97.7 F 57 L 18 149/60 H 05/06/23 07:31 57 L 05/06/23 07:28 05/06/23 03:58 97.3 F L 52 L 16 118/49 L 05/05/23 23:16 63 05/05/23 22:30 05/05/23 22:19 97.3 F L 68 16 176/75 H Pulse Ox O2 Del Method O2 Flow Rate 05/06/23 07:49 95 Room Air 05/06/23 07:31 05/06/23 07:28 CPAP 2 05/06/23 03:58 94 Room Air, BiPAP 05/05/23 23:16 05/05/23 22:30 Room Air 05/05/23 22:19 96 Room Air Coding Level of Care Code 18037 INT INP/OBS CARE 375MIN Diagnoses (HFpEF) heart failure with preserved ejection fraction I50.30 COPD (chronic obstructive pulmonary disease) with emphysema J43.9 Hypertension I10 Paroxysmal atrial fibrillation I48.0 Obstructive sleep apnea G47.33
[2023-05-06] MEDS: TAMSULOSIN HCL 0.4 MG CAP PO SCH (20:02)
[2023-05-06] MEDS: ATORVASTATIN 40 MG TAB PO SCH (20:03)
[2023-05-06] MEDS: LANTUS PER UNIT CHARGE SQ SCH (20:28)
--- NOTE | 2023-05-06 22:15 | Hospitalist Progress Note ---
Date of Service May 06, 2023 Assessment & Plan (1) Acute exacerbation of CHF (congestive heart failure): Plan: Worsening MCKEON and pitting LE edema x1 week Recent [facility] admission for CHF exacerbation from 04/22-04/24 Echo on 04/22/2023 showed LVEF 50-55% Patient reports good compliance with Lasix 40 mg p.o. daily outpatient, and adherence to no salt diet Dry weight at time of 04/24 discharge was 123kg; on 05/05, it is 127.5kg BNP elevated at 925 CXR showed cardiomegaly with evidence of congestive failure EKG NSR with old RBBB Continuous telemetry monitoring Daily weights Strict I&O monitoring Daily fluid restriction of 1800 mL Supplemental oxygen as needed to maintain SPO2 >94% Lasix 80 mg IV twice daily [facility] CHF program referral Recommend switching from Lasix 40 mg p.o. daily outpatient to either Bumex or torsemide upon discharge Patient is abotu 1-2 liters net negative. (2) Type 2 diabetes mellitus: Plan: Last A1c 6.2% on 01/27/2023 Hold metformin SSI with Lantus 17u HS Target BSG goal 110-150 mg/dL, CF 35, 10 carb ratio BSG ACHS T2DM diet Adjust regimen as needed (3) Obstructive sleep apnea: Plan: Patient uses CPAP HS (4) Hypertension: Plan: BP 153/65 at time of admission Switched metoprolol tartrate 75mg BID --> metoprolol succinate 150mg QAM Continue metoprolol, lisinopril (5) Elevated troponin: Plan: Troponin 46.6 --> 54.2 on arrival; repeat pending Clinically, patient denies CP A.m. troponin (6) CKD (chronic kidney disease): Plan: Normally stage IIIb Creatinine 2.22 (baseline 1.75) EGFR 26.6 on arrival, CrCl 37.4 Protein/creatinine ratio ordered, pending Okay to continue lisinopril Avoid nephrotoxic agents (7) Paroxysmal atrial fibrillation: Plan: Rate controlled; stable Continue Eliquis, metoprolol Consider decreasing Eliquis dose from 5 mg BID to 2.5mg BID in the outpatient setting (8) COPD (chronic obstructive pulmonary disease) with emphysema: Plan: Continue Anoro Ellipta (9) GERD (gastroesophageal reflux disease): Plan: Continue pantoprazole (10) Benign prostatic hyperplasia: Plan: Continue tamsulosin, dutasteride Plan Disposition: Admit to [facility] telemetry Full code AHA, T2DM, low-sodium diet (1800 mL fluid restriction daily) VTE PPx: On Eliquis Admission and Anticipated Discharge Date Admission Date: May 05, 2023 Subjective Patient reports no new symptoms. Review of Systems Review of Systems: All systems reviewed & are unremarkable except as noted in HPI & below Physical Exam Physical Exam: General: no acute distress; non-toxic appearing; well-nourished; cooperative HEENT: normocephalic, atraumatic; no scleral icterus; moderate cyanosis of the lips; PERRLA w/ EOMs intact; moist mucus membrane; vision and hearing grossly intact Neck: supple; + JVD; no lymphadenopathy; trachea midline Skin: warm, dry without signs of tenting; no cyanosis; no rashes, bruising, lesions, or erythema noted CV: chest wall NTP; RRR; S1/S2 normal; no murmurs/rubs/gallops; distant heart sounds; pulses intact and symmetric at radial, DP, and PT Lungs: no acute respiratory distress; symmetrical chest wall expansion; bibasilar rales. Results & Data Results & Data Vital Signs (Past 12 Hours) Vital Signs Temp Pulse Pulse Pulse Resp BP Pulse Ox 05/06/23 20:05 05/06/23 20:00 36.4 C L 73 92 H 16 150/56 H 05/06/23 16:44 61 05/06/23 15:54 36.4 C L 66 18 158/55 H 91 05/06/23 11:29 36.3 C L 58 L 18 151/63 H 93 O2 Del Method 05/06/23 20:05 Room Air 05/06/23 20:00 05/06/23 16:44 05/06/23 15:54 Room Air 05/06/23 11:29 Room Air PG Care Time/CCT Total # of Minutes Spent Total Time Spent with Patient: Total time spent is greater than 50% in coordination of care (as documented) at patient's floor/unit and/or counseling patient: Coding Level of Care Code 48466 SUB INP/OBS CARE 2/35MIN Diagnoses Acute exacerbation of CHF (congestive heart failure) I50.9 Type 2 diabetes mellitus E11.9 Obstructive sleep apnea G47.33 Hypertension I10 Elevated troponin R79.89 CKD (chronic kidney disease) N18.9 Paroxysmal atrial fibrillation I48.0 COPD (chronic obstructive pulmonary disease) with emphysema J43.9 GERD (gastroesophageal reflux disease) K21.9 Benign prostatic hyperplasia N40.0
[2023-05-07 04:47] VITALS: RESP 18; TEMP 97.5
[2023-05-07 07:23] LABS: Basophils # (auto) 0.05 K/uL (0.00-0.20); Eosinophils # (auto) 0.35 K/uL (0.00-0.50); Eosinophils % (auto) 6.7 %; Hematocrit (blood only) 49.6 % (42.0-52.0); Hemoglobin 16.5 g/dl (14.0-18.0); Immature Granulocytes # (auto) 0.02 K/uL (0.01-0.20); Immature Granulocytes % (auto) 0.4 %; Lymphocytes # (auto) 1.06 K/uL (1.20-3.40); Lymphocytes % (auto) 20.2 %; Mean Corpuscular Hemoglobin 31.9 pg (25.0-34.0); Mean Corpuscular Hgb Conc 33.3 g/dL (32.0-36.0); Mean Corpuscular Volume 95.8 fL (80.0-100.0); Mean Platelet Volume 9.8 fL (9.4-12.4); Monocytes # (auto) 0.63 K/uL (0.11-0.59); Neutrophils # (auto) 3.14 K/uL (1.40-6.50); Neutrophils % (auto) 59.7 %; Platelet Count 183 K/uL (130-400); RDW Coefficient of Variation 15.5 % (11.5-14.5); RDW Standard Deviation 55.5 fL (36.4-46.3); Red Blood Count 5.18 M/uL (4.70-6.10); White Blood Count 5.25 K/ul (4.8-10.8)
[2023-05-07 07:26] LABS: BUN Creatinine Ratio 28.3 (10-20); Calcium 9.4 mg/dl (8.6-10.3); Creatinine Clr Calc Pharmacy 32.6 ml/min; Est GFR (African American) 26.6 ml/min; Est GFR (Non-African American) 22.9 ml/min; Potassium 4.2 mmol/L (3.5-5.1)
[2023-05-07] MEDS: DICLOFENAC SODIUM 75 MG TABCR PO SCH (08:39)
[2023-05-07] MEDS: APIXABAN 5 MG TABLET PO SCH (08:39)
[2023-05-07] MEDS: METOPROLOL SUCC 50MG EXT REL TAB PO SCH (08:40)
[2023-05-07] MEDS: FINASTERIDE 5 MG TAB PO SCH (08:40)
[2023-05-07] MEDS: lisinopril 40 MG TAB PO SCH (08:40)
[2023-05-07] MEDS: PANTOprazole 40 MG TAB PO SCH (08:41)
[2023-05-07] MEDS: UMECLIDINIUM/VILANTEROL 62.5/25MCG 7 PUFFS/INHALER INH SCH (08:41)
[2023-05-07] MEDS: FUROSEMIDE 40 MG/4 ML VIAL IV SCH (08:46)
[2023-05-07] MEDS: INSULIN ASPART PER UNIT CHARGE SC SCH ×2 (08:47→12:42)
[2023-05-07 11:37] VITALS: BP 155/68; O2SAT 93
[2023-05-07 15:39] VITALS: PULSE 73
--- NOTE | 2023-05-07 15:40 | Discharge Summary ---
Date of Service May 07, 2023 Admission HPI Per Admitting Provider Tylor is a 83yo male with PMH of CHF, T2DM, GERD, BPH, HTN, dyslipidemia, paroxysmal A-fib, CAD, JUAN ALBERTO, and chronic LBP. He presented for LE edema b/l and gradual worsening of MCKEON x 1 week. Recent [facility] hospital admission for CHF exacerbation; discharged on 04/24. He endorses SOB with exertion, not at rest. He also notes associated difficulty sleeping with his CPAP, which he attributes to the buildup of "fluid in his chest". Patient has been sticking to a low-salt diet since discharge. He takes Lasix 40 mg p.o. as an outpatient. His dyspnea and lower extremity edema returned shortly after hospital discharge on 04/24. Patient reportedly spoke to his PCP on Wednesday 05/02 and was told to take 2 Lasix (80 mg) on Friday, which led to a 1 pound drop in fluids. He took all of his morning medications today 05/05. He manages his own medications and reports good compliance. Patient lives with his . Patient ambulates with a cane at baseline. ROS: Patient endorses worsening MCKEON, sleep deprivation, frequent urination, back pain (chronic), and swelling/tingling/numbness in LEs b/l. Patient denies fever, chills, SAUNDERS, dizziness, lightheadedness, fainting, CP, chest palpitations, pleuritic CP, SOB at rest, abdominal pain, N/V/D, blood in urine/stool, burning with urination, or pain in the legs. Social hx: Former tobacco cigarette smoker; 2ppd; quit in 1995 Endorses alcohol use; 1drink/daily; last drink on 05/04; elkin Denies recreational drug use No recent travel No PMHx of [place], DVT/PE, cancer, or CVAs Discharge Data Allergies Allergy/AdvReac Type Severity Reaction Status Date / Time nickel Allergy Intermediate contact Verified 05/05/23 11:41 dermatitis adhesive Allergy Mild SKIN Verified 05/05/23 11:41 IRRITATION,SWELLING codeine Allergy Mild ITCHING Verified 05/05/23 11:41 Penicillins Allergy Mild ITCHING Verified 05/05/23 11:41 ropivacaine Allergy Mild PRURITIS Verified 05/05/23 11:41 REACTION WITH KNEE INJECTION shrimp Allergy Mild ITCHY HANDS Verified 05/05/23 11:41 Consultations 05/05/23 12:19 ED Decision to Admit Stat 05/05/23 15:28 [facility] Referral Routine Hospital Course (1) Acute exacerbation of CHF (congestive heart failure): Worsening MCKEON and pitting LE edema x1 week Recent [facility] admission for CHF exacerbation from 04/22-04/24 Echo on 04/22/2023 showed LVEF 50-55% Patient reports good compliance with Lasix 40 mg p.o. daily outpatient, and adherence to no salt diet Dry weight at time of 04/24 discharge was 123kg; on 05/05, it is 127.5kg BNP elevated at 925 CXR showed cardiomegaly with evidence of congestive failure EKG NSR with old RBBB Continuous telemetry monitoring Daily weights Strict I&O monitoring Daily fluid restriction of 1800 mL Supplemental oxygen as needed to maintain SPO2 >94% Lasix 80 mg IV twice daily [facility] program referral Recommend switching from Lasix 40 mg p.o. daily outpatient to either Bumex or torsemide upon discharge Patient is abotu 1-2 liters net negative. (2) Type 2 diabetes mellitus: Last A1c 6.2% on 01/27/2023 Hold metformin SSI with Lantus 17u HS Target BSG goal 110-150 mg/dL, CF 35, 10 carb ratio BSG ACHS T2DM diet Adjust regimen as needed (3) Obstructive sleep apnea: Patient uses CPAP HS (4) Hypertension: BP 153/65 at time of admission Switched metoprolol tartrate 75mg BID --> metoprolol succinate 150mg QAM Continue metoprolol, lisinopril (5) Elevated troponin: Troponin 46.6 --> 54.2 on arrival; repeat pending Clinically, patient denies CP A.m. troponin (6) CKD (chronic kidney disease): Normally stage IIIb Creatinine 2.22 (baseline 1.75) EGFR 26.6 on arrival, CrCl 37.4 Protein/creatinine ratio ordered, pending Okay to continue lisinopril Avoid nephrotoxic agents (7) Paroxysmal atrial fibrillation: Rate controlled; stable Continue Eliquis, metoprolol Consider decreasing Eliquis dose from 5 mg BID to 2.5mg BID in the outpatient setting (8) COPD (chronic obstructive pulmonary disease) with emphysema: Continue Anoro Ellipta (9) GERD (gastroesophageal reflux disease): Continue pantoprazole (10) Benign prostatic hyperplasia: Continue tamsulosin, dutasteride Plan Disposition: Admit to [facility] telemetry Full code AHA, T2DM, low-sodium diet (1800 mL fluid restriction daily) VTE PPx: On Eliquis Discharge Plan Discharge Items Reason For Visit: CHF EXACERBATION, LE SWELLING Follow-up/Referrals: Tylor Almodovar MD [Primary Care Provider] - 05/12/23 9:30 am Anya Alfonso PA-C [Physician Toppiece Cutter] - 05/15/23 2:00 pm (Congestive Heart Failure Program Appointment Information Early follow up is essential to managing your heart failure. An appointment has been scheduled for you with the [facility] Heart Failure Program within 7 days of discharge. Anticipate this visit to be 30-60 minutes long. Please expect a physician internist phone call from one of our nurses approximately 48 hours from discharge. They will also be placing an order for lab work to be completed 1-2 days prior to your heart failure follow up appointment. Please be sure to have this done so we can go over the results when you come in. Office Location The cardiology office building is located in front of the hospital at [address]. Bring the following with you to your follow-up doctor appointments: Please bring your daily weight log any discharge paperwork all of your medication bottles with you to this visit. ) Medications and DC Order Prescriptions: No Action (DME) [facility] Luer Lock Syr-needle 3 mL 21 gauge x 1" syringe See Rx Instructions .Route Qty: 100 1RF Rx Instructions: Use to inject testosterone every 14 days metformin 500 mg tablet 500 mg PO BID Qty: 180 3RF (DME) pen needle, diabetic [BD Ultra-Fine Mini Pen Needle] 31 gauge x 3/16" needle See Rx Instructions .Route Qty: 100 3RF Rx Instructions: use 1 daily (DME) OneTouch Verio test strips Strip See Rx Instructions .MEDSUPPLY Qty: 300 3RF Rx Instructions: Use to test BG TID. testosterone cypionate 200 mg/mL oil 200 mg IM Q14D Qty: 10 5RF diazepam 5 mg tablet 5 mg PO TID PRN (Reason: anxiety) Qty: 30 0RF betamethasone dipropionate 0.05 % ointment 1 applic topical BID PRN (Reason: skin irritation) Qty: 45 11RF Rx Instructions: Apply to areas of the hand twice daily for up to 2 weeks as needed for flaring. dutasteride 0.5 mg capsule 0.5 mg PO QAM Qty: 90 3RF tamsulosin 0.4 mg capsule 0.4 mg PO QPM Qty: 90 3RF albuterol sulfate 90 mcg/actuation HFA aerosol inhaler 2 puff inhalation .every 4 hours PRN (Reason: shortness of breath or wheezing) Qty: 8.5 11RF cholecalciferol (vitamin D3) 50 mcg (2,000 unit) capsule 100 mcg PO BID insulin glargine [Lantus Solostar U-100 Insulin] 100 unit/mL (3 mL) insulin pen 17 unit subcut QPM hydrocodone-acetaminophen 5-325 mg tablet 1 tab PO Q6H PRN (Reason: pain) Qty: 100 0RF Anoro Ellipta 62.5-25 mcg/actuation blister with device 1 inh inhalation Q24H Qty: 1 11RF (DME) BD Eclipse 21 gauge x 1" needle See Rx Instructions .Route Qty: 100 1RF Rx Instructions: Use to inject Testosterone every 14 days diclofenac sodium 75 mg tablet,delayed release (DR/EC) 75 mg PO BID lisinopril 40 mg tablet 40 mg PO DAILY Qty: 30 0RF vitamin B complex Tablet 1 tab PO QAM Centrum Silver 400-250 mcg Tablet,Chewable 1 tab PO QAM furosemide 80 mg tablet 40 mg PO QAM Rx Instructions: If the weight increase 2lb overnight, take another 40mg. Eliquis 5 mg tablet 5 mg PO BID atorvastatin 80 mg tablet 80 mg PO HS Rx Instructions: TAKE 1 TABLET AT BEDTIME pantoprazole 40 mg tablet,delayed release (DR/EC) 40 mg PO QAM metoprolol tartrate 25 mg Tablet 75 mg PO BID Qty: 180 0RF Krames/Other Patient Handouts: Managing Type 2 Diabetes Admission Data Admit Date/Time: 05/05/23 13:16 Attending Provider: Preston Garza Admit Provider: Johnathan Valencia Primary Care Provider: Tylor Almodovar Other Providers: Johnathan Valencia; Anya Alfonso Other Interventions: Discharge Summary Assessment (RN) Last Done: 05/07/23 15:38 Coding Diagnoses Acute exacerbation of CHF (congestive heart failure) I50.9 Type 2 diabetes mellitus E11.9 Obstructive sleep apnea G47.33 Hypertension I10 Elevated troponin R79.89 CKD (chronic kidney disease) N18.9 Paroxysmal atrial fibrillation I48.0 COPD (chronic obstructive pulmonary disease) with emphysema J43.9 GERD (gastroesophageal reflux disease) K21.9 Benign prostatic hyperplasia N40.0
--- NOTE | 2023-05-08 05:36 | Electrocardiogram Report ---
Test Reason : Blood Pressure : / mmHG Vent. Rate : 062 BPM Atrial Rate : 062 BPM P-R Int : 188 ms QRS Dur : 186 ms QT Int : 490 ms P-R-T Axes : 051 014 028 degrees QTc Int : 497 ms Normal sinus rhythm Possible Left atrial enlargement Right bundle branch block Septal infarct (cited on or before 10-NOV-2019) Abnormal ECG When compared with ECG of 22-APR-2023 07:49, Premature ventricular complexes are no longer Present Questionable change in initial forces of Anterior leads Confirmed by Armand Dawkins ([id number]) on 05/08/2023 5:35:41 AM Referred By: REFERRED SELF Confirmed By:Armand Dawkins
== END 2023-05-07 16:19 | disposition home or self-care (01) | DRG 291 ==
LOC: ED 09:01 → SUATTDRO 13:16 → EDINP 13:16 → 2N 22:26
DX: Z79.4 Long term (current) use of insulin; Z98.1 Arthrodesis status; E78.5 Hyperlipidemia, unspecified; N40.0 Benign prostatic hyperplasia without lower urinary tract symptoms; Z88.8 Allergy status to other drugs, medicaments and biological substances; I45.10 Unspecified right bundle-branch block; I25.10 Atherosclerotic heart disease of native coronary artery without angina pectoris; Z87.891 Personal history of nicotine dependence; E11.22 Type 2 diabetes mellitus with diabetic chronic kidney disease; E11.42 Type 2 diabetes mellitus with diabetic polyneuropathy; Z88.0 Allergy status to penicillin; N18.32 Chronic kidney disease, stage 3b; I50.33 Acute on chronic diastolic (congestive) heart failure; I13.0 Hypertensive heart and chronic kidney disease with heart failure and stage 1 through stage 4 chronic kidney disease, or unspecified chronic kidney disease; I48.0 Paroxysmal atrial fibrillation; G47.33 Obstructive sleep apnea (adult) (pediatric); N17.9 Acute kidney failure, unspecified; Z95.1 Presence of aortocoronary bypass graft; Z79.01 Long term (current) use of anticoagulants; R79.89 Other specified abnormal findings of blood chemistry